=== PATIENT | female | born 1945 | race Caucasian/White ===

== ENCOUNTER 2024-07-25 21:36 | Inpatient (IN) | payer MEDICARE, OTHER, SELFPAY ==
[2024-07-25] VITALS (8 sets, daily range): BP systolic 101–126; BP diastolic 27–71
[2024-07-25 18:15] LABS: Urine Albumin 2+ (Neg - Trace); Urine Bilirubin Negative (Negative); Urine Character Slightly Cloudy (Clear); Urine Color Yellow; Urine Glucose Negative (Negative); Urine Ketone Negative (Negative); Urine Leukocyte 2+ (Negative); Urine Nitrite Positive (Negative); Urine Occult Blood 3+ (Negative); Urine Urobilinogen Negative (Neg - 1+)
[2024-07-25 18:21] LABS: ALT (SGPT) 15 U/L (0-35); AST (SGOT) 21 U/L (14-36); Albumin 3.1 g/dl (3.5-5.0); Alkaline Phosphatase 83 U/L (38-126); Blood Urea Nitrogen 64 mg/dl (7-17); Calcium 8.7 mg/dl (8.4-10.2); Carbon Dioxide 16 mmol/L (22-30); Chloride 97 mmol/L (98-107); Glucose 285 mg/dl (70-99); Hemoglobin 12.3 g/dL (12.0-16.0); Mean Corp Hgb Conc. 35.1 g/dL (33.0-37.0); Mean Corpuscular Volume 88.2 fL (81.0-99.0); Mean Platelet Volume 9.9 fL (7.4-10.4); Platelet Count 253 10^3/uL (130-400); Potassium 3.7 mmol/L (3.5-5.1); Red Blood Cell Count 3.97 10^6/uL (4.20-5.40); Red Cell Dist. Width 12.7 % (11.5-14.5); Sodium 133 mmol/L (135-145); Total Bilirubin 0.4 mg/dl (0.2-1.3); White Blood Cell Count 9.3 10^3/uL (4.8-10.8); eGFR 16.55
[2024-07-25 18:26] LABS: % Basophils 0.9 % (0-2); % Eosinophils 0.1 % (0-6); % Immature Granulocytes 1.2 % (0-0.5); % Lymphocytes 9.5 % (20.5-51.1); % Monocytes 8.5 % (1.7-9.3); % Neutrophils 79.8 % (42.2-75.2); Absolute Basophils 0.1 10^3/uL (0-0.2); Absolute Immature Granulocytes 0.1 10^3/uL (0-0.05); Absolute Lymphocytes 0.9 10^3/uL (1.2-3.4); Absolute Monocytes 0.8 10^3/uL (0.1-0.6); Absolute Neutrophils 7.4 10^3/uL (1.4-6.5); Nucleated Red Blood Cells % 0 %
[2024-07-25 19:08] LABS: Urine Squamous Cell 0-2 /LPF (Few); Urine White Cell 70-80 /HPF (0-5)
[2024-07-25 19:09] LABS: Urine Bacteria Many (Negative)
--- NOTE | 2024-07-25 19:09 | ED.GENMED ---
History of Present Illness
General
Chief Complaint: Weakness
Source: patient, family and prison records
Exam Limitations: altered mental status and dementia
Time Seen by Provider: 07/25/24 18:04
Nursing documentation reviewed up to this point in time: agreed with
History of Present Illness
History of Present Illness:
78-year-old female from [facility] diagnosed with a UTI urine showed gram-negative rods started on Macrobid yesterday the week ago she was able to get up and care for herself she has been in bed most of the day apparently
initially had low blood pressure, treated with fluid by EMS here appears globally weak and confused no fever no vomiting, spouse and transfer note states for intra-abdominal process has no abdominal pain my exam,
Past History
Past History
ED Past Medical History: Hypercholesterolemia and Other (Dementia hypertension left artificial knee hyperlipidemia osteoarthritis anxiety spinal stenosis)
ED Past Surgical History: Orthopedic
Social History
Tobacco: Non-smoker
Alcohol: None
Drug: None
Personal:
Living: prison
Employment: Retired
Review of Systems
Review of Systems
All Other Systems: Not applicable
Constitutional: Denies fever or fatigue
EENT: Reports no symptoms
Respiratory: Reports no symptoms
Cardiac: Reports no symptoms
ABD/GI: Reports no symptoms
: Reports no symptoms
Musculoskeletal: Reports no symptoms
Phy Exam
Physical Exam
Physical Exam:
Physical Exam
General: Chronically ill female initially hypotensive
Neck: Dry lips
Heart: Tachy
Lungs: Faint crackle
Abdomen: Soft nontender
Neuro: Globally weak knows her
Skin: no rash
Psychiatric: Flat affect
Extremities: no edema no calf pain
Course
Orders/Labs/Results
Orders:
Orders
07/25/24 17:47
Electrocardiogram (*1) Urgent
Reason for Study: Other
Other Reason for Exam: Possible Sepsis
Cardiac Monitoring- Treatment ONCE
IV Insert/Care/Rem.- Treatment PRN
Straight cath- Treatment ONCE
Complete Blood Count/With Diff Urgent
Comprehensive Metabolic Panel Urgent
Urinalysis Reflex To Culture Urgent
Date Specimen was Collected: 07/25/24
Time Specimen was Collected: 17:48
Urine Microscopic Reflex Cult Urgent
Urine Culture Urgent
JAYLENE Source: U
Specimen Description:
Date Specimen was Collected: 07/25/24
Time Specimen was Collected: 17:48
O2 Therapy [RESP] Urgent
Titrate/Wean O2 to maintain O2 sat greater than (%): 93
Special Instructions: TO MAINTAIN CONTINUOUS O2 SATS > OR = 93%
Pulse Ox/cont/shift [RESP] Urgent
Quantity: 1
Special Instructions: CONTINUOUS
07/25/24 17:48
EKG- Treatment ONCE
07/25/24 18:08
CR Chest Portable - 1 View Urgent
Comment:
Reason For Exam: sob
Reason Study Needs to be Portable: Patient Unstable
07/25/24 19:03
CT Abd/pel Without Iv Or Oral Urgent
Comment:
Reason For Exam: uti sepsis
Piperacillin/Tazo 2.25 Gram [Zosyn] 2.25 grams in 50 ml IV NOW
Abnormal Lab Results
07/25/24
17:47
RBC 3.97 L 10^6/uL
(4.20-5.40)
Hct 35.0 L %
(37.0-47.0)
Abs Immat Gran (auto) 0.1 H 10^3/uL
(0-0.05)
Absolute Neuts (auto) 7.4 H 10^3/uL
(1.4-6.5)
Absolute Lymphs (auto) 0.9 L 10^3/uL
(1.2-3.4)
Absolute Monos (auto) 0.8 H 10^3/uL
(0.1-0.6)
Immature Gran % 1.2 H %
(0-0.5)
Neutrophils % 79.8 H %
(42.2-75.2)
Lymphocytes % 9.5 L %
(20.5-51.1)
Sodium 133 L mmol/L
(135-145)
Chloride 97 L mmol/L
(98-107)
Carbon Dioxide 16 L mmol/L
(22-30)
BUN 64 H mg/dl
(7-17)
Creatinine 2.8 H mg/dL
(0.6-1.0)
Glucose 285 H mg/dl
(70-99)
Total Protein 6.0 L g/dl
(6.3-8.2)
Albumin 3.1 L g/dl
(3.5-5.0)
Ur Occult Blood Reflex 3+ A
(Negative)
Urine Nitrite (Reflex) Positive A
(Negative)
Leukocyte Esterase Rfl 2+ A
(Negative)
Urine RBC 3-6 A /HPF
(0-2)
Urine WBC (Reflex) 70-80 A /HPF
(0-5)
Urine Bacteria (Reflex) Many A
(Negative)
Urine Albumin (Reflex) 2+ A
(Neg - Trace)
07/25/24 17:47
07/25/24 17:47
Vital Signs
Initial and Last Documented VS:
Initial Vital Signs
Pulse Resp BP Pulse Ox
72 28 101/47 93
07/25/24 17:46 07/25/24 17:46 07/25/24 17:46 07/25/24 17:46
Last Documented Vital Signs
Temp Pulse Resp BP Pulse Ox
97.5 F 72 21 111/62 98
07/25/24 18:52 07/25/24 18:30 07/25/24 18:30 07/25/24 18:00 07/25/24 18:30
MDM/Problems Addressed
Differential Diagnosis Includes:
Sepsis dehydration UTI urinary obstruction
MDM/Problems Addressed:
Low blood pressure confusion renal insufficiency
Chronic conditions affecting care: Neurological disorder
Acute Exacerbation and/or Progression of Chronic Illness: Neurological disorder
*Radiology
Radiology exam reviewed: preliminary read by ED provider
*Pulse Oximetry
Patient hypoxic: yes
Comment: 91
*EKG
Interpreted by ED Provider?: Yes
Interpretation: abnormal
Comparison EKG: no comparison EKG present
Heart Rate: 78
Rate: normal
Martinez: normal axis
Ischemia: non-specific ST changes
*Radio Intelligence Operator Interpretation
Rate: normal
Interpretation: normal
Heart Rate: 78
Rhythm: sinus
*Critical Care Note
Total Time (30-74mins, 75-104mins- exclusive of procedures): 31
Data Reviewed
Source: patient, records and spouse
Prescriptions/Medications Considered But Not Given:
Stress dose steroid
Further Testing Considered But Not Given:
CT of the head
Update Note
Update Note:
Update labs are noted suspect she is dry transfer note states she has some abdominal pain send her for a CAT scan including other testing will check CT scan without contrast rule out urinary obstruction, started on broad-spectrum antibiotics
following resuscitation will be admitted
CRITICAL CARE STATEMENT: A total of 30 minutes of critical care time was provided for this patient. This includes management of unstable vital signs, evaluation of the patient at bedside, reviewing the patient's pertinent medical records discussion
with EMS providers and patient's family in addition to discussion with consultants, review of old EKGs and review of pertinent medical records. This time with separate from time utilized to perform the aforementioned documented procedures
ED Attending Note
-
Portions of this chart may have been created with voice recognition software.� Occasional wrong word or��sound alike� substitutions may have occurred due to the inherent limitations of voice recognition software.
Discharge Plan
Departure
Patient Disposition: Admit
Date of Disposition: 07/25/24
Time of Disposition: 19:17
Admit to: Telemetry
Presentation/result/management discussed w/ accepting MD/DO: Hospitalist
Patient with high blood pressure during this ER visit?: No
Condition: Fair
Covid-19: Not Applicable
Discharge Problem:
FLORIAN (acute kidney injury), Acute UTI
Interventions
Interventions:
*Risk Screen - Suicide Last Done: 07/25/24 18:29
*General Assessment Last Done: 07/25/24 18:28
*Neglect/Abuse Screening Last Done: 07/25/24 18:28
ED- Fall Risk Assessment Last Done: 07/25/24 18:29
*ED COVID-19 Vaccine History Last Done: 07/25/24 18:28
ED- Cardiac Assessment Last Done: 07/25/24 18:29
ED- Neurological Assessment Last Done: 07/25/24 18:29
ED- Pulmonary Assessment Last Done: 07/25/24 18:29
Discharge Date and Time
Print Language: MALTESE
--- NOTE | 2024-07-25 20:00 | HPS.HSE ---
Family Physician
-
Family Physician:
Chief Complaint
-
Altered mental status and urinary tract infection
History of Present Illness
This is a 78-year-old female with past medical history of dementia who currently resides at a dementia unit also has past medical history significant for hypertension, hyperlipidemia, prediabetes, presenting to ED due to worsening mental status.
Patient was diagnosed with a urinary tract infection at her facility yesterday. She had gram-negative rods. She was started on Macrobid yesterday. Patient usually was able to care for self for the has been more lethargic and mostly in bed all
day. She appears to be globally weak and more confused. Patient is currently unable to provide any additional history. No known history of fevers at home. No history of flank pain or an acute intra-abdominal process.
On arrival in the emergency department the patient was afebrile hemodynamically stable with blood pressure of 160 temp of 98.9 and oxygen saturation of 99% on room air. Chest x-ray was clear. ECG showed normal sinus rhythm at a rate of [address] or T wave changes. CBC was unremarkable. Chemistries notable for a bicarb of 16, BUN of 64 and a creatinine of 2.8. Elevated glucose at 285. UA was markedly positive.
Medical History
Past Medical History
Past Medical History: Reports Dementia and HTN
Past Surgical History: Reports None
Social History
Unable to obtain full social history at this time due to: Dementia
Family History
Family History: Not pertinent
Allergies / Home Medications
Allergies reflects when Allergies were last updated in [facility].
Home Medications with original date entered in [facility]
Allergy/Medication List:
Allergies
Allergy/AdvReac Type Severity Reaction Status Date / Time
No Known Allergies Allergy Unverified 07/25/24 19:47
Review of Systems
-
Unable to obtain full review of systems at this time due to: Dementia
Physical Exam
Vital Signs
Vital Signs
Temp Pulse Resp BP Pulse Ox
98.9 F 78 20 126/30 99
07/25/24 19:40 07/25/24 19:40 07/25/24 19:40 07/25/24 19:40 07/25/24 19:40
Physical Exam
General: Well Developed, Well Nourished, No Apparent Distress and Comfortable
HEENT: NormoCephalic, Anicteric, Moist mucous membranes and PERRLA
Respiratory: Clear
Cardiac: S1/S2 and Regular Rhythm
Breast: Deferred by me
GI: Soft, Non Tender, Non Distended, Normal Bowel Sounds and No Hepatosplenomegaly
Rectal: Deferred by Provider
Genito-urinary: Deferred by me
Musculoskeletal: No Clubbing, No Cyanosis and No Edema
Skin: Warm and Dry
Neuro: Awake, Oriented (oriented to person only) and Nonfocal/grossly intact
Hematologic/Lymphatic: No Lymphadenopathy
Psych: Calm
Laboratory Results
-
07/25/24 17:47
07/25/24 17:47
Laboratory Results
Total Bilirubin 0.4 mg/dl (0.2-1.3) 07/25/24 17:47
AST 21 U/L (14-36) 07/25/24 17:47
ALT 15 U/L (0-35) 07/25/24 17:47
Alkaline Phosphatase 83 U/L (38-126) 07/25/24 17:47
Data Reviewed
-
Diagnostic Radiology: Image Personally Visualized and interpreted
Medical Tests (Nuc Med, Echo, EKG etc): Image Personally Visualized and interpreted
Lab Data: Labs Reviewed by me
Old Records: Reviewed
Impression/Plan
-
IMPRESSION:
PLAN:
1. Toxic metabolic encephalopathy - (UTI w/ failure of outpatient abx). patient with history of dementia and was at dementia unit presents with worsening altered mental status typified by more lethargy and decreased interactiveness. At baseline
she is alert and oriented to person and can perform some activities of daily living. However she has been unable to do so for the last few days. She is currently alert but oriented to person only. She has no acute distress. Neurological exam was
nonfocal. She has a marked urinary tract infection which appears to be failing outpatient antibiotic treatment. Complicated by FLORIAN with some metabolic acidosis.
- admit to [facility]
- urine cultures sent
- continue ceftriaxone for now
2. FLORIAN - BUN 64, Cr 2.8. Unknown baseline creatinine. Non-oliguric. Suspect pre-renal flroian
- IV fluids overnight
- bladder scan to rule out obstruction
- obtain records in am
- avoid nephrotoxins
3. HTN - stable
- continue diltiazem
4. mild hyperglycemia. H/O prediabetes
- IV fluids, check a1c and bedside glucose (h/o prediabetes)
5. Intra-abdominal process - Notes from ans choice raise concern for intraabdominal process. However exam completely benign. Labs also not markedly alarming. No concern on my evaluation. CT abd w/o contrast pending.
- zosyn given in ED, continue ceftriaxone with metronidazole pending CT
DVT PPX - heparin sq
Code Status - DNR
--- NOTE | 2024-07-25 20:19 | PHANOTE ---
[employer] tech(07/25/24)-Called [facility] for medication list, they told me to call back in the morning to get it. Created list solely through [facility], due to lack of [facility] records. Unable to confirm any medications.
[2024-07-25] MEDS: ZOSYN 50 IV (20:39)
[2024-07-25] MEDS: LR 1000 IV (22:59)
[2024-07-25 23:08] LABS: Glucose - Point of Care 198 mg/dl (70-99)
[2024-07-25] MEDS: FLAGYL 500 MG 100 IV (23:57)
[2024-07-26] MEDS: HEPARIN 5000 UNITS SC ×3 (00:04→16:38)
[2024-07-26] MEDS: SEROQUEL PO (00:04)
[2024-07-26] MEDS: STERILE WATER FOR INJECTION 10 ML IV (02:11)
[2024-07-26] MEDS: ROCEPHIN 1000 MG IV (02:12)
[2024-07-26] MEDS: FLUSH (NSS) 1 FLUSH IV ×2 (02:13→02:14)
--- NOTE | 2024-07-26 04:05 | TRANSFER ---
Pt admitted to the unit from ED. Pt pulled over into bed from stretcher by nursing staff. Pt drowsy. AAXO1. Pt unable to answer admission questions. Bed alarm in place. Pt reoriented to room with call vega in reach. Plan of care ongoing.
[2024-07-26 06:15] LABS: Glucose - Point of Care 225 mg/dl (70-99)
[2024-07-26] MEDS: NOVOLOG FLEXPEN-LOW RESISTANCE 2 UNITS SC ×2 (06:42→18:07)
[2024-07-26] MEDS: TYLENOL/FEVERALL 650 MG RECTAL ×3 (07:23→23:51)
[2024-07-26 07:45] VITALS: BP 142/67
[2024-07-26 08:03] LABS: Glucose - Point of Care 199 mg/dl (70-99)
--- NOTE | 2024-07-26 08:19 | W.PN.HOSP.TC ---
Today's Communication/Plan
-
Abx pending Cx
Urology and GI eval
place dean
Assessment / Plan
Assessment / Plan
78yo F with PMHx of dementia, HLD, GERD brought from facility with worsening confyusion, recently foudn UTI and started on nitrofurantoin. C/O abd discomfort and CT abd showed signs of bladder outlet obstruction and cystitis. Also mild rectal wall
thickening with constipation
A/P:
#UTI
#Urinary retention with bladder outlet obstruction
#Non-obstructive nephrolithiasis
#FLORIAN with unknown Cr baseline and HAGMA
Follow Cr, if 2/2 obstruction - should improve with Dean, otherwise - nephrology
Ceftriaxone, pending UCx
Dean
#Rectal wall thickening with constipation
Laxatives and GI consult
#Dementia, unspecified
#GERD
cont homemmeds
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
#DJD
#L hemidiaphragm elevation
PCP follow up and monitoring
#Prediabetes
check HgbA1c
DVT ppx hep
DNR/DNI
I have spent at least 58min reviewing chart, test results, communication with consultants and direct patient care
Anticipated Discharge: > 48 hours
Subjective/Interval History
-
Date of Service: July 26, 2024
Objective Data
-
Labs:
Laboratory Results
07/26/24
07:31
WBC Pending
Hgb Pending
Hct Pending
Plt Count Pending
Sodium Pending
Potassium Pending
Chloride Pending
Carbon Dioxide Pending
BUN Pending
Creatinine Pending
Glucose Pending
Calcium Pending
Vital Signs:
Vital Signs
Temp Pulse Resp BP Pulse Ox
98.8 F 82 18 125/71 98
07/25/24 22:44 07/25/24 22:44 07/25/24 22:44 07/25/24 22:44 07/25/24 23:30
I&O
07/25/24 07/26/24 07/27/24
06:59 06:59 06:59
Intake Total 1050 / 1050 730 / 730
Balance 1050 / 1050 730 / 730
Review of Systems
-
History Source: Patient
All other systems: Reviewed and negative
Physical Exam
-
General: No Apparent Distress
HEENT: Normocephalic
Respiratory: Clear to Auscultation
Cardiac: Regular Rhythm
GI: Soft
Musculoskeletal: No Clubbing, No Cyanosis and No Edema
Skin: Warm
Neuro: Awake, Alert and Oriented (to herself only)
Psych: Calm
[2024-07-26 08:21] LABS: Hemoglobin 12.2 g/dL (12.0-16.0); Mean Corp Hgb Conc. 34.9 g/dL (33.0-37.0); Mean Corpuscular Volume 88.8 fL (81.0-99.0); Mean Platelet Volume 10.3 fL (7.4-10.4); Platelet Count 228 10^3/uL (130-400); Red Blood Cell Count 3.94 10^6/uL (4.20-5.40); Red Cell Dist. Width 12.5 % (11.5-14.5); White Blood Cell Count 8.1 10^3/uL (4.8-10.8)
[2024-07-26 08:42] LABS: Blood Urea Nitrogen 51 mg/dl (7-17); Calcium 8.7 mg/dl (8.4-10.2); Carbon Dioxide 17 mmol/L (22-30); Chloride 104 mmol/L (98-107); Glucose 204 mg/dl (70-99); Magnesium 2.4 mg/dl (1.6-2.3); Potassium 3.7 mmol/L (3.5-5.1); Sodium 137 mmol/L (135-145); eGFR 28.13
[2024-07-26 09:18] LABS: Glycohemoglobin (HgbA1c) 8.3 % (4.0-5.6)
--- NOTE | 2024-07-26 11:18 | PTOTSP ---
Dysphagia Evaluation
Patient presents with signs concerning for moderate oral and unspecified pharyngeal dysphagia at this time secondary to UTI with TME and baseline dementia.
Recommend:
1. IDDSI Level 4 Puree, IDDSI Level 0 Thin
2. Medications - crushed in puree if medically cleared
3. Strategies: 1:1 supervision/assist, upright to 90 degrees, PO only when awake/alert, small single sips/bites, slow rate, alternate sips/bites, ensure patient swallows (verbal cue/liquid wash as needed), remain upright for 30 minutes after PO as a
reflux precaution
4. Oral care 3x daily
5. Dysphagia tx at the acute care level.
[2024-07-26] MEDS: LR 1000 IV ×2 (11:28→21:41)
[2024-07-26] MEDS: ZEBETA 5 MG PO (12:19)
[2024-07-26] MEDS: SEROQUEL 25 MG PO ×3 (12:19→23:53)
[2024-07-26] MEDS: CARDIZEM CD 240 MG PO (12:19)
[2024-07-26 12:38] LABS: Glucose - Point of Care 178 mg/dl (70-99)
[2024-07-26] MEDS: NOVOLOG FLEXPEN-LOW RESISTANCE 1 UNITS SC (12:50)
--- NOTE | 2024-07-26 15:11 | CON.GI ---
Addendum entered and electronically signed by Foreign Bear MD 07/26/24 17:32:
I saw and examined the patient.
The PA's note was reviewed and I agree with the note.
Comment:
78 year old female h/o dementia residing in [place] who p/w UTI. CT on admission showed mild rectal wall thickening among other more relevant findings. In reviewing with spouse patient doesn't have rectal bleeding/diarrhea/melena as far as he is aware.
Attempted to contact [place] but nursing not available. Rectal exam with increased stool burden. Agree with enema. Pt's does not wish any aggressive evaluation. GI will s/o.
Original Note:
Consultation
-
Date/Time Consultation Requested: 07/26/24814
Date/Time Consultation Performed: 07/26/24 1510
Requesting Provider: Jose Cruz Sprague MD
Performing Provider: COLIN Mueller
Reason for Consultation: rectal wall thickening
Medical History
Chief Complaint / HPI
Chief Complaint: weakness
History of Present Illness:
Pt is an 78yo with hx dementia, HTN, hypercholesterolemia, anxiety presents from [facility] with UTI. She was placed on Macrobid and noted urinary retention, incontinence and FLORIAN. CT on admission with 3 mm non obstructing renal stone with
bladder distention and distention along ureter with intraanal collecting system distention possible back pressure and mild fecal burden with mild rectal wall thickening. In reviewing with spouse patient noted with mental decline last fall then
placed in Memory care in November. After several month adjustment she was doing ok but over then weekend increased weakness and change in mentation with increased incontinence and concern for UTI. She was placed on Macrobid but worsening symptoms
leading to admission. Per spouse noted with confusion but minimal verbal since admission. Some hx GERD but no nausea, vomiting, dysphagia, diarrhea, constipation, or rectal bleeding. hx prior cologuard neg 4 years ago and has declined
colonoscopies in past. Pt also noted with fever after admission.
Past Medical History
Past Medical History: Hypercholesterolemia, Psychiatric (anxiety) and Other (dementia, HTN, arthritis, spinal stenosis )
Past Surgical History: Orthopedic (TKR)
Social History
Tobacco: Non-Smoker
Alcohol: None
Drug: None
Personal:
Living: [facility]
Employment: Retired
Family History
Family History: Other
Allergies / Home Medications
Allergy/AdvReac Type Severity Reaction Status Date / Time
No Known Allergies Allergy Unverified 07/25/24 19:47
�Medication �Instructions �Recorded
atorvastatin 20 mg tablet 20 mg PO DAILY 07/25/24
bisoprolol 5 1 tab PO DAILY 07/25/24
mg-hydrochlorothiazide 6.25 mg
tablet
diltiazem HCl 240 mg 240 mg PO DAILY 07/25/24
capsule,extended release 24 hr
famotidine 40 mg tablet 40 mg PO DAILY 07/25/24
nitrofurantoin macrocrystal 100 mg 100 mg PO BID 07/25/24
capsule
quetiapine 25 mg tablet 25 mg PO BID 07/25/24
Review of Systems
-
History Source: Patient
Constitutional: Reports Weight Loss (few lbs with move to memory care )
EENT: Reports No Symptoms
Respiratory: Reports No Symptoms
Cardiac: Reports No Symptoms
Abdomen/GI: Reports Constipated
: Reports Incontinence
Musculoskeletal: Reports No Symptoms
Skin: Reports No Symptoms
Neurological: Reports Other (worsening mental status last few days )
Endocrine: Reports No Symptoms
Hematologic/Lymphatic: Reports No Symptoms
Vital Signs
Temp Pulse Resp BP Pulse Ox
97.7 F 106 17 138/76 94
07/26/24 07:45 07/26/24 12:19 07/26/24 07:45 07/26/24 12:19 07/26/24 07:45
Physical Exam
Exam
General: Well Developed, Well Nourished and No Apparent Distress
HEENT: Normocephalic and Anicteric
Respiratory: Clear
Cardiac: Regular Rhythm
GI: Soft, Non Tender and Non Distended
Rectal: Other (brown stool with increased stool burden on exam, disimpacted for small amount )
Musculoskeletal: No Clubbing and No Cyanosis
Skin: Warm and Dry
Neuro: Other (sleepy but opens eyes to stimulation, non verbal )
Psych: Calm
Results
WBC 8.1 10^3/uL (4.8-10.8) 07/26/24 07:31
Hgb 12.2 g/dL (12.0-16.0) 07/26/24 07:31
Hct 35.0 % (37.0-47.0) L 07/26/24 07:31
MCV 88.8 fL (81.0-99.0) 07/26/24 07:31
Plt Count 228 10^3/uL (130-400) 07/26/24 07:31
Absolute Neuts (auto) 7.4 10^3/uL (1.4-6.5) H 07/25/24 17:47
Sodium 137 mmol/L (135-145) 07/26/24 07:31
Potassium 3.7 mmol/L (3.5-5.1) 07/26/24 07:31
Chloride 104 mmol/L (98-107) 07/26/24 07:31
Carbon Dioxide 17 mmol/L (22-30) L 07/26/24 07:31
BUN 51 mg/dl (7-17) H 07/26/24 07:31
Creatinine 1.8 mg/dL (0.6-1.0) H 07/26/24 07:31
Calcium 8.7 mg/dl (8.4-10.2) 07/26/24 07:31
Total Bilirubin 0.4 mg/dl (0.2-1.3) 07/25/24 17:47
AST 21 U/L (14-36) 07/25/24 17:47
ALT 15 U/L (0-35) 07/25/24 17:47
Alkaline Phosphatase 83 U/L (38-126) 07/25/24 17:47
Diagnostic Image Results:
07/25/24 CT Abd/pel Without Iv Or Oral
3 mm nonobstructing left renal calculus. No right renal calculus. No ureteral calculus, bilaterally.
Moderate distention of the urinary bladder, and mild diffuse distention along the entire course of the ureters with minimal intrarenal collecting system and distention. Possibly reflecting back pressure from bladder distention. Cannot entirely
exclude reflux.
Mild soft tissue stranding adjacent to the bladder wall, raising possibility of cystitis.
Prior GI Procedures:
Colonoscopy: none
neg cologuard 4 years ago
Assessment / Plan
-
Pt is an 78yo with hx dementia, HTN, hypercholesterolemia, anxiety presents from [facility] with UTI. She was placed on Macrobid and noted urinary retention, incontinence and FLORIAN. CT on admission with 3 mm non obstructing renal stone with
bladder distention and distention along ureter with intraanal collecting system distention possible back pressure and mild fecal burden with mild rectal wall thickening. In reviewing with spouse patient noted with mental decline last fall then
placed in Memory care in November. After several month adjustment she was doing ok but over then weekend increased weakness and change in mentation with increased incontinence and concern for UTI. She was placed on Macrobid but worsening symptoms
leading to admission. Rectal exam with increased stool burden
-fever
-UTI
-fecal impaction with rectal thickening
-FLORIAN on admission
-decreased appetite
-dementia
other med problems:
-HTN
-hypercholesterolemia
-anxiety
-DNR
PLAN:
PT with soft impaction on rectal exam
s/p disimpacted for small amount of stool
will given enema to clear stool
add miralax daily
cont abx for UTI
IVF with FLORIAN
pureed diet as tolerated
long discussion with spouse. Pt would want conservative measure ok for enema but no aggressive measures with colonoscopy or GI testing with dementia
discussed palliative care options - he will consider pending hospital course
-
-
Thank you for consultation and allowing me to participate in the patient's care. Please call the entertainment production professional GI physician during the after hours with any questions or concerns.
--- NOTE | 2024-07-26 15:38 | CON.GI ---
Consultation
-
Date/Time Consultation Requested: 07/26/2024
Date/Time Consultation Performed: 07/26/2024
Performing Provider: Foreign Bear
Reason for Consultation: rectal wall thickening
Medical History
Chief Complaint / HPI
Chief Complaint: rectal wall thickening
History of Present Illness:
The patient is a 78 year old female with h/o dementia in NH, HLD, GERD sent in for worsening confusion. Found to have UTI and started on nitrofurantoin. Pt had CT abd on admission which showed bladder outlet obstruction and cystitis, as well as
mild rectal wall thickening. Attempted to contact ME but no answer. Spoke with , who states he is not aware of any diarrhea/blood in stool for the pt.
Past Medical History
Past Medical History: HTN and Other
Past Surgical History: Other
Social History
Tobacco: Non-Smoker
Alcohol: None
Allergies / Home Medications
Allergy/AdvReac Type Severity Reaction Status Date / Time
No Known Allergies Allergy Unverified 07/25/24 19:47
�Medication �Instructions �Recorded
atorvastatin 20 mg tablet 20 mg PO DAILY 07/25/24
bisoprolol 5 1 tab PO DAILY 07/25/24
mg-hydrochlorothiazide 6.25 mg
tablet
diltiazem HCl 240 mg 240 mg PO DAILY 07/25/24
capsule,extended release 24 hr
famotidine 40 mg tablet 40 mg PO DAILY 07/25/24
nitrofurantoin macrocrystal 100 mg 100 mg PO BID 07/25/24
capsule
quetiapine 25 mg tablet 25 mg PO BID 07/25/24
Review of Systems
Vital Signs
Temp Pulse Resp BP Pulse Ox
97.7 F 106 17 138/76 94
07/26/24 07:45 07/26/24 12:19 07/26/24 07:45 07/26/24 12:19 07/26/24 07:45
Physical Exam
Exam
General: Well Developed and Well Nourished
HEENT: Normocephalic
Respiratory: Clear
Cardiac: S1/S2
GI: Soft, Non Tender, Non Distended and Normal Bowel Sounds
Results
WBC 8.1 10^3/uL (4.8-10.8) 07/26/24 07:31
Hgb 12.2 g/dL (12.0-16.0) 07/26/24 07:31
Hct 35.0 % (37.0-47.0) L 07/26/24 07:31
MCV 88.8 fL (81.0-99.0) 07/26/24 07:31
Plt Count 228 10^3/uL (130-400) 07/26/24 07:31
Absolute Neuts (auto) 7.4 10^3/uL (1.4-6.5) H 07/25/24 17:47
Sodium 137 mmol/L (135-145) 07/26/24 07:31
Potassium 3.7 mmol/L (3.5-5.1) 07/26/24 07:31
Chloride 104 mmol/L (98-107) 07/26/24 07:31
Carbon Dioxide 17 mmol/L (22-30) L 07/26/24 07:31
BUN 51 mg/dl (7-17) H 07/26/24 07:31
Creatinine 1.8 mg/dL (0.6-1.0) H 07/26/24 07:31
Calcium 8.7 mg/dl (8.4-10.2) 07/26/24 07:31
Total Bilirubin 0.4 mg/dl (0.2-1.3) 07/25/24 17:47
AST 21 U/L (14-36) 07/25/24 17:47
ALT 15 U/L (0-35) 07/25/24 17:47
Alkaline Phosphatase 83 U/L (38-126) 07/25/24 17:47
Diagnostic Image Results:
Prior GI Procedures:
EGD:
Colonoscopy:
-
-
Thank you for consultation and allowing me to participate in the patient's care. Please call the electronic page makeup system operator GI physician during the after hours with any questions or concerns.
[2024-07-26 16:00] VITALS: BP 136/78
[2024-07-26 17:28] LABS: Glucose - Point of Care 201 mg/dl (70-99)
--- NOTE | 2024-07-26 20:35 | CONS.URO ---
Consultation
-
Date/Time Consultation Requested: 07/26/24
Date/Time Consultation Performed: 07/26/24
Requesting Provider: Darcie
Performing Provider: Andrew
Reason for Consultation: urinary retention, FLORIAN
Medical History
History of Present Illness
78F w/ dementia in memory care unit @[facility] presenting to ED w/ increased weakness, mental status changes, and increasing confusion.
Previously placed on Macrobid but continued to have worsening symptoms despite antibiotic therapy.
No prior urologic history noted per spouse.
Past Medical History
Past Medical History: Dementia, HTN, Hypercholesterolemia, Psychiatric (anxiety) and Other (arthritis, spinal stenosis)
Past Surgical History: Orthopedic (TKR)
Social History
Tobacco: Non-smoker
Alcohol: None
Drug: None
Personal:
Living: [place]way
Employment: Retired
Family History
Family History: Reviewed & Not Pertinent
Allergies/Home Medications
Allergies
Allergy/AdvReac Type Severity Reaction Status Date / Time
No Known Allergies Allergy Unverified 07/25/24 19:47
Home Medications
�Medication �Instructions �Recorded �Confirmed �Type
atorvastatin 20 mg tablet 20 mg PO DAILY 07/25/24 History
bisoprolol 5 1 tab PO DAILY 07/25/24 History
mg-hydrochlorothiazide 6.25 mg
tablet
diltiazem HCl 240 mg 240 mg PO DAILY 07/25/24 History
capsule,extended release 24 hr
famotidine 40 mg tablet 40 mg PO DAILY 07/25/24 History
nitrofurantoin macrocrystal 100 mg 100 mg PO BID 07/25/24 History
capsule
quetiapine 25 mg tablet 25 mg PO BID 07/25/24 History
Review of Systems
-
Unable to obtain full review of systems at this time due to: Dementia
History Source: Patient and Family
A 12 point Review of Systems was completed except as noted: No
Physical Exam
Vital Signs
Vital Signs
Temp Pulse Resp BP Pulse Ox
100.8 F H 115 17 136/78 91
07/26/24 17:00 07/26/24 16:00 07/26/24 07:45 07/26/24 16:00 07/26/24 16:00
Lab / Testing Results
Laboratory Results
07/26/24 07:31
07/26/24 07:31
Physical Exam
General: No Apparent Distress and Other (sleeping)
HEENT: Normocephalic and Anicteric
Respiratory: Non Labored Respirations
Breast: Deferred by me
GI: Soft, Non Tender and Non Distended
Rectal: Deferred by Provider
Genito-urinary: Clear Urine and Giles Catheter
Musculoskeletal: No Edema
Skin: Warm and Dry
Neuro: Nonfocal/Grossly Intact
Hematologic/Lymphatic: No Lymphadenopathy
Psych: Confused and Apparent Dementia
Assessment / Plan
-
cUTI
Acute urinary retention
FLORIAN
WBC WNL
Cr 2.8 => 1.8
UA +nitrites, +WBCs, many bacteria
UCx pending
CTAP w/o IV =>
3 mm non-obstructing left renal stone
Mild bilateral ureteral distention w/o hydronephrosis - suspected secondary to reflux or urinary retention
Distention of bladder w/ soft tissue stranding suspicious for cystitis
History obtained from spouse given patient's dementia.
- Maintain Giles catheter to drainage
- Bowel regimen to resolve impaction per GI
- IV Ceftriaxone pending UCx S/S
- Trend Cr w/ Giles catheter decompression
- Pending GOC determination by patient and spouse, consider indwelling Giles catheter long-term given rUTIs and poor mental status
D/w spouse.
D/w Hospitalist.
Data Reviewed
-
Total Time Spent with Patient (in minutes): 45
CT Scan: Image personally visualized and interpreted, Report Reviewed by Me, Discussed with Physician and Discussed with Family
Lab Data: Labs Reviewed, Discussed with Physician and Discussed with Family
Old Records: Reviewed
[2024-07-26 21:26] LABS: Glucose - Point of Care 247 mg/dl (70-99)
[2024-07-26 23:30] VITALS: BP 125/80
[2024-07-27] MEDS: FLUSH (NSS) 1 FLUSH IV ×3 (00:57→23:39)
[2024-07-27] MEDS: HEPARIN 5000 UNITS SC ×3 (00:59→15:47)
[2024-07-27] MEDS: STERILE WATER FOR INJECTION 10 ML IV ×2 (01:00→23:38)
[2024-07-27] MEDS: ROCEPHIN 1000 MG IV ×2 (01:01→23:38)
--- NOTE | 2024-07-27 06:54 | CM ---
met with patient who was sleeping most of day and tiana at bedside.patient lives at [facility] in memory care unit .she was able to ambulate with a rw and needs A with her adl.she has had a vn through [facility] at times.she has no hx
of ip rehab.
PCP is dr robert boyd and [facility] supplies meds.
PMH: dementia,htn,arthritis,uti's,spinal stenosis.
patient is adm with inc weakness,ms changes,inc confusion.she has uti on iv rocephin,urinary retention and dean catheter placed. she has a non obstructing renal calculus.Plan:dc back to memory care unit at [facility].
[2024-07-27] MEDS: LR 1000 IV (07:37)
[2024-07-27 07:40] VITALS: BP 142/68
[2024-07-27 07:57] LABS: Glucose - Point of Care 209 mg/dl (70-99)
[2024-07-27 08:29] LABS: Hematocrit 35.7 % (37.0-47.0); Hemoglobin 12.2 g/dL (12.0-16.0); Mean Corp Hgb Conc. 34.2 g/dL (33.0-37.0); Mean Corpuscular Hgb 30.9 pg (27.0-31.0); Mean Corpuscular Volume 90.4 fL (81.0-99.0); Mean Platelet Volume 10.6 fL (7.4-10.4); Platelet Count 184 10^3/uL (130-400); Red Blood Cell Count 3.95 10^6/uL (4.20-5.40); Red Cell Dist. Width 12.9 % (11.5-14.5); White Blood Cell Count 10.8 10^3/uL (4.8-10.8)
[2024-07-27 08:52] LABS: ALT (SGPT) 18 U/L (0-35); AST (SGOT) 45 U/L (14-36); Albumin 2.6 g/dl (3.5-5.0); Alkaline Phosphatase 95 U/L (38-126); Blood Urea Nitrogen 32 mg/dl (7-17); Calcium 8.6 mg/dl (8.4-10.2); Carbon Dioxide 25 mmol/L (22-30); Chloride 104 mmol/L (98-107); Glucose 208 mg/dl (70-99); Potassium 3.7 mmol/L (3.5-5.1); Sodium 142 mmol/L (135-145); Total Bilirubin 0.4 mg/dl (0.2-1.3); Total Protein 5.4 g/dl (6.3-8.2); eGFR 56.95
[2024-07-27] MEDS: NOVOLOG FLEXPEN-LOW RESISTANCE 2 UNITS SC ×2 (09:07→12:37)
[2024-07-27] MEDS: ZEBETA 5 MG PO (09:08)
[2024-07-27] MEDS: SEROQUEL 25 MG PO ×3 (09:08→21:10)
[2024-07-27] MEDS: CARDIZEM CD 240 MG PO (09:08)
[2024-07-27] MEDS: MIRALAX 17 GRAMS PO (09:08)
[2024-07-27 09:22] LABS: Absolute Neutrophils -Man Diff 8.3 10^3/uL (1.4-6.5); Band Neutrophils 11 % (0-3); Lymphocytes 16 % (20-51); Metamyelocytes 2 % (-); Monocytes 5 % (2-9); Normal RBC Morphology No; Nucleated Red Blood Cells 1 (-); Platelets Checked Yes; Segmented Neutrophils 66 % (42-75)
[2024-07-27 09:23] LABS: Anisocytosis 1+; Hypochromasia Slight; Polychromasia 1+
[2024-07-27 09:24] LABS: Total Cells Counted 100
--- NOTE | 2024-07-27 10:12 | W.PN.HOSP.TC ---
Today's Communication/Plan
-
EKG
telemetry
cont Ceftriaxone pending Ucx
Assessment / Plan
Assessment / Plan
78yo F with PMHx of dementia, HLD, GERD brought from facility with worsening confusion, recently found UTI and started on nitrofurantoin. C/O abd discomfort and CT abd showed signs of bladder outlet obstruction and cystitis. Also mild rectal wall
thickening with constipation
As per - for the past 3 weeks patient became more lethargic, stopped going for a food, became incontinent of the urine.
A/P:
#Acute metabolic encephalopathy most likely 2/2 UTI
#Urinary retention with bladder outlet obstruction
#Non-obstructive nephrolithiasis
#FLORIAN with unknown Cr baseline and HAGMA
Follow Cr, if 2/2 obstruction - should improve with Dean, otherwise - nephrology
Ceftriaxone, pending UCx
Daen
Urology: cont with dean, TOV before d/c if mentation improves
IVF
#Rectal wall thickening with constipation
Laxatives and GI consult
As per patient - currently hesitant for colonoscopy
cont with enema and laxatives
#Irregular HR
telemetry
EKG
#Dementia, unspecified
#GERD
cont home meds
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
#DJD
#L hemidiaphragm elevation
PCP follow up and monitoring
#DM type 2
HgbA1c 8.3%
DVT ppx hep
DNR/DNI
I have spent at least 58min reviewing chart, test results, communication with consultants and direct patient care
Anticipated Discharge: > 48 hours
Subjective/Interval History
-
Date of Service: July 27, 2024
Objective Data
-
Labs:
Laboratory Results
07/27/24
07:26
WBC 10.8
Hgb 12.2
Hct 35.7 L
Plt Count 184
Sodium 142
Potassium 3.7
Chloride 104
Carbon Dioxide 25
BUN 32 H
Creatinine 1.0
Glucose 208 H
Calcium 8.6
Total Bilirubin 0.4
AST 45 H
ALT 18
Alkaline Phosphatase 95
Vital Signs:
Vital Signs
Temp Pulse Resp BP Pulse Ox
98.5 F 105 18 142/68 95
07/27/24 07:40 07/27/24 07:40 07/27/24 07:40 07/27/24 07:40 07/27/24 07:40
I&O
07/26/24 07/27/24 07/28/24
06:59 06:59 06:59
Intake Total 1050 / 1050 1930 / 1930
Output Total 2175 / 2175
Balance 1050 / 1050 -245 / -245
Review of Systems
-
Unable to obtain full review of systems at this time due to: Acuity
Physical Exam
-
HEENT: Moist Mucous Membranes
Respiratory: Clear to Auscultation
Cardiac: Irregular Rhythm
GI: Soft, Nontender and Nondistended
Genito-urinary: Dean
Musculoskeletal: No Clubbing, No Cyanosis and No Edema
Skin: Warm
Neuro: Awake, Alert, Oriented and AO x 3
Psych: Calm
--- NOTE | 2024-07-27 10:34 | W.PN.UPDATE ---
Update Note
Progress Note Update
since patient still lethargic and now with new onset Afib - Head CT, MRI brain. if signs of stroke - will need neuro. STart ASA, statin, however due to longevity of the symptoms - not candidate for agressive treatment with tPa or thrombectomy
[2024-07-27] MEDS: LOPRESSOR 25 MG PO ×2 (10:56→21:10)
--- NOTE | 2024-07-27 11:09 | CM ---
Addendum entered by Ana Marie 07/27/24 15:32:
Referral sent in [facility].
Original Note:
competitive intelligence manager reviewed patient's chart and met with patient and patient was admitted from [facility] Memory Care unit, patient required assistance with dressing, used a walker with walking for short distances and uses w/c for longer distances,
patient is able to propel w/c per Camelia in admissions at [facility]. Patient needs PT/OT to assist with discharge planning for patient.
Plan; Message left with patient's spouse to review plan for patient.
[2024-07-27] MEDS: NSS 1000 IV (11:40)
[2024-07-27 11:52] LABS: Glucose - Point of Care 230 mg/dl (70-99)
[2024-07-27 12:00] VITALS: BP 128/61; PULSE 86; O2SAT 97
[2024-07-27 12:10] VITALS: BP 128/61; PULSE 74; O2SAT 97
--- NOTE | 2024-07-27 12:14 | CON.CAR ---
Addendum entered and electronically signed by Olman Angel MD 07/27/24 17:03:
I saw and examined the patient.
The [employer]'s note was reviewed and I agree with the note.
78-year-old woman with a history of dementia, hypertension hypercholesterolemia and diabetes who was admitted to the hospital service with a mental status change initial ECG with sinus rhythm. Patient now has atrial fibrillation. Heart rates
appear to be reasonably well-controlled on current dosing of Cardizem.. Appears that patient was on both Cardizem and bisoprolol as an outpatient. Unclear if prior history of atrial fibrillation. Unclear if she was found to have any
contraindication to anticoagulation in the past. Unclear with patient's fall risk or if she has had additional bleeding.
-Continue assessment of mental status as directed by primary team.
-Continue rate control with current medical therapy
-Will try to obtain additional information regarding atrial fibrillation and will continue to assess risk versus benefit of anticoagulation.
Original Note:
Consultation
Consultation Request
Date/Time Consultation Requested: 07/27/2024 10:30
Date/Time Consultation Performed: 07/27/2024 12:10
Requesting Provider: Dr. Nicolas
Performing Provider: COLIN Osorio for Dr. Angel
Reason for Consultation: Atrial fibrillation with rapid ventricular response
Medical History
-
Chief Complaint: Change in mental status
History of Present Illness:
Maggie Wilson is an 78-year-old female with hypertension, dyslipidemia, type 2 diabetes mellitus, hemangioma T9 and T11, and dementia who presented to the emergency department 07/25/2024 with a chief complaint and change in mental status. She
currently resides at [facility] in the memory care unit. The day prior to arrival she was started on Macrobid. She presented with an FLORIAN. Cardiology was consulted for atrial fibrillation with rapid ventricular response. She arrived to the
emergency department in sinus rhythm. Unfortunately, due to her mental status she is unable to contribute to this consultation.
Past Medical History
Past Medical History: HTN, Hypercholesterolemia and NIDDM
Social History
Tobacco: Non-Smoker
Alcohol: None
Drug: None
Personal:
Living: [facility]
Employment: Retired
Family History
Family History: Unable to Obtain
Allergies / Home Medications
Allergy/AdvReac Type Severity Reaction Status Date / Time
No Known Allergies Allergy Unverified 07/25/24 19:47
�Medication �Instructions �Recorded �Confirmed �Type
atorvastatin 20 mg tablet 20 mg PO DAILY 07/25/24 History
bisoprolol 5 1 tab PO DAILY 07/25/24 History
mg-hydrochlorothiazide 6.25 mg
tablet
diltiazem HCl 240 mg 240 mg PO DAILY 07/25/24 History
capsule,extended release 24 hr
famotidine 40 mg tablet 40 mg PO DAILY 07/25/24 History
nitrofurantoin macrocrystal 100 mg 100 mg PO BID 07/25/24 History
capsule
quetiapine 25 mg tablet 25 mg PO BID 07/25/24 History
Review of Systems
-
Unable to obtain full review of systems at this time due to: Dementia
History Source: Patient
Physical Exam
Vital Signs
Temp Pulse Resp BP Pulse Ox
98.5 F 105 18 142/68 95
07/27/24 07:40 07/27/24 07:40 07/27/24 07:40 07/27/24 07:40 07/27/24 07:40
Lab Results
07/27/24 07:26
07/27/24 07:26
Physical Exam
General: Well Developed, Well Nourished, No Apparent Distress and Comfortable
HEENT: Normocephalic, Anicteric and Moist Mucous Membranes
Respiratory: Clear and Non Labored Respirations
Cardiac: S1/S2 and Irregular Rhythm
Breast: Deferred by me
GI: Soft, Non Tender, Non Distended and Normal Bowel Sounds
Rectal: Deferred by Provider
Genito-urinary: No Costovertebral Tender
Musculoskeletal: No Clubbing, No Cyanosis and No Edema
Skin: Warm and Dry
Neuro: Awake
Hematologic/Lymphatic: No Lymphadenopathy
Psych: Calm
Impression / Plan
-
Atrial fibrillation with ventricular response
-Rate controlled on diltiazem (her home dose of 240 mg)
-Oral Anticoagulation: Non prior to arrival, no oral anticoagulation prior to MRI
-[id number]: score at least 5 (HTN, age 75 or more, Diabetes Mellitus, female gender)
HTN, bisoprolol�HCTZ on hold
Acute metabolic encephalopathy, in the setting of UTI, per primary and neurology, MRI pending
FLORIAN, resolved, Giles catheter in place, urology following as she has left renal calculus
Type 2 diabetes mellitus, HgbA1c 8.3%
Thoracic hemangioma T9 and T11
Data Reviewed
-
EKG: Report Reviewed by me (Atrial fibrillation with RVR, non specific T wave abnormality, rate 103)
Radiology: Report Reviewed by me (CXR: Diminished degree of inspiration. Minor asymmetric elevation of left diaphragm compared to the right. No evidence of pneumonia or congestive heart failure. No pneumothorax. No apparent pleural effusion.)
CT Scan: Report Reviewed by me (Head: No acute intracranial abnormality identified.) and Other (Abd/Pel: 3 mm non-obstructing left renal calculus)
Labs: Labs Reviewed by me
Old Records: Reviewed
[2024-07-27] MEDS: ASPIRIN 325 MG PO (12:37)
[2024-07-27 15:56] VITALS: BP 104/60
--- NOTE | 2024-07-27 16:15 | CON.NEURO4 ---
Consultation - Neurology 4
-
CONSULTING PHYSICIAN: Walter Og MD (Neurology)
REFERRING PHYSICIAN: Hospitalist
DICTATED BY: Walter Menard MD
DATE/TIME OF REQUEST: July 27, 2024
DATE/TIME OF CONSULTATION: 07/27/2024 1615
Reason for Consultation: Altered mental status
History of Present Illness:
This is a 78year old (right) handed (male) who has presented to the hospital with (chief complaint) altered mental status. He gives a history of hypertension osteoarthritis spinal stenosis mild dementia new onset atrial fibrillation who had been
in usual state of health till July 22 when she became more confused, lethargic and unable to interact with her who assist with her daily needs. She is bedbound and needs care [id number]. Initially urine had shown gram-negative
rods and was placed on Macrobid
EKG showed atrial fibrillation
Past Medical History: Dementia atrial fibrillation
Surgical History: Noncontributory
Family History: Noncontributory
Social History: Retired lives at assisted living facility with her
Allergies: No known allergies
Home Medications: Addendum
Review of Symptoms:
Patient denies any fever, headache, chest pain, shortness of breath, GI or symptoms.
�Per the HPI.�All systems are reviewed negative except above.
�-
Vital Signs:
The patient has a .
Physical Exam:
The patient is afebrile, heart sounds S1 and S2 are (regular / irregular), and chest is clear to auscultation bilaterally.
- If not clear, describe.
Neurologic Examination:
The patient is awake, alert and oriented x none. She is able to follow commands and answer questions appropriately. Speech is limited there is expressive aphasia or dysarthria.
On cranial nerve assessment, pupils are 3 mm bilateral, round and reactive to light and accommodation. Visual pineda are full. Extraocular movements are intact. Facial sensations are intact and bilaterally symmetrical, there is no facial asymmetry.
Hearing is intact bilaterally to normal conversation volume. Tongue palate and uvula are midline. Sternocleidomastoid strengths are full bilaterally.
Motor strengths are 4/5 bilateral upper and lower extremities on medical research [place] scale. There is no drift or involuntary movement noted.
Deep tendon reflexes are + bilateral upper and lower extremities and Babinski is absent bilaterally. Sensations of pain, touch, temperature and vibration are intact and bilaterally symmetrical. There was no extinction noted on double simultaneous
stimulation. Coordination is intact by finger to nose bilaterally.
Lab Results: See addendum
Neuro Imaging: CT head shows atrophy. Small vessel disease. Dilated ventricles
Impression:
Ms.) SHELLI DIAZ is a 78 year old F who has presented to the hospital with (symptoms/chief complaint). Of altered mental status secondary to dementia with new onset UTI and atrial fibrillation with
[id number]: score of 5 (HTN, age 75 or more, Diabetes Mellitus, female gender)
Differentials for the patient's presentation include:
1. Encephalopathy secondary to urosepsis
2. Dementia
3. Atrial fibrillation
Recommendations:
1. IV antibiotics
2. IV fluids
3. Nutritional support
4. Consider Eliquis given new onset atrial fibrillation
5. Keep MAP at 100
Discussed patient care with: Hospitalist
[2024-07-27 16:56] LABS: Glucose - Point of Care 192 mg/dl (70-99)
[2024-07-27] MEDS: NOVOLOG FLEXPEN-LOW RESISTANCE 1 UNITS SC (17:34)
[2024-07-27 20:06] VITALS: BP 125/67
[2024-07-27] MEDS: ELIQUIS 5 MG PO (21:10)
[2024-07-27 22:11] LABS: Glucose - Point of Care 178 mg/dl (70-99)
[2024-07-27 23:48] VITALS: BP 121/66
[2024-07-28] MEDS: FLUSH (NSS) 1 FLUSH IV ×2 (02:19→23:33)
[2024-07-28 03:53] VITALS: BP 110/70
[2024-07-28 07:48] LABS: Hematocrit 36.5 % (37.0-47.0); Hemoglobin 12.3 g/dL (12.0-16.0); Mean Corp Hgb Conc. 33.7 g/dL (33.0-37.0); Mean Corpuscular Hgb 29.9 pg (27.0-31.0); Mean Corpuscular Volume 88.8 fL (81.0-99.0); Mean Platelet Volume 10.8 fL (7.4-10.4); Platelet Count 163 10^3/uL (130-400); Red Blood Cell Count 4.11 10^6/uL (4.20-5.40); Red Cell Dist. Width 13.4 % (11.5-14.5)
[2024-07-28 07:50] VITALS: BP 135/69
[2024-07-28 07:59] LABS: ALT (SGPT) 25 U/L (0-35); AST (SGOT) 61 U/L (14-36); Albumin 2.6 g/dl (3.5-5.0); Alkaline Phosphatase 101 U/L (38-126); Blood Urea Nitrogen 26 mg/dl (7-17); Calcium 8.4 mg/dl (8.4-10.2); Carbon Dioxide 23 mmol/L (22-30); Chloride 109 mmol/L (98-107); HDL Cholesterol 16 mg/dl; LDL Cholesterol, Calculated 18 mg/dl; Potassium 3.8 mmol/L (3.5-5.1); Sodium 144 mmol/L (135-145); Total Bilirubin 0.5 mg/dl (0.2-1.3); Total Cholesterol 73 mg/dl (50-199); Total Protein 5.3 g/dl (6.3-8.2); Triglyceride 196 mg/dl (10-149); Very Low Density Lipoprotein 39 mg/dl (0-30); eGFR > 60.00
[2024-07-28 08:02] LABS: Glucose - Point of Care 193 mg/dl (70-99)
[2024-07-28] MEDS: NOVOLOG FLEXPEN-LOW RESISTANCE 1 UNITS SC ×2 (08:10→18:08)
[2024-07-28] MEDS: ELIQUIS 5 MG PO (08:10)
[2024-07-28] MEDS: LOPRESSOR 25 MG PO ×2 (08:10→20:36)
[2024-07-28] MEDS: MIRALAX 17 GRAMS PO (08:11)
[2024-07-28] MEDS: SEROQUEL 25 MG PO ×2 (08:11→15:29)
[2024-07-28] MEDS: CARDIZEM CD 240 MG PO (08:11)
[2024-07-28 08:13] LABS: Glucose 188 mg/dl (70-99)
[2024-07-28 08:21] LABS: TSH Reflex To Free T4 0.46 uIU/ml (0.47-4.68)
[2024-07-28 08:47] LABS: % Basophils 0.1 % (0-2); % Eosinophils 0.1 % (0-6); % Immature Granulocytes 5.2 % (0-0.5); % Lymphocytes 9.2 % (20.5-51.1); % Monocytes 6.9 % (1.7-9.3); % Neutrophils 78.5 % (42.2-75.2); Absolute Immature Granulocytes 0.8 10^3/uL (0-0.05); Absolute Lymphocytes 1.4 10^3/uL (1.2-3.4); Absolute Neutrophils 11.7 10^3/uL (1.4-6.5); Nucleated Red Blood Cells % 0 %
[2024-07-28 08:48] LABS: Free T4 1.25 ng/dl (0.78-2.19)
--- NOTE | 2024-07-28 10:00 | W.PN.HOSP.TC ---
Today's Communication/Plan
-
cont ABx
Assessment / Plan
Assessment / Plan
78yo F with PMHx of dementia, HLD, GERD brought from facility with worsening confusion, recently found UTI and started on nitrofurantoin. C/O abd discomfort and CT abd showed signs of bladder outlet obstruction and cystitis. Also mild rectal wall
thickening with constipation
As per - for the past 3 weeks patient became more lethargic, stopped going for a food, became incontinent of the urine.
A/P:
#Acute metabolic encephalopathy most likely 2/2 UTI
#Urinary retention with bladder outlet obstruction
#Non-obstructive nephrolithiasis
#FLORIAN with unknown Cr baseline and HAGMA
Follow Cr, if 2/2 obstruction - should improve with Dean, otherwise - nephrology
Ceftriaxone, UCx ceftriaxone sensitive K.pneumonia
Dean
Urology: cont with dean, TOV before d/c if mentation improves
IVF
MRI brain neg for stroke, MRA neg for carotid stenosis
Neurology eval: most likely dementia with episodes of delirium as patients mentation fluctuating from very lethargic to wide awake
#Rectal wall thickening with constipation
Laxatives and GI consult
As per patient - currently hesitant for colonoscopy
cont with enema and laxatives
#Irregular HR
telemetry
EKG
#Dementia, unspecified
#GERD
cont home meds
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
#DJD
#L hemidiaphragm elevation
PCP follow up and monitoring
#DM type 2
HgbA1c 8.3%
DVT ppx hep
DNR/DNI
I have spent at least 38min reviewing chart, test results, communication with consultants and direct patient care
Anticipated Discharge: > 48 hours
Subjective/Interval History
-
Date of Service: July 28, 2024
Objective Data
-
Labs:
Laboratory Results
07/28/24
06:44
WBC 15.0 H
Hgb 12.3
Hct 36.5 L
Plt Count 163
Sodium 144
Potassium 3.8
Chloride 109 H
Carbon Dioxide 23
BUN 26 H
Creatinine 0.9
Glucose 188 H
Calcium 8.4
Total Bilirubin 0.5
AST 61 H
ALT 25
Alkaline Phosphatase 101
Vital Signs:
Vital Signs
Temp Pulse Resp BP Pulse Ox
97.7 F 74 20 135/69 94
07/28/24 07:50 07/28/24 07:50 07/28/24 07:50 07/28/24 07:50 07/28/24 07:50
I&O
07/27/24 07/28/24 07/29/24
06:59 06:59 06:59
Intake Total 0 / 1929 1020 / 1020
Output Total 2175 / 2175 950 / 950
Balance -245 / -245 70 / 70
Review of Systems
-
Unable to obtain full review of systems at this time due to: Dementia
Physical Exam
-
General: Other (lethargic)
HEENT: Moist Mucous Membranes
Respiratory: Clear to Auscultation
Cardiac: Regular Rhythm
GI: Soft, Nontender and Nondistended
Genito-urinary: Dean
Neuro: Awake, Alert, Oriented and AO x 3
Psych: Calm
--- NOTE | 2024-07-28 10:58 | W.PN.CD ---
Today's Communication / Plan
-
Add Eliquis
Check Co-pay to assure she can go home on that med
update of risks/benefits/alternatives of anticoagulation
Plan elective echo
EKG in AM
Impression / Plan
-
78 yo presents with altered mental status attributed to infection and found to be in afib with RVR
New atrial fibrillation with ventricular response
- Spoke to , he does not believe that his has had AFib before
- Rate: improved on meds
- Oral Anticoagulation: None prior, spoke to and he agrees to begin
- [id number]: score at least 5 (HTN, age 75 or more, Diabetes Mellitus, female gender)
HTN, usually on dilt 240 and bisoprolol-HCTZ dose uncertain
Acute metabolic encephalopathy, in the setting of UTI, per primary and neurology, MRI pending
FLORIAN, resolved, Giles catheter in place, urology following as she has left renal calculus
Type 2 diabetes mellitus, HgbA1c 8.3%
Thoracic hemangioma T9 and T11
Dementia, memory care [facility]
Subjective:
She is not responsive
Physical Exam
Vital Signs/Labs
Vital Signs
Temp Pulse Resp BP Pulse Ox
97.7 F 74 20 135/69 94
07/28/24 07:50 07/28/24 07:50 07/28/24 07:50 07/28/24 07:50 07/28/24 07:50
07/27/24 07/28/24 07/29/24
06:59 06:59 06:59
Actual Weight 75.206 kg 75.778 kg
07/28/24 06:44
07/28/24 06:44
Magnesium 2.4 mg/dl (1.6-2.3) H 07/26/24 07:31
Triglycerides 196 mg/dl (10-149) H 07/28/24 06:44
LDL Cholesterol, Calc 18 mg/dl 07/28/24 06:44
VLDL Cholesterol, Calc 39 mg/dl (0-30) H 07/28/24 06:44
HDL Cholesterol 16 mg/dl 07/28/24 06:44
Free T4 1.25 ng/dl (0.78-2.19) 07/28/24 06:44
Physical Exam
Constitutional: No acute distress
EENT: Anicteric
Cardiovascular: Rhythm/rate is irregular and S1S2 is normal
Respiratory: Respiratory effort normal and Lungs clear to auscul.
GI: Soft and Distention absent
Neuro/Psych: Alert
Data Reviewed
-
Date of Service: July 28, 2024
[2024-07-28 11:25] VITALS: BP 140/73
[2024-07-28] MEDS: TYLENOL/FEVERALL 650 MG RECTAL (11:25)
--- NOTE | 2024-07-28 11:55 | W.PN.UPDATE ---
Update Note
Progress Note Update
Hematuria -will transition to Heparin tonight at 8pm and watch Hgb
--- NOTE | 2024-07-28 12:05 | CM ---
Addendum entered by Mildred Hester 07/28/24 12:29:
Contacted supplemental insurance available, does not cover prescriptions.
Left VM for spouse re insurance cards.
Addendum entered by Mildred Hester 07/28/24 12:11:
Will attempt to contact insurance for medication costs.
No cards provided on admission.
left VM for [facility].
Original Note:
Medication costs requested.
No insurance cards provided.
TC to [facility], patient uses [facility] [place]
[facility]: [phone]
Eliquis 5 mg BID $615.42, Xarelto 20 mg qd $589.81, Pradaxa 150 mg BID $450.39
TT to MD.
[2024-07-28 12:18] LABS: Glucose - Point of Care 223 mg/dl (70-99)
[2024-07-28] MEDS: NOVOLOG FLEXPEN-LOW RESISTANCE 2 UNITS SC (12:24)
[2024-07-28] MEDS: NSS 1000 IV ×2 (12:24)
[2024-07-28 15:30] VITALS: BP 126/67
--- NOTE | 2024-07-28 16:39 | W.PN.UPDATE ---
Addendum entered and electronically signed by Jose Cruz Sprague MD 07/28/24 17:02:
Stop quetiapine as patient too lethargic, observer with goal to restart as needed
Original Note:
Update Note
Progress Note Update
persistent fever after 72h of Abx - repeat chest R, COVID-19, do Bcx, upgrade Abx to Zosyn
[2024-07-28 16:54] LABS: Glucose - Point of Care 185 mg/dl (70-99)
[2024-07-28 17:40] LABS: Creatine Phosphokinase 238 U/L (30-135)
[2024-07-28 17:56] LABS: COVID-19 Antigen Negative (Negative)
[2024-07-28] MEDS: ZOSYN 50 IV ×2 (18:07→23:32)
[2024-07-28] MEDS: FLEET MINERAL OIL ENEMA 133 ML RECTAL (18:08)
[2024-07-28 19:52] VITALS: BP 158/83
[2024-07-28] MEDS: HEPARIN 25000 UNITS/250 ML IV (20:38)
[2024-07-28 20:42] LABS: APTT 38.5 Sec (23.4-35.0)
[2024-07-28] MEDS: TYLENOL 650 MG PO (20:58)
[2024-07-28 21:35] LABS: Glucose - Point of Care 191 mg/dl (70-99)
[2024-07-28 23:37] VITALS: BP 121/57
[2024-07-29] MEDS: NSS 1000 IV (02:47)
[2024-07-29] MEDS: FLUSH (NSS) 1 FLUSH IV ×2 (02:48→02:56)
[2024-07-29 03:03] LABS: APTT 81.2 Sec (23.4-35.0)
[2024-07-29 03:53] VITALS: BP 150/85
[2024-07-29] MEDS: LOPRESSOR 5 MG IV (04:33)
--- NOTE | 2024-07-29 04:44 | PTCARENOTE ---
hr 115's-130's consistently. kennel attendant notified. 5mg Lopressor ordered and admin. will monitor.
[2024-07-29] MEDS: ZOSYN 50 IV ×4 (05:03→23:28)
[2024-07-29] MEDS: TYLENOL/FEVERALL 650 MG RECTAL ×2 (05:25→19:35)
[2024-07-29 07:35] LABS: Glucose - Point of Care 231 mg/dl (70-99)
[2024-07-29 07:57] VITALS: BP 169/81
[2024-07-29 08:46] LABS: Hematocrit 32.7 % (37.0-47.0); Mean Corp Hgb Conc. 33.6 g/dL (33.0-37.0); Mean Corpuscular Hgb 30.6 pg (27.0-31.0); Mean Corpuscular Volume 91.1 fL (81.0-99.0); Mean Platelet Volume 10.9 fL (7.4-10.4); Platelet Count 135 10^3/uL (130-400); Red Blood Cell Count 3.59 10^6/uL (4.20-5.40); Red Cell Dist. Width 13.7 % (11.5-14.5); White Blood Cell Count 17.8 10^3/uL (4.8-10.8)
[2024-07-29] MEDS: CARDIZEM CD 240 MG PO (08:48)
[2024-07-29] MEDS: MIRALAX 17 GRAMS PO (08:48)
[2024-07-29 08:49] LABS: APTT 81.1 Sec (23.4-35.0)
[2024-07-29] MEDS: NOVOLOG FLEXPEN-LOW RESISTANCE 2 UNITS SC (08:49)
[2024-07-29] MEDS: LOPRESSOR 25 MG PO (08:49)
[2024-07-29 09:03] LABS: ALT (SGPT) 39 U/L (0-35); AST (SGOT) 96 U/L (14-36); Albumin 2.5 g/dl (3.5-5.0); Alkaline Phosphatase 110 U/L (38-126); Blood Urea Nitrogen 27 mg/dl (7-17); Calcium 8.2 mg/dl (8.4-10.2); Carbon Dioxide 25 mmol/L (22-30); Chloride 114 mmol/L (98-107); Glucose 235 mg/dl (70-99); Potassium 3.8 mmol/L (3.5-5.1); Sodium 148 mmol/L (135-145); Total Bilirubin 0.7 mg/dl (0.2-1.3); Total Protein 5.6 g/dl (6.3-8.2); eGFR 56.95
[2024-07-29 09:25] LABS: % Basophils 0.5 % (0-2); % Eosinophils 0.1 % (0-6); % Immature Granulocytes 8.7 % (0-0.5); % Lymphocytes 7.2 % (20.5-51.1); % Monocytes 3.8 % (1.7-9.3); % Neutrophils 79.7 % (42.2-75.2); Absolute Basophils 0.1 10^3/uL (0-0.2); Absolute Immature Granulocytes 1.6 10^3/uL (0-0.05); Absolute Lymphocytes 1.3 10^3/uL (1.2-3.4); Absolute Monocytes 0.7 10^3/uL (0.1-0.6); Absolute Neutrophils 14.2 10^3/uL (1.4-6.5); Nucleated Red Blood Cells % 0 %
--- NOTE | 2024-07-29 10:00 | W.PN.HOSP.TC ---
Today's Communication/Plan
-
BMP in AM
cont Heparin drip for one more day, if Hgb remains stable and no more hematuria- switch to Eliquis
cont Zosyn following fever curve (improving) and WBC - if worsening leukocytosis in the next 24h, will plan to involve ID
Assessment / Plan
Assessment / Plan
78yo F with PMHx of dementia, HLD, GERD brought from facility with worsening confusion, recently found UTI and started on nitrofurantoin. C/O abd discomfort and CT abd showed signs of bladder outlet obstruction and cystitis. Also mild rectal wall
thickening with constipation. Later developed afib with RVR. DUe to persistent fevers and leukocytosis - switched to Zosyn on 07/28/24
As per - for the past 3 weeks patient became more lethargic, stopped going for a food, became incontinent of the urine.
A/P:
#Acute metabolic encephalopathy most likely 2/2 UTI
#Urinary retention with bladder outlet obstruction
#Non-obstructive nephrolithiasis
#FLORIAN with unknown Cr baseline and HAGMA
Follow Cr, if 2/2 obstruction - should improve with Dean, otherwise - nephrology
Ceftriaxone, UCx ceftriaxone sensitive K.pneumonia
Dean
Urology: cont with dean, TOV before d/c if mentation improves
IVF
MRI brain neg for stroke, MRA neg for carotid stenosis
Neurology eval: most likely dementia with episodes of delirium as patients mentation fluctuating from very lethargic to wide awake
#Rectal wall thickening with constipation
Laxatives and GI consult
As per patient - currently hesitant for colonoscopy
cont with enema and laxatives
#COnstipation
s/p enema
XR abd on 07/29/24 - no significant stool burden
#Hypernatremia
needs supervised oral fluid intake
start 0.45% saline and follow
#NEw onset Afib
Due to episode of hematuria - on heparin drip pending stable Hgb
#Dementia, unspecified
#GERD
cont home meds
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
#DJD
#L hemidiaphragm elevation
PCP follow up and monitoring
#DM type 2
HgbA1c 8.3%
DVT ppx hep
DNR/DNI
I have spent at least 38min reviewing chart, test results, communication with consultants and direct patient care
Anticipated Discharge: > 48 hours
Subjective/Interval History
-
Date of Service: July 29, 2024
Objective Data
-
Labs:
Laboratory Results
07/29/24 07/29/24
02:41 08:25
WBC 17.8 H
Hgb 11.0 L
Hct 32.7 L
Plt Count 135
APTT 81.2 H 81.1 H
Sodium 148 H
Potassium 3.8
Chloride 114 H
Carbon Dioxide 25
BUN 27 H
Creatinine 1.0
Glucose 235 H
Calcium 8.2 L
Total Bilirubin 0.7
AST 96 H
ALT 39 H
Alkaline Phosphatase 110
Vital Signs:
Vital Signs
Temp Pulse Resp BP Pulse Ox
98.7 F 98 20 169/81 93
07/29/24 07:57 07/29/24 07:57 07/29/24 07:57 07/29/24 07:57 07/29/24 07:57
I&O
07/28/24 07/29/24 07/30/24
06:59 06:59 06:59
Intake Total 1020 / 1020 958 / 958
Output Total 950 / 950 900 / 900
Balance 70 / 70 58 / 58
Review of Systems
-
Unable to obtain full review of systems at this time due to: Dementia
Physical Exam
-
General: No Apparent Distress
HEENT: Normocephalic
Respiratory: Clear to Auscultation
Cardiac: Irregular Rhythm
GI: Soft, Nondistended and Tender
Musculoskeletal: No Clubbing, No Cyanosis and No Edema
Neuro: Awake and Alert
Psych: Calm and Apparent Dementia
[2024-07-29] MEDS: 0.45%NACL 1000 IV ×2 (10:07→23:28)
[2024-07-29 11:25] VITALS: BP 130/70
[2024-07-29 11:37] LABS: Glucose - Point of Care 308 mg/dl (70-99)
[2024-07-29] MEDS: NOVOLOG FLEXPEN-LOW RESISTANCE 4 UNITS SC (12:06)
--- NOTE | 2024-07-29 14:39 | W.PN.CD ---
Today's Communication / Plan
-
Continue Dilt ER 240 daily
Increase metoprolol ER 25 bid => 50 BID for more rate control
Anticoagulation
- On IV heparin
- When OK then Eliquis 5 BID
- I spoke too and he believes his insurance plan is a good plan and he will see what the [facility] finds his real cost for ELiquis will be.
- If Eliquis is too expensive the generic Pradaxa with a GoodRx coupon today is now $57.77 for a 30 day supply or $164.31 for a 90 tday supply at [facility] or [facility].
Impression / Plan
-
78 yo presents with altered mental status attributed to infection and found to be in afib with RVR
Suspected UTI
- On ATBs
- Giles in place
New atrial fibrillation with ventricular response
- Spoke to , he does not believe that his has had AFib before
- Rate: improved on meds, but need more rate control
- Oral Anticoagulation: None prior, spoke to and he agrees to begin. See today's communication
- [id number]: score at least 5 (HTN, age 75 or more, Diabetes Mellitus, female gender)
HTN, usually on dilt 240 and bisoprolol-HCTZ dose uncertain
Acute metabolic encephalopathy, in the setting of UTI, per primary and neurology, MRI pending
FLORIAN, resolved, Giles catheter in place, urology following as she has left renal calculus
Type 2 diabetes mellitus, HgbA1c 8.3%
Thoracic hemangioma T9 and T11
Dementia, memory care [facility]
Subjective:
She is not responsive
Physical Exam
Vital Signs/Labs
Vital Signs
Temp Pulse Resp BP Pulse Ox
98.2 F 117 20 130/70 97
07/29/24 11:25 07/29/24 11:25 07/29/24 11:25 07/29/24 11:25 07/29/24 11:25
07/28/24 07/29/24 07/30/24
06:59 06:59 06:59
Actual Weight 75.778 kg 75.977 kg
07/29/24 08:25
07/29/24 08:25
APTT 81.1 Sec (23.4-35.0) H 07/29/24 08:25
Magnesium 2.4 mg/dl (1.6-2.3) H 07/26/24 07:31
Triglycerides 196 mg/dl (10-149) H 07/28/24 06:44
LDL Cholesterol, Calc 18 mg/dl 07/28/24 06:44
VLDL Cholesterol, Calc 39 mg/dl (0-30) H 07/28/24 06:44
HDL Cholesterol 16 mg/dl 07/28/24 06:44
Free T4 1.25 ng/dl (0.78-2.19) 07/28/24 06:44
Physical Exam
Constitutional: No acute distress
Cardiovascular: Rhythm/rate is irregular and S1S2 is normal
Respiratory: Respiratory effort normal and Lungs clear to auscul.
GI: Soft
Data Reviewed
-
Date of Service: July 29, 2024
[2024-07-29] MEDS: LOPRESSOR 50 MG PO ×2 (15:09→19:29)
[2024-07-29 15:37] VITALS: BP 134/74
[2024-07-29 16:42] LABS: Glucose - Point of Care 247 mg/dl (70-99)
[2024-07-29] MEDS: NOVOLOG FLEXPEN-LOW RESISTANCE 3 UNITS SC (16:59)
[2024-07-29 19:30] VITALS: BP 150/86
[2024-07-29 21:54] LABS: Glucose - Point of Care 221 mg/dl (70-99)
[2024-07-29] MEDS: HEPARIN 25000 UNITS/250 ML IV (23:26)
[2024-07-29 23:49] VITALS: BP 110/58
[2024-07-30] VITALS (8 sets, daily range): BP systolic 93–145; BP diastolic 62–100; PULSE 110–145
[2024-07-30] MEDS: FLUSH (NSS) IV ×2 (02:01)
[2024-07-30] MEDS: ZOSYN 50 IV ×2 (05:35→12:20)
[2024-07-30 06:17] LABS: Hematocrit 31.8 % (37.0-47.0); Hemoglobin 10.5 g/dL (12.0-16.0); Mean Corpuscular Hgb 29.9 pg (27.0-31.0); Mean Corpuscular Volume 90.6 fL (81.0-99.0); Mean Platelet Volume 11.4 fL (7.4-10.4); Platelet Count 132 10^3/uL (130-400); Red Blood Cell Count 3.51 10^6/uL (4.20-5.40); Red Cell Dist. Width 14.1 % (11.5-14.5); White Blood Cell Count 22.4 10^3/uL (4.8-10.8)
[2024-07-30 06:25] LABS: APTT 63.3 Sec (23.4-35.0)
[2024-07-30] MEDS: CARDIZEM CD 240 MG PO (06:30)
[2024-07-30] MEDS: LOPRESSOR 50 MG PO (06:30)
[2024-07-30 06:41] LABS: ALT (SGPT) 52 U/L (0-35); AST (SGOT) 114 U/L (14-36); Albumin 2.4 g/dl (3.5-5.0); Alkaline Phosphatase 135 U/L (38-126); Blood Urea Nitrogen 22 mg/dl (7-17); Calcium 7.8 mg/dl (8.4-10.2); Carbon Dioxide 24 mmol/L (22-30); Chloride 111 mmol/L (98-107); Glucose 227 mg/dl (70-99); Potassium 3.4 mmol/L (3.5-5.1); Sodium 148 mmol/L (135-145); Total Bilirubin 0.7 mg/dl (0.2-1.3); Total Protein 5.2 g/dl (6.3-8.2); eGFR > 60.00
[2024-07-30 07:15] LABS: Absolute Neutrophils -Man Diff 16.8 10^3/uL (1.4-6.5); Band Neutrophils 10 % (0-3); Lymphocytes 11 % (20-51); Metamyelocytes 7 % (-); Monocytes 6 % (2-9); Myelocytes 1 % (-); Platelets Checked Yes; Segmented Neutrophils 65 % (42-75)
[2024-07-30 07:16] LABS: Normal RBC Morphology Yes; Total Cells Counted 100
[2024-07-30 07:41] LABS: Glucose - Point of Care 238 mg/dl (70-99)
--- NOTE | 2024-07-30 08:43 | W.PN.HOSP.TC ---
Today's Communication/Plan
-
see bold
Assessment / Plan
Assessment / Plan
78yo F with PMHx of dementia, HLD, GERD brought from facility with worsening confusion, recently found UTI and started on nitrofurantoin. C/O abd discomfort and CT abd showed signs of bladder outlet obstruction and cystitis. Also mild rectal wall
thickening with constipation. Later developed afib with RVR. DUe to persistent fevers and leukocytosis - switched to Zosyn on 07/28/24
As per - for the past 3 weeks patient became more lethargic, stopped going for a food, became incontinent of the urine.
A/P:
#Acute metabolic encephalopathy most likely 2/2 UTI
#Urinary retention with bladder outlet obstruction
#Non-obstructive nephrolithiasis
#FLORIAN with unknown Cr baseline and HAGMA
Urology: cont with dean, TOV before d/c if mentation improves
MRI brain neg for stroke, MRA neg for carotid stenosis
Neurology eval: most likely dementia with episodes of delirium as patients mentation fluctuating from very lethargic to wide awake
Urine culture with Klebsiella, leukocytosis worsening despite IV zosyn, c/s ID
#Rectal wall thickening with constipation
As per patient - currently hesitant for colonoscopy
Status post enema
Appreciate GI input, continue laxatives
XR abd on 07/29/24 - no significant stool burden
#Hypernatremia
Needs supervised oral fluid intake
No improvement on half-normal, change to D5W
#New onset Afib
Due to episode of hematuria - on heparin drip pending stable Hgb
Appreciate cardiology input, continue Lopressor for rate control
#Hematuria
Resolved
#Dementia, unspecified
#GERD
Continue Pepcid, Seroquel
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
#DJD
#L hemidiaphragm elevation
PCP follow up and monitoring
#DM type 2
HgbA1c 8.3%
Continue SST, carb controlled diet
DVT prophylaxis�heparin drip
DNR
Total time spent to see the patient on the floor, examine the patient, review data and lab results, discuss treatment plan with patient, nursing staff around 53 minutes.
Physical Exam
General: No acute distress
HEENT: Normocephalic, Atraumatic, EOMI, MMM
Respiratory: Clear to Auscultation bilaterally
Cardiac: Normal S1/S2, irregularly irregular
GI: Soft, Nontender, Nondistended, Normal Bowel Sounds
Extremities: No Clubbing, Cyanosis, or Edema
Neuro: Pleasantly confused
Psych: Calm, Cooperative
Anticipated Discharge: 24 - 48 hours
Subjective/Interval History
-
Date of Service: July 30, 2024
Fever resolved. Denies chest pain, denies shortness of breath. No vomiting.
Objective Data
-
Labs:
Laboratory Results
07/30/24 07/30/24
05:54 13:00
WBC 22.4 H
Hgb 10.5 L
Hct 31.8 L
Plt Count 132
APTT 63.3 H Pending
Sodium 148 H
Potassium 3.4 L
Chloride 111 H
Carbon Dioxide 24
BUN 22 H
Creatinine 0.9
Glucose 227 H
Calcium 7.8 L
Total Bilirubin 0.7
AST 114 H
ALT 52 H
Alkaline Phosphatase 135 H
Vital Signs:
Vital Signs
Temp Pulse Resp BP Pulse Ox
99.7 F 99 16 109/63 92
07/30/24 03:32 07/30/24 03:32 07/30/24 03:32 07/30/24 06:30 07/30/24 03:32
I&O
07/29/24 07/30/24 07/31/24
06:59 06:59 06:59
Intake Total 958 / 958 2258 / 2258
Output Total 900 / 900 1000 / 1000
Balance 58 / 58 1258 / 1258
[2024-07-30] MEDS: NOVOLOG FLEXPEN-LOW RESISTANCE 2 UNITS SC (09:50)
[2024-07-30] MEDS: MIRALAX PO ×2 (09:50→09:54)
--- NOTE | 2024-07-30 10:33 | W.PN.CD ---
Addendum entered and electronically signed by Horace Nayak MD 07/30/24 11:30:
78 yo female with PMH of dementia (memory care unit) admitted UTI and new diagnosis A fib with RVR. She is asymptomatic. Exam with irregular rhythm, no murmurs, no edema. Tele: A fib 100-110s.
Increase metoprolol tartrate to 100mg bid for rate control. Continue diltiazem 240mg daily. Check echo.
Currently on heparin drip. With plans to transition to eliquis once Hgb stable.
Original Note:
Today's Communication / Plan
-
continue Diltiazem and Lopressor.
continue IV Heparin, switch to Eliquis 5mg BID when safe.
Impression / Plan
-
78 yo female presents with altered mental status attributed to infection and found to be in Afib with RVR.
New atrial fibrillation with ventricular response
- per , he does not believe that his has had AFib before.
- Rate: improved on meds as Lopressor was increased yesterday.
- Oral Anticoagulation: None prior, agrees to begin, she is now on IV Heparin.
- plan for Eliquis 5mg BID when hgb is stable.
- [id number]: score at least 5 (HTN, age 75 or more, Diabetes Mellitus, female gender).
Suspected UTI - per hospitalist.
- on antibiotics.
- Giles in place.
HTN - stable on Diltiazem and Lopressor.
- continue and monitor.
- usually on bisoprolol-HCTZ dose uncertain
Acute metabolic encephalopathy - in the setting of UTI.
- per primary and neurology.
- chronic dementia, lives in memory care at [facility].
FLORIAN - resolved.
- Giles catheter in place.
- urology following as she has left renal calculus and mild hematuria.
Type 2 diabetes mellitus - HgbA1c 8.3%.
- per hospitalist.
Dementia - chronic.
- lives in memory care [facility].
Subjective:
pleasantly demented.
Physical Exam
Vital Signs/Labs
Vital Signs
Temp Pulse Resp BP Pulse Ox
98.4 F 125 20 125/100 96
07/30/24 07:21 07/30/24 07:21 07/30/24 07:21 07/30/24 07:21 07/30/24 07:21
07/29/24 07/30/24 07/31/24
06:59 06:59 06:59
Actual Weight 167 lb 8 oz 172 lb 6.424 oz
07/30/24 05:54
07/30/24 05:54
APTT 63.3 Sec (23.4-35.0) H 07/30/24 05:54
Magnesium 2.4 mg/dl (1.6-2.3) H 07/26/24 07:31
Triglycerides 196 mg/dl (10-149) H 07/28/24 06:44
LDL Cholesterol, Calc 18 mg/dl 07/28/24 06:44
VLDL Cholesterol, Calc 39 mg/dl (0-30) H 07/28/24 06:44
HDL Cholesterol 16 mg/dl 07/28/24 06:44
Free T4 1.25 ng/dl (0.78-2.19) 07/28/24 06:44
Physical Exam
Constitutional: No acute distress and Comfortable
EENT: Anicteric
Cardiovascular: Rhythm/rate is irregular
Respiratory: Respiratory effort normal
GI: Soft, Non tender and Normal bowel sounds
Neuro/Psych: Alert (not oriented)
Other: Skin (warm, dry)
Data Reviewed
-
Date of Service: July 30, 2024
Medical Decision Making: Reviewed Test Results
EKG: Tracing Personally Visualized and interpreted
Echo: Report Reviewed by me
X-Ray/CT/US/MRI/NUC/PET: Report Reviewed by me
Labs: Labs Reviewed by me
Old Records: Reviewed
--- NOTE | 2024-07-30 10:49 | CON.ID ---
Addendum entered and electronically signed by Mariana Corona MD 07/30/24 14:54:
I personally performed a history and physical exam of the patient and discussed management with the resident. I reviewed the resident's note and agree with the documented findings and plan of care HPI/CC.
78 year old female with dementia HTN presented from memory care with change in mental status, new onset Afib, Klebsiella UTI, constipation with rectal thickening.
Pt on appropriate abx for the Klebsiella recovered from urine cx. However, pt remains febrile and leukocytosis trending up.
Repeat bcx neg to date. CXR + atelectasis. AXR minimal stool.
Exam today: Chest coarse BS right base. Abd: + diffuse tenderness abdomen, worse in upper abd.
A/P
# Fever
# Leukocytosis with bandemia, worse
# Diffuse abd pain
# New elevated LFT's
# Klebsiella UTI
- Ordered CT a/p with IV and oral contrast
- Replace Zosyn with cefepime and metronidazole for now.
- Trend temps/wbc
Discussed with Dr. Blackman.
Original Note:
Consultation
-
Date/Time Consultation Requested: 07-30-24
Date/Time Consultation Performed: 07-30-24
Requesting Provider: Dr. Blackman
Performing Provider: Dr. Corona
Reason for Consultation: up-trending leukocytosis on Zosyn for cUTI
Chief Complaint / Past History
Chief Complaint
Altered mental status and fevers
History of Present Illness
Maggie Wilson, age 78, came to the emergency on 07-25-24 with a change in her metal status. She came from [facility], in their memory care unit. She was diagnosed outpatient with a UTI (cultures grew gram-negative rods, per ED documentation) a
day before her admission, and she was started on nitrofurantoin on 07-24-24. On arrival in the ED, she was found to be globally weak and confused, and her blood work was notable for an FLORIAN with creatinine of 2.8. Vitals and blood count were
unremarkable in the ED. CT AP noted 'distention along the entire course of the ureters with minimal intrarenal collecting system, possibly reflecting back pressure from bladder'. She was given 1 dose of piperacillin-tazobactam in the ED, before
being switched to ceftriaxone by the admitting team. Giles was placed, the next day in the morning, on 07-26-24; she spiked a fever with a T-max of 102.5 F on that day. Urine culture came back positive for Klebsiella pneumoniae, and blood cultures
*2 had no growth.
On 07-27-24, she developed new-onset atrial fibrillation. Head CT, brain MR, head and neck MRA were unremarkable. The next day, on 07-28-24, she spiked a fever again, while still on ceftriaxone, and blood count showed new leukocytosis. Ceftriaxone
was switched up to piperacillin-tazobactam on 07-28-24. She was found to be febrile once more, on 07-29-24 with a temperature of 101.5 F, and her white blood cell count continued to up-trend. 22.4 today with a left shift. She continues to have a
Giles, and her creatinine has down-trended to 0.9 today.
Past History
Past Medical History: Other (Essential hypertension; Dementia; Gastroesophageal reflux disease; Thoracic hemangioma; Degenerative disc disease; Type II diabetes mellitus; Atrial fibrillation; Hyperlipidemia)
Past Surgical History: None
Allergy History:
No Known Allergies Allergy (Unverified 07/25/24 19:47)
Medications Reviewed: Yes
Social History
Tobacco: Other (unable to obtain at this time due to dementia)
Family History
Family History: Not Pertinent
Review of Systems
Review of Systems
General: Negative Fever or Chills
Cardiovascular: Negative Chest Pain or Palpitations
Respiratory: Negative Dyspnea or Cough
Genital / Urological: Negative Dysuria or Hematuria
Neurological: Negative Headache or Dizziness
Vital Signs
Temp Pulse Resp BP Pulse Ox
98.4 F 125 20 125/100 96
07/30/24 07:21 07/30/24 07:21 07/30/24 07:21 07/30/24 07:21 07/30/24 07:21
Physical Exam
Physical Exam
Constitutional: No Acute Distress and Comfortable
Head: Normocephalic
Eyes: Pupils Equal, Pupils Round and Sclera Anicteric
Pharynx: Benign
Oral: Poor Dentition
Cardiovascular: Regular Rate and S1/S2
Pulmonary: Clear and Non Labored
Gastrointestinal: Soft, Tender (diffusely), Non Distended, Decreased Bowel Sounds, No Rebound and No Guarding
Genito-Urinary: Giles
Extremities: Negative Edema, Clubbing or Cyanosis
Wound: None
Neurological: Awake; Negative Alert or Oriented
Psychological: Confused
Lab / Diagnostic Study Results
07/30/24 05:54
07/30/24 05:54
Abs Immat Gran (auto) 1.6 10^3/uL (0-0.05) H 07/29/24 08:25
Absolute Neuts (auto) 14.2 10^3/uL (1.4-6.5) H 07/29/24 08:25
Absolute Lymphs (auto) 1.3 10^3/uL (1.2-3.4) 07/29/24 08:25
Absolute Monos (auto) 0.7 10^3/uL (0.1-0.6) H 07/29/24 08:25
Absolute Basos (auto) 0.1 10^3/uL (0-0.2) 07/29/24 08:25
Total Counted 100 07/30/24 05:54
Immature Gran % 8.7 % (0-0.5) H 07/29/24 08:25
Neutrophils % 79.7 % (42.2-75.2) H 07/29/24 08:25
Lymphocytes % 7.2 % (20.5-51.1) L 07/29/24 08:25
Monocytes % 3.8 % (1.7-9.3) 07/29/24 08:25
Eosinophils % 0.1 % (0-6) 07/29/24 08:25
Basophils % 0.5 % (0-2) 07/29/24 08:25
Abs Neuts (Manual) 16.8 10^3/uL (1.4-6.5) H 07/30/24 05:54
Segmented Neutrophils 65 % (42-75) 07/30/24 05:54
Band Neutrophils 10 % (0-3) H 07/30/24 05:54
Lymphocytes (Manual) 11 % (20-51) L 07/30/24 05:54
Ur Squamous Epith Cells 0-2 /LPF (Few) 07/25/24 17:47
Microbiology Results
Micro:
07/28/24 20:23 Blood Culture - Preliminary
Blood/Venous No Growth in 24 hours- Final report to follow
07/28/24 20:23 Blood Culture - Preliminary
Blood/Venous No Growth in 24 hours- Final report to follow
07/25/24 17:47 Urine Culture - Final
Urine Klebsiella pneumoniae
07/26/24 06:31 MRSA Screen - Final
Nose No Methicillin Resistant Staphylococcus aureus isolated.
Assessment / Plan
Acute complicated urinary tract infection
Persistent fevers
- Afebrile, normal blood cell count and an FLORIAN on 07-25-24.
- CT AP showed urinary retention; Giles placed on 07-26-24.
- Spiked a fever T-max of 102.5 F on 07-26-24.
- Status-post 1 dose of piperacillin-tazobactam in the ED
- Was switched to ceftriaxone on admission, which was switched (after 4 days) back to piperacillin-tazobactam on 07-28-24 after she developed leukocytosis and spiked a fever again.
- Also noted to have atrial fibrillation on 07-28-24; neuro and neurovascular imaging unremarkable.
- Etiology of fevers while on ceftriaxone and then again once when on piperacillin-tazobactam unclear at this time.
- Unclear why the leukocytosis have progressed.
- She did have generalized abdominal tenderness on palpation; will check a CT AP with IV and oral contrast.
- Switch piperacillin-tazobactam (3 days) to cefepime and metronidazole.
Acute kidney injury, resolved
Acute urinary retention, Giles status since 07-26-24
Acute metabolic encephalopathy likely secondary to UTI, resolved
Conditions known prior to admission
Dementia
Atrial fibrillation
Essential hypertension
Gastroesophageal reflux disease
Thoracic hemangioma
Degenerative disc disease
Type II diabetes mellitus
Hyperlipidemia
--- NOTE | 2024-07-30 11:32 | CM ---
Chart reviewed and per updated physical therapy notes recommendation is for skilled placement, options reviewed and patient's spouse has selected [facility] referral sent to the [facility] and machine adjuster leader case trim will need to update progress notes.
Plan; Skilled placement at the [facility] when stable.
--- NOTE | 2024-07-30 11:33 | EEG.RPT ---
Electroencephalogram Report
Recording
Date of EE07/30/24
Type of EEG: Routine
Length of EEG recordin-minute
Done with Video Recording: Yes
Patient Status: Inpatient
Recording Conditions: Awake and Drowsy
Hyperventilation Performed: No
Photic Stimulation Performed: Yes
Report
LESS THAN 1 HOUR EEG REPORT
LESS THAN 1 HOUR EEG INTERPRETATION:
Mildly abnormal EEG for age due to episodic diffuse bihemispheric slowing
CLINICAL CORRELATION:
This study was suggestive of diffuse cortical dysfunction without focal abnormality. No seizures were recorded.
Clinical correlation is advised.
METHODS:
A 21 channel digitized electroencephalogram (EEG) was performed in the clinical neurophysiology laboratory. The 10/20 international system of electrode placement was used with ECG and lateral/vertical eye movements recorded. Persyst QEEG monitoring
was performed.
QUALITY OF STUDY:
Fair due to muscle artifact
ELECTROENCEPHALOGRAPHER IMPRESSION(S):
Background
There was a medium amplitude fairly organized anterior-posterior voltage gradient of alpha maximum frequency. Bursts of generalized slowing lasting 1 to 2 seconds anteriorly dominant were noted intermittently
There were no significant asymmetries of background activity noted.
Sleep
Drowsiness present
Photic Stimulation
Failed to activate the record.
ECG
Mildly irregular
[2024-07-30 12:13] LABS: Glucose - Point of Care 263 mg/dl (70-99)
[2024-07-30] MEDS: NOVOLOG FLEXPEN-LOW RESISTANCE 3 UNITS SC (12:21)
[2024-07-30] MEDS: OMNIPAQUE 50 ML PO (12:51)
[2024-07-30] MEDS: MAXIPIME 1000 MG IV ×2 (13:30→20:47)
[2024-07-30] MEDS: STERILE WATER FOR INJECTION 10 ML IV ×2 (13:30→20:47)
[2024-07-30 13:45] LABS: APTT 88.5 Sec (23.4-35.0)
[2024-07-30] MEDS: KCL 10 MEQ PO (15:48)
[2024-07-30] MEDS: D5W 1000 IV (15:48)
[2024-07-30] MEDS: FLAGYL 500 MG PO ×2 (15:48→20:47)
[2024-07-30] MEDS: 0.45%NACL IV (16:55)
[2024-07-30 17:53] LABS: Glucose - Point of Care 197 mg/dl (70-99)
[2024-07-30] MEDS: NOVOLOG FLEXPEN-LOW RESISTANCE 1 UNITS SC (18:13)
[2024-07-30] MEDS: LOPRESSOR 100 MG PO (20:48)
[2024-07-30] MEDS: TYLENOL/FEVERALL 650 MG RECTAL (20:48)
[2024-07-30 20:50] LABS: APTT 138.2 Sec (23.4-35.0)
[2024-07-30 20:59] LABS: Glucose - Point of Care 252 mg/dl (70-99)
--- NOTE | 2024-07-30 21:26 | W.PN.UPDATE ---
Addendum entered and electronically signed by COLIN Batista 07/31/24 04:05:
Patient had another large bowel movement with black stool, vital signs within normal limits. Will monitor h&h.
Original Note:
Update Note
Progress Note Update
Patient has black color bowel movement, positive heme test. Will place heparin on hold, add IV Protonix daily, and GI consult placed.
[2024-07-30] MEDS: NSS (PRESERVATIVE FREE) 10 ML IV (21:45)
[2024-07-30] MEDS: PROTONIX IV 40 MG IV (21:45)
--- NOTE | 2024-07-30 21:57 | PTCARENOTE ---
bm dark in color. heme positive. [facility] administrator aware. hep gtt on hold. protonix given. will monitor.
[2024-07-31] MEDS: FLUSH (NSS) IV ×4 (00:12→21:53)
[2024-07-31 03:23] VITALS: BP 133/76
--- NOTE | 2024-07-31 04:27 | PTCARENOTE ---
large black bm. vss. iv team attempted am labs. unsuccessful. solid center winder aware. will monitor.
[2024-07-31 04:33] VITALS: BMI 31.4
[2024-07-31] MEDS: MAXIPIME 1000 MG IV (05:59)
[2024-07-31] MEDS: STERILE WATER FOR INJECTION 10 ML IV ×2 (05:59→14:49)
[2024-07-31 07:25] VITALS: BP 102/78
[2024-07-31 07:34] LABS: Glucose - Point of Care 266 mg/dl (70-99)
[2024-07-31] MEDS: CARDIZEM CD 240 MG PO (07:50)
[2024-07-31] MEDS: FLAGYL 500 MG PO (07:51)
[2024-07-31] MEDS: MIRALAX PO (07:51)
[2024-07-31] MEDS: PROTONIX IV 40 MG IV (07:51)
[2024-07-31] MEDS: LOPRESSOR 100 MG PO ×2 (07:51→19:39)
[2024-07-31] MEDS: NSS (PRESERVATIVE FREE) 10 ML IV (07:52)
[2024-07-31 08:16] LABS: Hematocrit 29.9 % (37.0-47.0); Hemoglobin 9.7 g/dL (12.0-16.0); Mean Corp Hgb Conc. 32.4 g/dL (33.0-37.0); Mean Corpuscular Hgb 29.7 pg (27.0-31.0); Mean Corpuscular Volume 91.4 fL (81.0-99.0); Mean Platelet Volume 11.5 fL (7.4-10.4); Platelet Count 127 10^3/uL (130-400); Red Blood Cell Count 3.27 10^6/uL (4.20-5.40); Red Cell Dist. Width 14.2 % (11.5-14.5); White Blood Cell Count 20.3 10^3/uL (4.8-10.8)
[2024-07-31 08:35] LABS: ALT (SGPT) 56 U/L (0-35); AST (SGOT) 83 U/L (14-36); Albumin 2.3 g/dl (3.5-5.0); Alkaline Phosphatase 137 U/L (38-126); Blood Urea Nitrogen 19 mg/dl (7-17); Calcium 7.4 mg/dl (8.4-10.2); Carbon Dioxide 23 mmol/L (22-30); Chloride 106 mmol/L (98-107); Estimated Creatinine Clearance 62 ml/min; Glucose 262 mg/dl (70-99); Potassium 3.6 mmol/L (3.5-5.1); Sodium 144 mmol/L (135-145); Total Bilirubin 0.6 mg/dl (0.2-1.3); Total Protein 5.1 g/dl (6.3-8.2); eGFR > 60.00
--- NOTE | 2024-07-31 08:46 | W.PN.CD ---
Addendum entered and electronically signed by Jet Little MD 07/31/24 17:21:
Given hemoglobin drop on heparin and defer for colonoscopy likely elevated bleeding risk with chronic AC and will need to discuss risk/benefits, with likely deferred AC going fwd.
Original Note:
Today's Communication / Plan
-
Cont dilt 240 and Metoprolol 100 bid
HRs appear to be coming down after being elevated yesterday
If they remain elevated throughout afternoon will consider increasing dilt vs starting digoxin based on BP
Impression / Plan
-
78 yo female presents with altered mental status attributed to infection and found to be in Afib with RVR.
New atrial fibrillation with rapid ventricular response
- per , he does not believe that his has had AFib before.
- Rate controlled: Dilt 240 mg and Metoprolol tartrate 100 mg bid
- Oral Anticoagulation: None prior, agrees to begin, she is now on IV Heparin, concern for possible GI bleed?
- plan for Eliquis 5mg BID when hgb is stable.
- [id number]: score at least 5 (HTN, age 75 or more, Diabetes Mellitus, female gender).
Suspected UTI - per hospitalist.
- on antibiotics.
- Giles in place.
GI bleed
- GI consulted
HTN - stable on Diltiazem and Lopressor.
- continue and monitor.
- usually on bisoprolol-HCTZ dose uncertain
- difficult to increase this AM BP borderline at 102/78
Acute metabolic encephalopathy - in the setting of UTI.
- per primary and neurology.
- chronic dementia, lives in [facility] at [facility].
FLORIAN - resolved.
- Giles catheter in place.
- urology following as she has left renal calculus and mild hematuria.
Type 2 diabetes mellitus - HgbA1c 8.3%.
- per hospitalist.
Dementia - chronic.
- lives in memory care [facility].
Subjective:
pleasantly demented with no new complaints.
Physical Exam
Vital Signs/Labs
Vital Signs
Temp Pulse Resp BP Pulse Ox
98.2 F 128 16 102/78 95
07/31/24 03:23 07/31/24 07:51 07/31/24 03:23 07/31/24 07:51 07/31/24 03:23
07/30/24 07/31/24 08/01/24
06:59 06:59 06:59
Actual Weight 172 lb 6.424 oz 171 lb 6 oz
07/31/24 07:18
APTT 138.2 Sec (23.4-35.0) H 07/30/24 20:28
Magnesium 2.4 mg/dl (1.6-2.3) H 07/26/24 07:31
Triglycerides 196 mg/dl (10-149) H 07/28/24 06:44
LDL Cholesterol, Calc 18 mg/dl 07/28/24 06:44
VLDL Cholesterol, Calc 39 mg/dl (0-30) H 07/28/24 06:44
HDL Cholesterol 16 mg/dl 07/28/24 06:44
Free T4 1.25 ng/dl (0.78-2.19) 07/28/24 06:44
Physical Exam
Constitutional: No acute distress
EENT: Anicteric
Cardiovascular: Rhythm/rate is irregular
Respiratory: Respiratory effort normal and Lungs clear to auscul.
GI: Soft
Neuro/Psych: Alert and Oriented (to person )
Data Reviewed
-
Date of Service: July 31, 2024
EKG: Tracing Personally Visualized and interpreted (AF)
Echo: Report Reviewed by me
Labs: Labs Reviewed by me
--- NOTE | 2024-07-31 08:50 | PTCARENOTE ---
pt incont dark loose stools, heme + GI aware
[2024-07-31 08:59] LABS: % Basophils 0.2 % (0-2); % Eosinophils 0.7 % (0-6); % Lymphocytes 7.6 % (20.5-51.1); % Monocytes 3.2 % (1.7-9.3); % Neutrophils 81.3 % (42.2-75.2); Absolute Basophils 0.1 10^3/uL (0-0.2); Absolute Eosinophils 0.2 10^3/uL (0-0.7); Absolute Immature Granulocytes 1.4 10^3/uL (0-0.05); Absolute Lymphocytes 1.5 10^3/uL (1.2-3.4); Absolute Monocytes 0.7 10^3/uL (0.1-0.6); Absolute Neutrophils 16.5 10^3/uL (1.4-6.5); Nucleated Red Blood Cells % 0 %
--- NOTE | 2024-07-31 09:16 | W.PN.HOSP.TC ---
Today's Communication/Plan
-
see bold
Assessment / Plan
Assessment / Plan
78yo F with PMHx of dementia, HLD, GERD brought from facility with worsening confusion, recently found UTI and started on nitrofurantoin. C/O abd discomfort and CT abd showed signs of bladder outlet obstruction and cystitis. Also mild rectal wall
thickening with constipation. Later developed afib with RVR. DUe to persistent fevers and leukocytosis - switched to Zosyn on 07/28/24
As per - for the past 3 weeks patient became more lethargic, stopped going for a food, became incontinent of the urine.
A/P:
#Acute metabolic encephalopathy most likely 2/2 UTI
#Urinary retention with bladder outlet obstruction
#Non-obstructive nephrolithiasis
#FLORIAN with unknown Cr baseline and HAGMA
Urology: cont with dean, TOV before d/c if mentation improves
MRI brain neg for stroke, MRA neg for carotid stenosis
Neurology eval: most likely dementia with episodes of delirium as patients mentation fluctuating from very lethargic to wide awake
Urine culture with Klebsiella, leukocytosis worsening despite IV zosyn
Appreciate ID input, antibiotics changed to Rocephin
#Black stools
#Acute blood loss anemia
Hold heparin drip
Appreciate GI input, change IV Protonix to drip
Monitor hemoglobin
#Rectal wall thickening with constipation
As per patient - currently hesitant for colonoscopy
Status post enema
Appreciate GI input, continue laxatives
XR abd on 07/29/24 - no significant stool burden
#Hypernatremia
Needs supervised oral fluid intake
Improving on D5W
#New onset Afib
Appreciate cardiology input, continue Lopressor for rate control
Holding heparin drip due to black stools
#Hematuria
Resolved
#Dementia, unspecified
#GERD
Continue Pepcid, Seroquel
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
#DJD
#L hemidiaphragm elevation
PCP follow up and monitoring
#DM type 2
HgbA1c 8.3%
Continue SST, carb controlled diet
Start Lantus 10 units daily, aspart 3 units AC 3 times daily
#Hypokalemia
Replete prn
DVT prophylaxis�SCDs due to black stools
DNR
Left message on phone to give update 07/31
Total time spent to see the patient on the floor, examine the patient, review data and lab results, discuss treatment plan with patient, nursing staff around 51 minutes.
Physical Exam
General: No acute distress
HEENT: Normocephalic, Atraumatic, EOMI, MMM
Respiratory: Clear to Auscultation bilaterally
Cardiac: Normal S1/S2, irregularly irregular
GI: Soft, Nontender, Nondistended, Normal Bowel Sounds
Extremities: No Clubbing, Cyanosis, or Edema
Neuro: Pleasantly confused
Psych: Calm, Cooperative
Anticipated Discharge: > 48 hours
Subjective/Interval History
-
Date of Service: July 31, 2024
Patient had black stools overnight. She denies abdominal pain. No fever, no vomiting.
Objective Data
-
Labs:
Laboratory Results
07/31/24 07/31/24 07/31/24
07:18 10:00 18:00
WBC 20.3 H
Hgb 9.7 L Pending Pending
Hct 29.9 L Pending Pending
Plt Count 127 L
Sodium 144
Potassium 3.6
Chloride 106
Carbon Dioxide 23
BUN 19 H
Creatinine 0.7
Glucose 262 H
Calcium 7.4 L
Total Bilirubin 0.6
AST 83 H
ALT 56 H
Alkaline Phosphatase 137 H
Vital Signs:
Vital Signs
Temp Pulse Resp BP Pulse Ox
99.1 F 128 20 102/78 93
07/31/24 07:25 07/31/24 07:51 07/31/24 07:25 07/31/24 07:51 07/31/24 07:25
I&O
07/30/24 07/31/24 08/01/24
06:59 06:59 06:59
Intake Total 2258 / 2258 1320 / 1320
Output Total 1000 / 1000 1350 / 1350
Balance 1258 / 1258 -30 / -30
--- NOTE | 2024-07-31 09:16 | W.PN.GI.CBS2 ---
Addendum entered and electronically signed by Lyubov Damon DO 07/31/24 10:53:
The patient was seen and examined by me independently in collaboration with the nurse practitioner.
Past medical history/social history/medications/allergies/family history reviewed.
Lab data and imaging data reviewed.
Patient previously seen by GI last week, called back for concerning black stools after she was started on a heparin drip.
BUN 27 --> 22 --> 19; Hgb 12.3 --> 11.0 --> 10.5 --> 9.7. Rectal exam with dark brown, heme positive stool. Previously impacted, no evidence of this on repeat exam today. No prior EGD or colonoscopy in the past, Cologuard 4 years ago was
negative. Last dose of Eliquis was on 07/28. Attempted to reach out to patient's , her power of immigration attorney, to discuss goals of care and wishes to pursue any endoscopic procedures for further evaluation versus conservative measures and
monitoring her hemoglobin and stool pattern. Will determine next steps based on this conversation. She does not demonstrate any evidence of hemodynamically unstable GI bleeding at this time. Will change her once daily Protonix to PPI drip until
further decisions have been made. Continue to trend hemoglobin.
Original Note:
Today's Communication / Plan
-
rectal exam today with large volume liquid dark brown heme + stool no further impaction
likely GI bleeding with start of anticoagulation upper vs lower source -- BUN continued to trend down from admission with FLORIAN noted on admit
no hx EGD in past and pt did not want colonoscopy but had Cologuard neg 4 year sago
trend hbg and stool pattern
Eliquis hold last dose 07/28
hbg 12.3 on admission now slow drop with AC started 11- 10.5--9.7
I left message for spouse as wishes to for conservative measures with last conversation due to dementia-- will need to discuss holding anticoagulation vs GI work up inpatient vs OP when UTI/pyelo improves
currently on miralax daily with recent impaction follow for need to continue
cont abx with UTI/pyelo per medical team
cont abx for UTI
remains on Pureed diet
Assessment / Plan
-
Pt is an 78yo with hx dementia, HTN, hypercholesterolemia, anxiety presents from [facility] with UTI/FLORIAN and noted pyelo on CT 07/30. she was seen earlier admission CT rectal wall thickening and fecal impaction. Family declined invasive testing
with dementia and pt was given enema. She had repeat CT yesterday with concern for right sided pyelonephritis/cystitis follow up to rule out malignancy but also noted with afib RVR with start of heparin then Eliquis. She in now noted with black
stools and today dark brown heme + with large volume. She also had rise in LFT's after admission with UTI/sepsis and pyleo now improving.
07/30 CT Abd/pel W Iv And Oral Contr
1. Findings suspicious for right-sided pyelonephritis and cystitis in the appropriate clinical context. Recommend follow-up imaging after treatment to rule out underlying right renal neoplasm.
2. Trace bilateral pleural effusions.
-heme + dark drown liquid stools
-new afib with RVR during admission with new heparin then Eliquis
-fecal impaction with rectal thickening on admission
-Klebsiella UTI with FLORIAN/pyelo
-persistent leukocytosis
-increased LFT's likely UTI/sepsis/pyelo related
-dementia
other med problems:
-HTN
-hypercholesterolemia
-anxiety
-DNR
PLAN:
rectal exam today with large volume liquid dark brown heme + stool no further impaction
likely GI bleeding with start of anticoagulation upper vs lower source -- BUN continued to trend down from admission with FLORIAN noted on admit
no hx EGD in past and pt did not want colonoscopy but had Cologuard neg 4 year sago
trend hbg and stool pattern
Eliquis hold last dose 07/28
hbg 12.3 on admission now slow drop with AC started 11- 10.5--9.7
I left message for spouse as wishes to for conservative measures with last conversation due to dementia-- will need to discuss holding anticoagulation vs GI work up inpatient vs OP when UTI/pyelo improves
currently on miralax daily with recent impaction follow for need to continue
cont abx with UTI/pyelo per medical team
cont abx for UTI
remains on Pureed diet
Subjective
Subjective
Date of Service: July 31, 2024
brown stool 07/29 then black stool 07/30 now large volume dark brown stool heme + liquid stool on exam on pureed diet
Objective
Data Reviewed
Laboratory Data:
Laboratory Results
07/31/24 07:18
Laboratory Results
APTT 138.2 Sec (23.4-35.0) H 07/30/24 20:28
Magnesium 2.4 mg/dl (1.6-2.3) H 07/26/24 07:31
Total Bilirubin 0.6 mg/dl (0.2-1.3) 07/31/24 07:18
AST 83 U/L (14-36) H 07/31/24 07:18
ALT 56 U/L (0-35) H 07/31/24 07:18
Alkaline Phosphatase 137 U/L (38-126) H 07/31/24 07:18
Vital Signs and I&O:
Vital Signs
Temp Pulse Resp BP Pulse Ox
99.1 F 128 20 102/78 93
07/31/24 07:25 07/31/24 07:51 07/31/24 07:25 07/31/24 07:51 07/31/24 07:25
I&O
07/30/24 07/31/24 08/01/24
06:59 06:59 06:59
Intake Total 2258 / 2258 1320 / 1320
Output Total 1000 / 1000 1350 / 1350
Balance 1258 / 1258 -30 / -30
Physical Exam
Physical Exam
HEENT: Anicteric and Moist mucous membranes
Cardiology: Normal Sinus Rhythm
Pulmonary: Clear
GI: Soft, Non Distended and Non Tender
Rectal: Other (dark brown large volume heme + no impaction)
Extremities: No Edema
Neuro: Other (confused minimal verbal )
[2024-07-31] MEDS: NOVOLOG FLEXPEN-LOW RESISTANCE 3 UNITS SC ×2 (09:31→12:41)
[2024-07-31] MEDS: D5W 1000 IV (10:19)
--- NOTE | 2024-07-31 11:01 | CM ---
Addendum entered by Ana Marie 07/31/24 11:02:
Plan is for skilled placement at the [facility] and then return to [facility].
Original Note:
Chart reviewed and update provided to admissions at the [facility], plan is for skilled placement prior to returning to home with spouse at [facility] independent living.
Plan; Skilled placement at the [facility].
[2024-07-31 11:20] VITALS: BP 116/65
[2024-07-31 11:36] LABS: Glucose - Point of Care 291 mg/dl (70-99)
--- NOTE | 2024-07-31 12:17 | W.PN.ID1 ---
Date of Service
Date of Service: July 31, 2024
Today's Communication
DC cefepime/metronidazole and resume ceftriaxone.
Assessment / Plan
# Recurrence of fever and leukocytosis
- Suspect due to GIB from heparin gtt for new-onset afib
Had large black stool, heme+ last night.
H/H trending down.
-No untreated infectious etiology identified.
- Fever resolving.
- Leukocytosis slightly improved today.
- Continue to trend wbc.
- DC empiric cefepime/metronidazole.
# Klebsiella pneumoniae complicated UTI
# Acute urinary retention, Giles status since 07-26-24
- CT a/p: suspicious for right-sided pyelonephritis
- De-escalate abx back to ceftriaxone (d7 abx).
# New-onset afib
- Heparin gtt on hold due to GIB.
#Acute kidney injury, resolved
#Conditions known prior to admission
Dementia
Atrial fibrillation
Essential hypertension
Gastroesophageal reflux disease
Thoracic hemangioma
Degenerative disc disease
Type II diabetes mellitus
Hyperlipidemia
Chief Complaint
-: Fever, Leukocytosis and UTI
Subjective / Review of Systems
Denies complaint.
Vital Signs / Physical Exam
Vital Signs
Vital Signs
Temp Pulse Resp BP Pulse Ox
99.3 F 88 20 116/65 91
07/31/24 11:20 07/31/24 11:20 07/31/24 11:20 07/31/24 11:20 07/31/24 11:20
Physical Exam
Constitutional: Chronically Ill
Cardiovascular: Irregular Rate and S1/S2
Pulmonary: Clear
Gastrointestinal: Soft, Tender (pt grimaces upon palpation of abdomen), Non Distended and Decreased Bowel Sounds
Genito-Urinary: Negative CVA Tenderness
Neurological: Awake
Objective Data
Lab Data
Lab Results
07/31/24 18:00
07/31/24 07:18
APTT 138.2 Sec (23.4-35.0) H 07/30/24 20:28
Estimated Creat Clear 62 ml/min 07/31/24 07:18
Total Bilirubin 0.6 mg/dl (0.2-1.3) 07/31/24 07:18
AST 83 U/L (14-36) H 07/31/24 07:18
ALT 56 U/L (0-35) H 07/31/24 07:18
Alkaline Phosphatase 137 U/L (38-126) H 07/31/24 07:18
Most recent labs reviewed.
Micro Results:
07/28/24 20:23 Blood Culture - Preliminary
Blood/Venous No Growth in 48 hours- Final report to follow
07/28/24 20:23 Blood Culture - Preliminary
Blood/Venous No Growth in 48 hours- Final report to follow
07/25/24 17:47 Urine Culture - Final
Urine Klebsiella pneumoniae
07/26/24 06:31 MRSA Screen - Final
Nose No Methicillin Resistant Staphylococcus aureus isolated.
07/30/24 CT a/p with IV and po contrast: Findings suspicious for right-sided pyelonephritis and cystitis in the appropriate clinical context. Recommend follow-up imaging after treatment to rule out underlying right renal neoplasm. Trace bilateral
pleural effusions.
[2024-07-31] MEDS: PROTONIX 100 IV ×2 (12:29→21:50)
[2024-07-31] MEDS: LANTUS 0.1 UNITS SC (13:19)
[2024-07-31] MEDS: NOVOLOG FLEXPEN 3 UNITS SC ×2 (13:20→16:56)
[2024-07-31] MEDS: ROCEPHIN 1000 MG IV (14:46)
[2024-07-31] MEDS: KCL 10 MEQ PO (14:49)
--- NOTE | 2024-07-31 15:16 | W.PN.UPDATE ---
Update Note
Progress Note Update
reviewed with spouse with concern for bleeding and worsening anemia with initiation of anticoagulation with afib. Pt has declined colonoscopy for years and he would like to hold. Will have hospitalist/cards review risk of holding anticoagulation
with new Afib. sent TT with Dr. Blackman and dr. Little.
[2024-07-31 15:40] VITALS: BP 115/71
[2024-07-31 16:33] LABS: Glucose - Point of Care 224 mg/dl (70-99)
[2024-07-31] MEDS: NOVOLOG FLEXPEN-LOW RESISTANCE 2 UNITS SC (16:56)
[2024-07-31 18:26] LABS: Hematocrit 28.6 % (37.0-47.0); Hemoglobin 9.8 g/dL (12.0-16.0)
[2024-07-31 19:30] VITALS: BP 133/79
[2024-07-31 21:43] LABS: Glucose - Point of Care 216 mg/dl (70-99)
[2024-07-31 23:30] VITALS: BP 122/71
[2024-08-01] VITALS (8 sets, daily range): BP systolic 105–142; BP diastolic 52–81; PULSE 73; O2SAT 96–98; BMI 33.2
[2024-08-01] MEDS: PROTONIX 100 IV ×2 (05:53→16:24)
--- NOTE | 2024-08-01 07:57 | W.PN.GI.CBS2 ---
Addendum entered and electronically signed by Lyubov Damon DO 08/01/24 09:27:
I saw and examined the patient.
The UPSETTING MACHINE OPERATOR or PA's note was reviewed and I agree with the note.
Comment: Agree with plan as outlined below.
Continue supportive care, trend H&H, transfuse for Hgb <7.0. Agree with continuing PPI for additional 24 hours, then change to BID. Kimberly Cai discussed bleeding at length with patient's , who has declined any endoscopic evaluation at this
time, and after careful review, cardiology recommends holding anticoagulation, given concern for ongoing bleeding.
LFTs improving-- possibly 2/2 sepsis in setting of pyelo/cystitis? Leukocytosis mildly improved.
GI will sign off. Please call with questions.
Addendum entered and electronically signed by COLIN Estevez 08/01/24 08:35:
reviewed with Dr. casper holding AC as not proceed with GI work up
Original Note:
Today's Communication / Plan
-
dark gelatinous stool overnight -- may be multifactorial with GI bleed with AC added, abx related diarrhea, resolving pyelo
AM labs pending
PPI gtt cont 24 more hours if hbg stable change to BID in AM
spouse wishes to hold on scopes
hospitalist/cards input on risk of AC hold
diet as tolerated
trend LFT's- ? sepsis related
Assessment / Plan
-
Pt is an 78yo with hx dementia, HTN, hypercholesterolemia, anxiety presents from [facility] with UTI/FLORIAN and noted pyelo on CT 07/30. she was seen earlier admission CT rectal wall thickening and fecal impaction. Family declined invasive testing
with dementia and pt was given enema. She had repeat CT yesterday with concern for right sided pyelonephritis/cystitis follow up to rule out malignancy but also noted with afib RVR with start of heparin then Eliquis. She in now noted with black
stools and today dark brown heme + with large volume. She also had rise in LFT's after admission with UTI/sepsis and pyleo now improving.
07/30 CT Abd/pel W Iv And Oral Contr
1. Findings suspicious for right-sided pyelonephritis and cystitis in the appropriate clinical context. Recommend follow-up imaging after treatment to rule out underlying right renal neoplasm.
2. Trace bilateral pleural effusions.
-heme + dark drown liquid stools
-new afib with RVR during admission with new heparin then Eliquis
-fecal impaction with rectal thickening on admission
-Klebsiella UTI with FLORIAN/pyelo
-persistent leukocytosis
-increased LFT's likely UTI/sepsis/pyelo related
-dementia
other med problems:
-HTN
-hypercholesterolemia
-anxiety
-DNR
PLAN:
still with liquid gelatinous stool overnight
etiology related to bleeding with adding anticoagulation now off, but also need to consider antibiotic related diarrhea, miralax related but dose held last 2 days, vs some ileus now resolving with pyelo vs other
I discussed at length 07/31 with spouse new anticoagulation and bleeding concern no hx EGD in past and pt did not want colonoscopy but had Cologuard neg 4 years ago -- he wishes to hold on scopes for now
spouse to further review with cards and hospitalist risk of anticoagulation hold
trend hbg(AM labs still pending) and stool pattern
Hgb 12.3 --> 11.0 --> 10.5 --> 9.7-->9.8 --. AM pending
Eliquis hold last dose 07/28
will hold miralax and continue PRN for now
repeat LFT's pending- trending down -- possible pyelo/infection related
cont abx with UTI/pyelo per medical team
remains on Pureed diet advance per speech
Subjective
Subjective
Date of Service: August 01, 2024
still some gelatinous stool this am-- on pureed diet
Objective
Data Reviewed
Laboratory Data:
Laboratory Results
APTT 138.2 Sec (23.4-35.0) H 07/30/24 20:28
Magnesium 2.4 mg/dl (1.6-2.3) H 07/26/24 07:31
Total Bilirubin 0.6 mg/dl (0.2-1.3) 07/31/24 07:18
AST 83 U/L (14-36) H 07/31/24 07:18
ALT 56 U/L (0-35) H 07/31/24 07:18
Alkaline Phosphatase 137 U/L (38-126) H 07/31/24 07:18
Vital Signs and I&O:
Vital Signs
Temp Pulse Resp BP Pulse Ox
98.1 F 104 16 128/58 95
08/01/24 03:30 08/01/24 03:30 08/01/24 03:30 08/01/24 03:30 08/01/24 03:30
I&O
07/31/24 08/01/24 08/02/24
06:59 06:59 06:59
Intake Total 1320 / 1320 720 / 720
Output Total 1350 / 1350 1025 / 1025
Balance -30 / -30 -305 / -305
Physical Exam
Physical Exam
HEENT: Anicteric and Moist mucous membranes
Cardiology: Other (tachy)
Pulmonary: Clear
GI: Soft, Non Distended and Tender (mild mid abdominal tenderness )
Extremities: No Edema
Neuro: Other (awake with some verbal communication confused)
[2024-08-01] MEDS: LOPRESSOR 100 MG PO (08:00)
[2024-08-01 08:01] LABS: Glucose - Point of Care 212 mg/dl (70-99)
[2024-08-01] MEDS: CARDIZEM CD 240 MG PO (08:01)
[2024-08-01] MEDS: MIRALAX PO (08:01)
[2024-08-01] MEDS: LANTUS 0.1 UNITS SC (08:02)
[2024-08-01] MEDS: NOVOLOG FLEXPEN 3 UNITS SC ×2 (08:03→12:25)
[2024-08-01] MEDS: NOVOLOG FLEXPEN-LOW RESISTANCE 2 UNITS SC (08:03)
[2024-08-01] MEDS: NSS (PRESERVATIVE FREE) IV (08:03)
--- NOTE | 2024-08-01 08:39 | W.PN.HOSP.TC ---
Today's Communication/Plan
-
see bold
Assessment / Plan
Assessment / Plan
78yo F with PMHx of dementia, HLD, GERD brought from facility with worsening confusion, recently found UTI and started on nitrofurantoin. C/O abd discomfort and CT abd showed signs of bladder outlet obstruction and cystitis. Also mild rectal wall
thickening with constipation. Later developed afib with RVR. DUe to persistent fevers and leukocytosis - switched to Zosyn on 07/28/24
As per - for the past 3 weeks patient became more lethargic, stopped going for a food, became incontinent of the urine.
A/P:
#Acute metabolic encephalopathy most likely 2/2 UTI
#Urinary retention with bladder outlet obstruction
#Non-obstructive nephrolithiasis
#FLORIAN with unknown Cr baseline and HAGMA
Urology: cont with dean, TOV before d/c if mentation improves
MRI brain neg for stroke, MRA neg for carotid stenosis
Neurology eval: most likely dementia with episodes of delirium as patients mentation fluctuating from very lethargic to wide awake
Urine culture with Klebsiella, leukocytosis worsening despite IV zosyn
Appreciate ID input, antibiotics changed to Rocephin
#Black stools
#Acute blood loss anemia
Hold heparin drip
Appreciate GI input, changed IV Protonix to drip
Hgb 9.3, was 12.3 upon admission
Patient's declines EGD/colonoscopy
Permanently stay off anticoagulation
Monitor hemoglobin
#Rectal wall thickening with constipation
As per patient - currently hesitant for colonoscopy
Status post enema
Appreciate GI input, continue laxatives
XR abd on 07/29/24 - no significant stool burden
#Hypernatremia
Needs supervised oral fluid intake
Resolved status post D5W
#New onset Afib
Appreciate cardiology input, continue Lopressor for rate control
Discussed with , patient will permanently stay off of anticoagulation
#Hematuria
Resolved
#Dementia, unspecified
#GERD
Continue Pepcid, Seroquel
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
#DJD
#L hemidiaphragm elevation
PCP follow up and monitoring
#DM type 2
HgbA1c 8.3%
Continue SST, carb controlled diet
Started Lantus 10 units daily
#Hypokalemia
Replete prn
DVT prophylaxis�SCDs due to black stools
DNR
Updated on phone 08/01
Total time spent to see the patient on the floor, examine the patient, review data and lab results, discuss treatment plan with patient, nursing staff around 50 minutes.
Physical Exam
General: No acute distress
HEENT: Normocephalic, Atraumatic, EOMI, MMM
Respiratory: Clear to Auscultation bilaterally
Cardiac: Normal S1/S2, irregularly irregular
GI: Soft, Nontender, Nondistended, Normal Bowel Sounds
Extremities: No Clubbing, Cyanosis, or Edema
Neuro: Pleasantly confused
Psych: Calm, Cooperative
Anticipated Discharge: 24 - 48 hours
Subjective/Interval History
-
Date of Service: August 01, 2024
No black or bloody stools. No pain. No fever, no vomiting.
Objective Data
-
Labs:
Laboratory Results
08/01/24
08:14
WBC Pending
Hgb Pending
Hct Pending
Plt Count Pending
Sodium Pending
Potassium Pending
Chloride Pending
Carbon Dioxide Pending
BUN Pending
Creatinine Pending
Glucose Pending
Calcium Pending
Total Bilirubin Pending
AST Pending
ALT Pending
Alkaline Phosphatase Pending
Vital Signs:
Vital Signs
Temp Pulse Resp BP Pulse Ox
98.6 F 121 18 142/81 95
08/01/24 07:32 08/01/24 08:01 08/01/24 07:32 08/01/24 08:00 08/01/24 07:32
I&O
07/31/24 08/01/24 08/02/24
06:59 06:59 06:59
Intake Total 1320 / 1320 720 / 720
Output Total 1350 / 1350 1025 / 1025
Balance -30 / -30 -305 / -305
[2024-08-01 08:48] LABS: Hematocrit 27.9 % (37.0-47.0); Hemoglobin 9.3 g/dL (12.0-16.0); Mean Corp Hgb Conc. 33.3 g/dL (33.0-37.0); Mean Platelet Volume 11.8 fL (7.4-10.4); Platelet Count 131 10^3/uL (130-400); White Blood Cell Count 18.9 10^3/uL (4.8-10.8)
--- NOTE | 2024-08-01 08:52 | W.PN.CD ---
Today's Communication / Plan
-
Plan will be rate control: diltiazem 360mg daily, Toprol XL 100mg bid
Oral Anticoagulation: none, due to downtrending Hgb, and family declines endoscopy
-discussed with and inpatient care team
Bisoprolol-HCTZ stopped this admission
Does not need cardiology follow up.
please call us with additional questions
Impression / Plan
-
78 yo female presents with altered mental status attributed to infection and found to be in Afib with RVR.
New atrial fibrillation with rapid ventricular response
- per , he does not believe that his has had AFib before.
- plan will be rate control: diltiazem 360mg daily, Toprol XL 100mg bid
- Oral Anticoagulation: none, due to downtrending Hgb, and family declines endoscopy
-discussed with and inpatient care team
- plan for Eliquis 5mg BID when hgb is stable.
- [id number]: score at least 5 (HTN, age 75 or more, Diabetes Mellitus, female gender).
Suspected UTI - per hospitalist.
- on antibiotics.
- Giles in place.
GI bleed
- GI consulted
HTN - stable on Diltiazem and Lopressor.
- continue and monitor.
- usually on bisoprolol-HCTZ dose uncertain: stopped this admission
- difficult to increase this AM BP borderline at 102/78
FLORIAN - resolved.
- Giles catheter in place.
- urology following as she has left renal calculus and mild hematuria.
Type 2 diabetes mellitus - HgbA1c 8.3%.
- per hospitalist.
Dementia - chronic.
- lives in memory care [facility].
Subjective:
No cardiac complaints
Physical Exam
Vital Signs/Labs
Vital Signs
Temp Pulse Resp BP Pulse Ox
98.6 F 121 18 142/81 95
09/11/24 07:32 08/01/24 08:01 08/01/24 07:32 08/01/24 08:00 08/01/24 07:32
07/31/24 08/01/24 08/02/24
06:59 06:59 06:59
Actual Weight 77.734 kg 82.185 kg
08/01/24 08:14
APTT 138.2 Sec (23.4-35.0) H 07/30/24 20:28
Magnesium 2.4 mg/dl (1.6-2.3) H 07/26/24 07:31
Triglycerides 196 mg/dl (10-149) H 07/28/24 06:44
LDL Cholesterol, Calc 18 mg/dl 07/28/24 06:44
VLDL Cholesterol, Calc 39 mg/dl (0-30) H 07/28/24 06:44
HDL Cholesterol 16 mg/dl 07/28/24 06:44
Free T4 1.25 ng/dl (0.78-2.19) 07/28/24 06:44
Physical Exam
Constitutional: Comfortable
EENT: Moist mucous membranes
Cardiovascular: Pedal edema is absent, JVD pressure is normal, Systolic murmur absent and Rhythm/rate is irregular
Respiratory: Respiratory effort normal and Lungs clear to auscul.
GI: Soft and Distention absent
Neuro/Psych: Alert
Data Reviewed
-
Date of Service: August 01, 2024
EKG: Other (Tele: A fib 90s (avg))
Labs: Labs Reviewed by me
Total Time Spent with Patient (in minutes): 50
[2024-08-01 09:01] LABS: ALT (SGPT) 43 U/L (0-35); AST (SGOT) 56 U/L (14-36); Albumin 2.3 g/dl (3.5-5.0); Alkaline Phosphatase 120 U/L (38-126); Blood Urea Nitrogen 12 mg/dl (7-17); Calcium 7.6 mg/dl (8.4-10.2); Carbon Dioxide 25 mmol/L (22-30); Chloride 107 mmol/L (98-107); Direct Bilirubin 0.3 mg/dl (0.0-0.4); Estimated Creatinine Clearance 74 ml/min; Glucose 210 mg/dl (70-99); Magnesium 1.9 mg/dl (1.6-2.3); Potassium 3.6 mmol/L (3.5-5.1); Sodium 139 mmol/L (135-145); Total Bilirubin 0.6 mg/dl (0.2-1.3); eGFR > 60.00
--- NOTE | 2024-08-01 11:06 | CM ---
energy and sustainability manager reviewed patient's chart and spoke with patient's physician, and plan is for discharge possibly Tuesday depending on progress, case making machine operator spoke with Camelia in admissions at the [facility] and bed is available for patient at the [facility] when stable, case making machine operator left message for patient's spouse regarding update on plan for patient.
Plan; Skilled placement at the [facility] when stable, no Auth required. Updated clinical sent through [facility] today.
[facility]
Report [phone]
[2024-08-01 12:08] LABS: Glucose - Point of Care 180 mg/dl (70-99)
[2024-08-01] MEDS: NOVOLOG FLEXPEN-LOW RESISTANCE 1 UNITS SC (12:25)
--- NOTE | 2024-08-01 13:21 | W.PN.ID1 ---
Addendum entered and electronically signed by Mariana Corona MD 08/01/24 15:20:
I saw and evaluated the patient. I reviewed the resident�s note and agree with most of the findings and plan as documented in the resident�s note.
# Reccurence of fever - resolved
# Recurrence of leukocytosis - improving
- due to GIB from recent heparin gtt for new-onset afib
H/H trending down.
-No untreated infectious etiology identified.
-Trend wbc
# Klebsiella pneumoniae complicated UTI
# Acute urinary retention, Giles status since 07-26-24
- CT a/p: suspicious for right-sided pyelonephritis
- Continue ceftriaxone (d8 abx).
- Anticipate transition to po abx tomorrow.
# New-onset afib
- Off antip-coagulation due to GIB.
- declines endoscope, as per GI.
#Acute kidney injury, resolved
#Conditions known prior to admission
Dementia
Atrial fibrillation
Essential hypertension
Gastroesophageal reflux disease
Thoracic hemangioma
Degenerative disc disease
Type II diabetes mellitus
Hyperlipidemia
Original Note:
Date of Service
Date of Service: August 01, 2024
Today's Communication
Continue ceftriaxone.
Assessment / Plan
Recurrent fevers, stable
Leukocytosis, improving
- Both noted while on broad antibiotic coverage.
- Possibly from bleeding on heparin gtt for new-onset afib
- Had large black stool, heme+ 07-30-24, H/H trending down since at least 07-29-24.
- Unlikely that this is from an infectious source.
- Has remained afebrile and leukocytosis now improving.
- Continue to trend wbc.
Acute complicated urinary tract infection
Acute right-sided pyelonephritis
Acute urinary retention, Giles status since 07-26-24
- Afebrile and down-trending leukocytosis; vitals stable.
- Continue ceftriaxone (day 8 of antibiotics).
Atrial fibrillation
- Heparin gtt on hold due to GIB.
#Acute kidney injury, resolved
#Conditions known prior to admission
Dementia
Atrial fibrillation
Essential hypertension
Gastroesophageal reflux disease
Thoracic hemangioma
Degenerative disc disease
Type II diabetes mellitus
Hyperlipidemia
Chief Complaint
-: Fever, Leukocytosis and UTI
Subjective / Review of Systems
Denies complaint.
Vital Signs / Physical Exam
Vital Signs
Vital Signs
Temp Pulse Resp BP Pulse Ox
97.7 F 94 16 110/53 91
08/01/24 11:52 08/01/24 11:52 08/01/24 11:52 08/01/24 11:52 08/01/24 11:52
Physical Exam
Constitutional: Chronically Ill
Cardiovascular: Irregular Rate and S1/S2
Pulmonary: Clear
Gastrointestinal: Soft, Tender (pt grimaces upon palpation of abdomen), Non Distended and Decreased Bowel Sounds
Genito-Urinary: Negative CVA Tenderness
Neurological: Awake
Objective Data
Lab Data
Lab Results
08/01/24 08:14
08/01/24 08:14
APTT 138.2 Sec (23.4-35.0) H 07/30/24 20:28
Estimated Creat Clear 74 ml/min 08/01/24 08:14
Total Bilirubin 0.6 mg/dl (0.2-1.3) 08/01/24 08:14
AST 56 U/L (14-36) H 08/01/24 08:14
ALT 43 U/L (0-35) H 08/01/24 08:14
Alkaline Phosphatase 120 U/L (38-126) 08/01/24 08:14
Most recent labs reviewed.
Micro Results:
07/28/24 20:23 Blood Culture - Preliminary
Blood/Venous No Growth in 72 hours- Final report to follow
07/28/24 20:23 Blood Culture - Preliminary
Blood/Venous No Growth in 72 hours- Final report to follow
07/25/24 17:47 Urine Culture - Final
Urine Klebsiella pneumoniae
07/26/24 06:31 MRSA Screen - Final
Nose No Methicillin Resistant Staphylococcus aureus isolated.
07/30/24 CT a/p with IV and po contrast: Findings suspicious for right-sided pyelonephritis and cystitis in the appropriate clinical context. Recommend follow-up imaging after treatment to rule out underlying right renal neoplasm. Trace bilateral
pleural effusions.
[2024-08-01] MEDS: STERILE WATER FOR INJECTION 10 ML IV (13:25)
[2024-08-01] MEDS: ROCEPHIN 1000 MG IV (13:26)
--- NOTE | 2024-08-01 14:26 | WOUNDNOTE ---
WOC RN note: Patient admitted with UTI/confusion
See H&P for complete history.
PMH: HTN, arthritis, dementia, A-fib, type 2 DM.
Wound Location and type/assessment: Patient with new ecchymotic area to right buttock. The area is non-blanchable and red/purple. This wound may continue to evolve and is a stage 1 vs DTI. Patient has dean but is incontinent of stool. Heels
intact.
Appetite: Poor
Pressure redistribution devices in place: Air cushion applied to chair and air overlay applied to bed.
Plan: Continue with turning schedule and air surfaces. May use sacral foam dressing or barrier ointment if frequently incontinent. Spoke to DIANE Melchor and reviewed plan to continue off-loading and assessment of evolving buttock wound. Please limit
time in chair to 2 hours. Will confirm orders with hospitalist and update nurse.
Updated care plan and will follow as needed.
Note to case management of equipment requested for discharge: [employer] [facility] for air surface and SNF , LTC
[2024-08-01] MEDS: POTASSIUM PHOSPHATE 259.0909 MEQ IV (16:25)
[2024-08-01 16:37] LABS: Glucose - Point of Care 148 mg/dl (70-99)
[2024-08-01] MEDS: NOVOLOG FLEXPEN-LOW RESISTANCE SC (16:40)
[2024-08-01] MEDS: NEUTRA-PHOS POWDER PACKET 250 MG PO ×2 (17:06→21:00)
[2024-08-01] MEDS: TOPROL XL 100 MG PO (20:35)
[2024-08-01] MEDS: FLUSH (NSS) IV ×2 (21:00)
[2024-08-01 21:21] LABS: Glucose - Point of Care 187 mg/dl (70-99)
[2024-08-02] MEDS: PROTONIX 100 IV (02:28)
[2024-08-02 03:35] VITALS: BP 126/52
[2024-08-02 06:00] VITALS: BMI 32.4
[2024-08-02 07:15] VITALS: BP 122/65
[2024-08-02 07:26] LABS: Glucose - Point of Care 159 mg/dl (70-99)
[2024-08-02] MEDS: TOPROL XL 100 MG PO ×2 (07:43→19:04)
[2024-08-02] MEDS: CARDIZEM CD 360 MG PO (07:44)
[2024-08-02 08:58] LABS: Hematocrit 29.1 % (37.0-47.0); Hemoglobin 9.4 g/dL (12.0-16.0); Mean Corp Hgb Conc. 32.3 g/dL (33.0-37.0); Mean Corpuscular Hgb 29.6 pg (27.0-31.0); Mean Corpuscular Volume 91.5 fL (81.0-99.0); Mean Platelet Volume 11.6 fL (7.4-10.4); Platelet Count 159 10^3/uL (130-400); Red Blood Cell Count 3.18 10^6/uL (4.20-5.40); Red Cell Dist. Width 13.9 % (11.5-14.5); White Blood Cell Count 14.5 10^3/uL (4.8-10.8)
--- NOTE | 2024-08-02 09:15 | W.PN.HOSP.TC ---
Today's Communication/Plan
-
Discharge tomorrow
Assessment / Plan
Assessment / Plan
78yo F with PMHx of dementia, HLD, GERD brought from facility with worsening confusion, recently found UTI and started on nitrofurantoin. C/O abd discomfort and CT abd showed signs of bladder outlet obstruction and cystitis. Also mild rectal wall
thickening with constipation. Later developed afib with RVR. DUe to persistent fevers and leukocytosis - switched to Zosyn on 07/28/24
As per - for the past 3 weeks patient became more lethargic, stopped going for a food, became incontinent of the urine.
A/P:
#Sepsis secondary to UTI
#Acute metabolic encephalopathy most likely 2/2 UTI
#Urinary retention with bladder outlet obstruction
#Non-obstructive nephrolithiasis
#FLORIAN with unknown Cr baseline and HAGMA
Urology: cont with dean, TOV before d/c if mentation improves
MRI brain neg for stroke, MRA neg for carotid stenosis
Neurology eval: most likely dementia with episodes of delirium as patients mentation fluctuating from very lethargic to wide awake
Urine culture with Klebsiella, leukocytosis worsening despite IV zosyn
Appreciate ID input, antibiotics changed to Rocephin
ID rec transitioning ceftriaxone (d9 abx) to cefuroxime 500mg po bid through 08/07/24
Plan for discharge to short-term rehab tomorrow
#Black stools
#Acute blood loss anemia
Hold heparin drip
Appreciate GI input, changed IV Protonix to drip
Hgb 9.4 today, was 9.3, was 12.3 upon admission
Patient's declines EGD/colonoscopy
Permanently stay off anticoagulation
Monitor hemoglobin
#Rectal wall thickening with constipation
As per patient - currently hesitant for colonoscopy
Status post enema
Appreciate GI input, continue laxatives
XR abd on 07/29/24 - no significant stool burden
#Hypophosphatemia
Replete prn
#Hypernatremia
Needs supervised oral fluid intake
Resolved status post D5W
#New onset Afib
Appreciate cardiology input, continue Lopressor for rate control
Discussed with , patient will permanently stay off of anticoagulation
#Hematuria
Resolved
#Dementia, unspecified
#GERD
Continue Pepcid, Seroquel
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
#DJD
#L hemidiaphragm elevation
PCP follow up and monitoring
#DM type 2
HgbA1c 8.3%
Continue SST, carb controlled diet
Started Lantus 10 units daily
#Hypokalemia
Replete prn
DVT prophylaxis�SCDs due to black stools
DNR
Updated on phone 08/01
Total time spent to see the patient on the floor, examine the patient, review data and lab results, discuss treatment plan with patient, nursing staff around 40 minutes.
Physical Exam
General: No acute distress
HEENT: Normocephalic, Atraumatic, EOMI, MMM
Respiratory: Clear to Auscultation bilaterally
Cardiac: Normal S1/S2, irregularly irregular
GI: Soft, Nontender, Nondistended, Normal Bowel Sounds
Extremities: No Clubbing, Cyanosis, or Edema
Neuro: Pleasantly confused
Psych: Calm, Cooperative
Anticipated Discharge: Within 24 hours
Subjective/Interval History
-
Date of Service: August 01, 2024
Patient pulled out her IV. No fever, no vomiting.
Objective Data
-
Labs:
Laboratory Results
08/01/24
08:14
WBC 18.9 H
Hgb 9.3 L
Hct 27.9 L
Plt Count 131
Sodium 139
Potassium 3.6
Chloride 107
Carbon Dioxide 25
BUN 12
Creatinine 0.6
Glucose 210 H
Calcium 7.6 L
Total Bilirubin 0.6
AST 56 H
ALT 43 H
Alkaline Phosphatase 120
Vital Signs:
Vital Signs
Temp Pulse Resp BP Pulse Ox
97.7 F 90 16 108/52 94
08/01/24 15:21 08/01/24 15:21 08/01/24 15:21 08/01/24 15:21 08/01/24 15:21
I&O
07/31/24 08/01/24 08/02/24
06:59 06:59 06:59
Intake Total 1320 / 1320 720 / 720
Output Total 1350 / 1350 1025 / 1025
Balance -30 / -30 -305 / -305
[2024-08-02 09:17] LABS: Blood Urea Nitrogen 11 mg/dl (7-17); Calcium 7.3 mg/dl (8.4-10.2); Carbon Dioxide 29 mmol/L (22-30); Chloride 107 mmol/L (98-107); Estimated Creatinine Clearance 63 ml/min; Glucose 158 mg/dl (70-99); Magnesium 1.9 mg/dl (1.6-2.3); Phosphorus 3.1 mg/dl (2.5-4.5); Potassium 3.9 mmol/L (3.5-5.1); Sodium 142 mmol/L (135-145); eGFR > 60.00
[2024-08-02] MEDS: NOVOLOG FLEXPEN-LOW RESISTANCE SC ×3 (09:19→16:45)
[2024-08-02] MEDS: NEUTRA-PHOS POWDER PACKET 250 MG PO ×2 (09:29→13:53)
[2024-08-02] MEDS: LANTUS 0.1 UNITS SC (09:41)
--- NOTE | 2024-08-02 10:59 | W.PN.ID1 ---
Addendum entered and electronically signed by Mariana Corona MD 08/02/24 12:14:
I saw and evaluated the patient. I reviewed the resident�s note and agree with findings and plan as documented in the resident�s note.
# Klebsiella pneumoniae complicated UTI
# Acute urinary retention, Giles status since 07-26-24
- CT a/p: suspicious for right-sided pyelonephritis
- Transition ceftriaxone (d9 abx) to cefuroxime 500mg po bid through 08/07/24.
# S/P GIB from anticoagulation -> dc'd
- Leukocytosis continues to trend down
- Fever resolved
# New-onset afib
- Off antip-coagulation due to GIB.
- declined endoscope, as per GI.
D/W Dr. Sarah Blackman
ID will sign off.
Original Note:
Date of Service
Date of Service: August 02, 2024
Today's Communication
Transition to oral cefuroxime today.
Assessment / Plan
Recurrent fevers, stable
Leukocytosis, improving
- Both noted while on broad antibiotic coverage.
- Possibly from bleeding on heparin gtt for new-onset afib
- Had large black stool, heme+ 07-30-24, H/H trending down since at least 07-29-24.
- Unlikely that this is from an infectious source.
- Has remained afebrile and leukocytosis now improving.
- Continue to trend wbc.
Acute complicated urinary tract infection
Acute right-sided pyelonephritis
Acute urinary retention, Giles status since 07-26-24
- Afebrile and down-trending leukocytosis; vitals stable.
- Switch ceftriaxone to cefuroxime (day 9 of antibiotics).
Atrial fibrillation
- Heparin gtt on hold due to GIB.
#Acute kidney injury, resolved
#Conditions known prior to admission
Dementia
Atrial fibrillation
Essential hypertension
Gastroesophageal reflux disease
Thoracic hemangioma
Degenerative disc disease
Type II diabetes mellitus
Hyperlipidemia
Chief Complaint
-: Fever, Leukocytosis and UTI
Subjective / Review of Systems
Denies complaint.
Vital Signs / Physical Exam
Vital Signs
Vital Signs
Temp Pulse Resp BP Pulse Ox
97.7 F 103 20 122/65 95
08/02/24 07:15 08/02/24 07:44 08/02/24 07:15 08/02/24 07:44 08/02/24 07:15
Physical Exam
Constitutional: Chronically Ill
Cardiovascular: Irregular Rate and S1/S2
Pulmonary: Clear
Gastrointestinal: Soft, Tender (pt grimaces upon palpation of abdomen), Non Distended and Decreased Bowel Sounds
Genito-Urinary: Negative CVA Tenderness
Neurological: Awake
Objective Data
Lab Data
Lab Results
08/02/24 08:17
08/02/24 08:17
APTT 138.2 Sec (23.4-35.0) H 07/30/24 20:28
Estimated Creat Clear 63 ml/min 08/02/24 08:17
Total Bilirubin 0.6 mg/dl (0.2-1.3) 08/01/24 08:14
AST 56 U/L (14-36) H 08/01/24 08:14
ALT 43 U/L (0-35) H 08/01/24 08:14
Alkaline Phosphatase 120 U/L (38-126) 08/01/24 08:14
Most recent labs reviewed.
Micro Results:
07/28/24 20:23 Blood Culture - Preliminary
Blood/Venous No Growth in 4 days- Final report to follow
07/28/24 20:23 Blood Culture - Preliminary
Blood/Venous No Growth in 4 days- Final report to follow
07/25/24 17:47 Urine Culture - Final
Urine Klebsiella pneumoniae
07/26/24 06:31 MRSA Screen - Final
Nose No Methicillin Resistant Staphylococcus aureus isolated.
07/30/24 CT a/p with IV and po contrast: Findings suspicious for right-sided pyelonephritis and cystitis in the appropriate clinical context. Recommend follow-up imaging after treatment to rule out underlying right renal neoplasm. Trace bilateral
pleural effusions.
[2024-08-02 11:20] VITALS: BP 114/62
[2024-08-02] MEDS: PROTONIX 40 MG PO ×2 (11:35→19:04)
[2024-08-02 11:46] LABS: Glucose - Point of Care 157 mg/dl (70-99)
[2024-08-02] MEDS: CEFTIN 500 MG PO ×2 (13:54→19:04)
--- NOTE | 2024-08-02 14:44 | PN.CDI ---
CDI
- -
CDI:
Physician Documentation Request
Admit Date: 07/25/24 21:36
Dear Doctor Do,
Please review the following and provide your response in the progress notes.
Clinical Indicators:
- 07/28 increase in WBC 15.0-22.4
- Intermittent fevers, 07/29 TMax 101.5
- 07/28-08/02 HR 90-100's
- IV abx Cefepime, Ceftriaxone, Flagyl, Zosyn
- 07/28-08/01 7L IVF
- 08/01 PN 'UTI...Urine culture with Klebsiella, leukocytosis worsening despite IV zosyn'
- 08/01 GI 'increased LFT's likely UTI/sepsis/pyelo related'
Please clarify which of the following most accurately describes the status of the patient's infection:
Sepsis due to UTI
Severe Sepsis due to UTI with associated FLORIAN
Localized Infection Only, Without Systemic Illness, UTI
Other
Use of terms such as suspected, likely, concern for, or probable (associated with a specific diagnosis that is being evaluated, monitored, or treated as if it exists) are acceptable and can be coded in the inpatient setting, when documented at the
time of discharge.
Thank you,
Bebe Campos RN
CDI Specialist
Please use your independent medical judgment in providing your response.
[2024-08-02 15:19] VITALS: BP 124/62
--- NOTE | 2024-08-02 16:03 | PTCARENOTE ---
Assumed care of pt from previous nurse. Pt with no noted pain. Pt is on tele running afib. Pt flat, not eating, drinking, taking her meds without issue. Pt call vega is within reach, pt does not ring, rounding in place. will cont to monitor.
[2024-08-02 16:44] LABS: Glucose - Point of Care 135 mg/dl (70-99)
[2024-08-02 21:13] LABS: Glucose - Point of Care 194 mg/dl (70-99)
[2024-08-02 22:43] VITALS: BP 130/62
[2024-08-02] MEDS: FLUSH (NSS) IV ×2 (23:03)
[2024-08-03 06:00] VITALS: BMI 32.0
[2024-08-03 07:19] LABS: Glucose - Point of Care 139 mg/dl (70-99)
[2024-08-03 07:45] VITALS: BP 118/90
[2024-08-03] MEDS: NOVOLOG FLEXPEN-LOW RESISTANCE SC (08:09)
--- NOTE | 2024-08-03 08:30 | PTOTSP ---
Speech Language Pathology
Pt seen for dysphagia tx. Pt accepted liquids. Occasional slight wet vocal quality, but no overt coughing. Trialed yogurt, and pt consumed full cup. Provided regular solid trials, of which pt was accepting. Slightly prolonged mastication noted
with impulsive rate of intake, but was able to clear oral cavity independently. Offered pureed waffle and eggs from breakfast tray, but pt with facial grimacing and refused. Hopeful that upgrade in diet will improve poor appetite. Will monitor
respiratory status.
Recommend:
(1) Upgrade to IDDSI Level 6 (Soft/Bite-Sized) and Thin Liquids
(2) Aspiration precautions: sit upright, full supervision with assist as needed, slow rate, ensure oral cavity clear post P.O. intake
(3) Trial meds whole in puree
(4) ARTIFICIAL STONE SETTER to continue to follow
--- NOTE | 2024-08-03 08:56 | W.PN.HOSP.TC ---
Today's Communication/Plan
-
Discharge to short-term rehab today
Assessment / Plan
Assessment / Plan
78yo F with PMHx of dementia, HLD, GERD brought from facility with worsening confusion, recently found UTI and started on nitrofurantoin. C/O abd discomfort and CT abd showed signs of bladder outlet obstruction and cystitis. Also mild rectal wall
thickening with constipation. Later developed afib with RVR. DUe to persistent fevers and leukocytosis - switched to Zosyn on 07/28/24
As per - for the past 3 weeks patient became more lethargic, stopped going for a food, became incontinent of the urine.
A/P:
#Sepsis secondary to UTI
#Acute metabolic encephalopathy most likely 2/2 UTI
#Urinary retention with bladder outlet obstruction
#Non-obstructive nephrolithiasis
#FLORIAN with unknown Cr baseline and HAGMA
Urology: cont with dean, TOV before d/c if mentation improves
MRI brain neg for stroke, MRA neg for carotid stenosis
Neurology eval: most likely dementia with episodes of delirium as patients mentation fluctuating from very lethargic to wide awake
Urine culture with Klebsiella, leukocytosis worsening despite IV zosyn
Appreciate ID input, antibiotics changed to Rocephin
Status post Rocephin, ID recommends cefuroxime 500mg po bid through 08/07/24
Stable for discharge to short-term rehab today
#Black stools
#Acute blood loss anemia
Hold heparin drip
Appreciate GI input, changed IV Protonix to drip
Hgb 9.4 yesterday, was 9.3, was 12.3 upon admission
Patient's declines EGD/colonoscopy
Permanently stay off anticoagulation
Hemoglobin stable off anticoagulation
#Rectal wall thickening with constipation
As per patient - currently hesitant for colonoscopy
Status post enema
Appreciate GI input, continue laxatives
XR abd on 07/29/24 - no significant stool burden
#Hypophosphatemia
Repleted and resolved
#Hypernatremia
Needs supervised oral fluid intake
Resolved status post D5W
#New onset Afib
Appreciate cardiology input, continue Lopressor and diltiazem for rate control
Discussed with , patient will permanently stay off of anticoagulation
#Hematuria
Resolved
#Dementia, unspecified
#GERD
Continue Pepcid, Seroquel
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
#DJD
#L hemidiaphragm elevation
PCP follow up and monitoring
#DM type 2
HgbA1c 8.3%
Continue SST, carb controlled diet
Started Lantus 10 units daily -continue at the rehab
#Hypokalemia
Repleted and resolved
DVT prophylaxis�SCDs due to black stools
DNR
Updated on phone 08/01
Physical Exam
General: Obese, no acute distress
HEENT: Normocephalic, Atraumatic, EOMI, MMM
Respiratory: Clear to Auscultation bilaterally
Cardiac: Normal S1/S2, irregularly irregular
GI: Soft, Nontender, Nondistended, Normal Bowel Sounds
Extremities: No Clubbing, Cyanosis, or Edema
Neuro: Pleasantly confused
Psych: Calm, Cooperative
Anticipated Discharge: Today
Subjective/Interval History
-
Date of Service: August 03, 2024
No acute changes. No fever, no vomiting.
Objective Data
-
Vital Signs:
Vital Signs
Temp Pulse Resp BP Pulse Ox
98.8 F 113 20 118/90 97
08/03/24 07:45 08/03/24 07:45 08/03/24 07:45 08/03/24 07:45 08/03/24 07:45
I&O
08/02/24 08/03/24 08/04/24
06:59 06:59 06:59
Intake Total 600 / 600 960 / 960
Output Total 750 / 750 300 / 300
Balance -150 / -150 660 / 660
[2024-08-03] MEDS: LANTUS 0.1 UNITS SC (09:21)
[2024-08-03] MEDS: PROTONIX 40 MG PO (09:22)
[2024-08-03] MEDS: CARDIZEM CD 360 MG PO (09:22)
[2024-08-03] MEDS: CEFTIN 500 MG PO (09:22)
[2024-08-03] MEDS: TOPROL XL 100 MG PO (09:22)
--- NOTE | 2024-08-03 11:21 | W.DCSUMMARY ---
Discharge Summary
Discharge Data
Date of Admission: 07/25/24
Date of Discharge: 08/03/24
-
Pending Results: No
Hospital Course
Discharge diagnosis:
Sepsis
Acute urinary tract infection
Acute toxic metabolic encephalopathy
Urinary retention with bladder outlet obstruction
Nonobstructive nephrolithiasis
Acute kidney injury from obstructive uropathy
New onset atrial fibrillation
Black stools
Acute blood loss anemia
Rectal wall thickening with constipation
Hypernatremia
Hypophosphatemia
Hypokalemia
Hematuria
Unspecified dementia
Gastroesophageal reflux disease
Thoracic hemangioma
Type 2 diabetes
Obesity due to excess calories
Consults: Cardiology, GI, urology, ID
Brain MRI:
No acute intracranial abnormality noted.
Global volume loss with sequelae of severe small vessel ischemic disease.
CT abdomen and pelvis:
1. Findings suspicious for right-sided pyelonephritis and cystitis in the appropriate clinical context. Recommend follow-up imaging after treatment to rule out underlying right renal neoplasm.
2. Trace bilateral pleural effusions.
Hospital course:
78-year-old female with a past medical history of dementia, hypertension, hyperlipidemia, diabetes, and obesity was sent from memory care unit for worsening mental status. Patient was admitted for acute toxic metabolic encephalopathy secondary to
sepsis from an urinary tract infection. She was treated with IV Rocephin, then transitioned to Zosyn. Urine cultures grew out Klebsiella, sensitive to Zosyn. Despite being on IV Zosyn, her leukocytosis trended up. Patient was seen in conjunction
with ID. She was then transitioned to cefepime. Repeat CT abdomen and pelvis shows right-sided pyelonephritis and cystitis. ID transitioned her back to Rocephin. Her leukocytosis improved, her fever resolved. ID recommends continuing cefuroxime
500 mg twice a day through 08/07/2024.
Patient had acute kidney injury upon admission, secondary to obstructive uropathy. Her creatinine was 2.8 upon admission. She had urinary retention, requiring a Giles. Her creatinine normalized with Giles insertion. Patient was seen in
conjunction with urology. Since patient has dementia, and is globally weak, her Giles was maintained upon discharge.
Patient's hospital course was complicated by new onset rapid atrial fibrillation. Patient was seen in conjunction with cardiology. She was started on metoprolol, and continued on diltiazem for heart rate control. She was started on IV heparin
drip for anticoagulation. She started to have black stools and acute blood loss anemia. Her IV heparin drip was discontinued.
Patient was seen in conjunction with GI upon admission for constipation. Her constipation resolved with laxatives. GI saw her again for her black stools. Since patient has progressive dementia, does not want endoscopy or colonoscopy.
Risks and benefits of anticoagulation were discussed, and wishes for patient to be off of anticoagulation. Patient's black stools resolved, her hemoglobin remained stable at 9.4 on the day of discharge.
Patient had hypernatremia, this resolved with D5W.
Patient had hypokalemia and hypophosphatemia, this was repleted and resolved.
Patient has dysphagia, and was seen in conjunction with speech therapy. Speech therapy recommends that she be discharged on a soft/bite-size diet.
Patient has type 2 diabetes with hyperglycemia. Her hemoglobin A1c was 8.3. She was started on and will be discharged on Lantus 10 units at bedtime.
Patient's multiple medical conditions have been optimized. She is discharged to short-term rehab. She needs to follow-up with her primary care doctor in 1 week.
Disposition: Short-term rehab
Discharge planning: Required 51 minutes
Discharge Plan
-
Patient Disposition: Group Home/SNF
Discharge Diagnosis/Procedures: Klebsiella complicated urinary tract infection, gastrointestinal bleed from anticoagulation, new onset atrial fibrillation, dementia, hypernatremia, constipation, type 2 diabetes
Condition: Fair
Diet: Diabetic, Carb Controlled and Chop all food
Additional Diets: Soft/bite-size diet
Activity: As tolerated
Blood Work: CBC and BMP on 08/07
Activity Restrictions/Additional Instructions:
Take cefuroxime 500mg po bid through 08/07/24.
Please encourage water intake to prevent high sodium/hypernatremia.
Follow-up with your primary care doctor 1 week after you leave rehab.
Wound Care Instructions Static air overlay or air mattress to bed, air cushion to chair, turning schedule. Limit time in chair to 2 hours with air cushion.
Referrals:
Sobeida Bee MD [Family Provider] - in one week
Prescriptions:
New
polyethylene glycol 3350 [HealthyLax] 17 gram Powder In Packet
17 g PO DAILY Qty: 0 0RF
diltiazem HCl 180 mg Capsule,Extended Release 24hr
360 mg PO DAILY Qty: 0 0RF
metoprolol succinate 100 mg Tablet Extended Release 24 Hr
100 mg PO BID Qty: 0 0RF
pantoprazole 40 mg Tablet,Delayed Release (Dr/Ec)
40 mg PO BID Qty: 0 0RF
cefuroxime axetil 500 mg Tablet
500 mg PO BID 5 Days Qty: 10 0RF
Insulin Glargine Lantus [Lantus] 10 UNITS
Subcutaneous Insulin Syringe [Syringe-Insulin] 0 UNIT
As Directed mls/hr SC DAILY
Ordered By: Markus Blackman MD
Last Taken: 08/03/24 09:21 0.1 mls
Continued
atorvastatin 20 mg tablet
20 mg PO DAILY
famotidine 40 mg tablet
40 mg PO DAILY
Discontinued
quetiapine 25 mg tablet
25 mg PO BID
diltiazem HCl 240 mg capsule,extended release 24hr
240 mg PO DAILY
bisoprolol-hydrochlorothiazide 5-6.25 mg tablet
1 tab PO DAILY
nitrofurantoin macrocrystal 100 mg capsule
100 mg PO BID
Discharge Orders:
Discharge Patient (As Directed); Ordered 08/03/24
Ordered By: Markus Blackman
Discharge Date and Time
Discharge Date/Time: 08/03/24 15:11
Print Language: ALBANIAN
[2024-08-03 11:39] LABS: Glucose - Point of Care 191 mg/dl (70-99)
--- NOTE | 2024-08-03 11:53 | CM ---
senior software engineering manager reviewed patient's chart and spoke with physician and patient has been cleared for discharge today. Daniel will need COVID testing completed, physician is aware. Ambulance picked edge sewing machine operator is 4pm.
Qing López
Report [phone]

Plan; Qing López skilled today.
[2024-08-03] MEDS: NOVOLOG FLEXPEN-LOW RESISTANCE 1 UNITS SC (12:38)
[2024-08-03 13:10] VITALS: BP 126/64
[2024-08-03 14:31] LABS: COVID-19 Antigen Negative (Negative)
== END 2024-08-03 15:11 | DRG 871 ==
LOC: 4 WEST ACU 21:36
PROVIDERS: Internal Medicine; Nurse Practitioner Family; Student in an Organized Health Care Education/Training Program; ADMITTING PHYSICIAN Internal Medicine; ATTENDING PHYSICIAN Family Medicine; CONSULT PHYSICIAN Internal Medicine Cardiovascular Disease; CONSULT PHYSICIAN Internal Medicine Gastroenterology; CONSULT PHYSICIAN Internal Medicine Infectious Disease; CONSULT PHYSICIAN Psychiatry & Neurology Neurology; CONSULT PHYSICIAN Surgery; EMERGENCY PHYSICIAN Emergency Medicine; FAMILY PHYSICIAN Internal Medicine Geriatric Medicine
DX: A41.9 Sepsis, unspecified organism (principal); G93.41 Metabolic encephalopathy; D62 Acute posthemorrhagic anemia; D68.32 Hemorrhagic disorder due to extrinsic circulating anticoagulants; E87.0 Hyperosmolality and hypernatremia; E87.20 Acidosis, unspecified; N12 Tubulo-interstitial nephritis, not specified as acute or chronic; N17.8 Other acute kidney failure; F03.A4 Unspecified dementia, mild, with anxiety; Z66 Do not resuscitate; K92.2 Gastrointestinal hemorrhage, unspecified; E11.65 Type 2 diabetes mellitus with hyperglycemia; I10 Essential (primary) hypertension; E66.09 Other obesity due to excess calories; Z68.32 Body mass index [BMI] 32.0-32.9, adult; E83.39 Other disorders of phosphorus metabolism; B96.1 Klebsiella pneumoniae [K. pneumoniae] as the cause of diseases classified elsewhere; N13.9 Obstructive and reflux uropathy, unspecified; T45.515A Adverse effect of anticoagulants, initial encounter; D18.09 Hemangioma of other sites; E78.00 Pure hypercholesterolemia, unspecified; E87.6 Hypokalemia; I48.91 Unspecified atrial fibrillation; K21.9 Gastro-esophageal reflux disease without esophagitis; K56.41 Fecal impaction; M19.90 Unspecified osteoarthritis, unspecified site; M48.00 Spinal stenosis, site unspecified; N30.90 Cystitis, unspecified without hematuria; N20.0 Calculus of kidney; N32.0 Bladder-neck obstruction; N32.89 Other specified disorders of bladder; R13.10 Dysphagia, unspecified; Z74.01 Bed confinement status; Z79.899 Other long term (current) drug therapy
CPT/HCPCS: 51701; 70450; 70544; 70548; 70553; 71045; 74018; 74176; 74177; 80048; 80053; 80061; 81003; 81015; 82248; 82550; 82962; 83036; 83735; 84100; 84439; 84443; 85014; 85018; 85025; 85027; 85730; 87040; 87070; 87077; 87086; 87186; 87811; 92526; 92610; 93005; 93306; 95816; 96365; 97163; 97167; 97530; 97535; 99291; A9585; Q9967

== ENCOUNTER 2024-08-18 15:20 | Inpatient (IN) | payer MEDICARE, OTHER, SELFPAY ==
[2024-08-18 09:48] VITALS: BP 115/61
--- NOTE | 2024-08-18 10:20 | ED.GENMED ---
History of Present Illness
General
Chief Complaint: Urinary Symptoms
Source: ambulance crew and halfway
Exam Limitations: dementia
Time Seen by Provider: 08/18/24 10:03
Nursing documentation reviewed up to this point in time: agreed with
History of Present Illness
History of Present Illness:
78 yr old female sent by [facility] for eval. Pt had dean removed on 08/15 and staff was not able to insert dean today. RN in ER reports bladder scan for 444ml of urine.
Pt arrives awake alert pleasantly confused able to state her first name only.
Past History
Past History
ED Past Medical History: Hypercholesterolemia and Other (Dementia hypertension left artificial knee hyperlipidemia osteoarthritis anxiety spinal stenosis)
ED Past Surgical History: Orthopedic
Social History
Tobacco: Non-smoker
Alcohol: None
Drug: None
Personal:
Living: halfway
Employment: Retired
Review of Systems
Review of Systems
Allergies reviewed?: Yes
Unable to obtain full review of systems at this time due to: dementia
Other source history: family and halfway
All Other Systems: ROS reviewed and negative except as documented in HPI and ROS
Neurological: Reports other (Family reports more confused than normal)
Phy Exam
General Physical Exam
General Presentation: no apparent distress
General age: appears stated age
General Skin: warm and dry
General Habitus: elderly
General Mental: confused
General Hydration: dry mucous membranes
Cardiovascular Exam
Cardiovascular Exam: regular rate/rhythm, no murmur and normal peripheral pulses
Pulmonary Exam
Pulmonary Exam: lungs clear and no respiratory distress
Genitourinary Exam Female
Exam Female: other (Dean catheter in place draining cloudy yellow urine)
Neurological Exam
Neurological Exam: other (eyes open able to state name )
Musculoskeletal Exam
Musculoskeletal Exam: full ROM
Skin Exam
Skin Exam: normal color and warm/dry
Course
Orders/Labs/Results
Orders:
Orders
08/18/24 Breakfast
1800 calorie (15 carb) Diabetic
08/18/24 10:31
Dean Placement- Treatment ONCE
Reason for insertion: Acute Retention
IV Insert/Care/Rem.- Treatment PRN
08/18/24 11:33
Urinalysis Reflex To Culture Urgent
Date Specimen was Collected: 08/18/24
Time Specimen was Collected: 10:32
Urine Microscopic Reflex Cult Urgent
Urine Culture Urgent
JAYLENE Source: U
Specimen Description:
Date Specimen was Collected: 08/18/24
Time Specimen was Collected: 10:32
08/18/24 11:43
Basic Metabolic Panel Urgent
Complete Blood Count/With Diff Urgent
08/18/24 14:31
Lactic Acid Urgent
Potassium Urgent
08/18/24 14:34
EKG [Electrocardiogram (*1)] Stat
Reason for Study: Atrial Fibrillation
08/18/24 14:54
Admit/Transfer Patient As Directed
Co-Sign Provider:
Level of Care: Inpatient admission
Assign to:: Telemetry
Physician / Group: lorena
Diagnosis: UTi
Reason for Telemetry: Arrhythmia
Date to Stop Telemetry: 08/21/24
Time to Stop Telemetry: 11:00
Reason for Hospitalization: UTI
Expected length of stay greater than two midnights?: Yes
ELOS- Estimated Length of Stay in days: 3
I certify the patient meets the requirements for IP care: Yes
08/18/24 14:55
PRN Pain Medication Management As Directed
May give lesser potent ordered pain med per pt: Yes
preference::
Protocol:: Medication orders for pain may be administered in a
manner that supports deferring to patient preference
when the pt is:
- Requesting an ordered lesser potent pain medication.
Least to most potent pain medications are defined
as: acetaminophen < NSAID < tramadol < opioids
(morphine, oxycodone, hydromorphone).
- Requesting a lesser dose of the same medication IF
ORDERED.
- Requesting a less intrusive route of administration
if both routes are prescribed by the provider (PO <
IV).
08/18/24 14:56
Code Status As Directed
Resuscitation Status: Do not resuscitate
Reached after discussion with pt or family/Healthcare POA: Yes
DNR Bracelet Application ONCE
08/18/24 14:58
CefTRIAXone [Rocephin] 1,000 mg IV NOW STA
08/18/24 15:01
Sterile Water [Sterile Water For Injection] 10 ml IV NOW STA
08/18/24 15:06
UROLOGY CONSULT Routine
Consulting Provider: Greg Chahal Jr.
Was physician already notified: Yes
08/21/24 11:00
DC Protocol for Telemetry ONCE
Abnormal Lab Results
08/18/24 08/18/24
11:33 11:43
WBC 11.7 H 10^3/uL
(4.8-10.8)
RBC 3.74 L 10^6/uL
(4.20-5.40)
Hgb 11.0 L g/dL
(12.0-16.0)
Hct 34.0 L %
(37.0-47.0)
MCHC 32.4 L g/dL
(33.0-37.0)
Abs Immat Gran (auto) 0.1 H 10^3/uL
(0-0.05)
Absolute Neuts (auto) 8.0 H 10^3/uL
(1.4-6.5)
Absolute Monos (auto) 0.7 H 10^3/uL
(0.1-0.6)
Glucose 132 H mg/dl
(70-99)
Ur Occult Blood Reflex 3+ A
(Negative)
Leukocyte Esterase Rfl 2+ A
(Negative)
Urine RBC 7-10 A /HPF
(0-2)
Urine WBC (Reflex) >100 A /HPF
(0-5)
Urine Bacteria (Reflex) Moderate A
(Negative)
Urine Albumin (Reflex) 2+ A
(Neg - Trace)
08/18/24 11:43
08/18/24 14:31
Vital Signs
Initial and Last Documented VS:
Initial Vital Signs
Temp Pulse Resp BP Pulse Ox
97.8 F 99 18 115/61 97
08/18/24 09:48 08/18/24 09:48 08/18/24 09:48 08/18/24 09:48 08/18/24 09:48
Last Documented Vital Signs
Temp Pulse Resp BP Pulse Ox
97.8 F 66 18 115/61 94
08/18/24 09:48 08/18/24 12:00 08/18/24 09:48 08/18/24 09:48 08/18/24 10:00
MDM/Problems Addressed
Differential Diagnosis Includes:
Not limited to retention UTI
MDM/Problems Addressed:
Patient is an 6-year-old female sent from [facility] for evaluation. Staff was trying to insert Dean and had difficulty. Upon presentation RN in the ER BladderScan patient for 444 mL of urine Dean catheter was inserted with cloudy
thick urine return. Urinalysis does show obvious infection. Patient will tell me her name but nothing else. now at bedside reports he saw patient last night she was eating and more alert than she has now and he reports she is definitely
more confused. Will admit for IV antibiotics.
Review medical records patient was just admitted July 25 and discharged August 03 for UTI with acute toxic metabolic encephalopathy. She did have acute kidney injury from obstructive uropathy at that time. CAT scan was done at that time
which showed suspicious findings of right-sided pyelonephritis and cystitis. Today patient's creatinine is normal at 0.8 with a BUN of 10 potassium is clotted will recheck sodium normal; patient is afebrile however white count elevated 11.7
*Pulse Oximetry
Patient hypoxic: no
*Critical Care Note
Total Time (30-74mins, 75-104mins- exclusive of procedures): Not Applicable
Data Reviewed
Review of Other/Old Records Reveals: Other (prior labd/ct and discharge summary reviewed )
ED Attending Note
-
Portions of this chart may have been created with voice recognition software.� Occasional wrong word or��sound alike� substitutions may have occurred due to the inherent limitations of voice recognition software.
Discharge Plan
Departure
Patient Disposition: Admit
Date of Disposition: 08/18/24
Time of Disposition: 14:15
Admit to: Med/Surg
Admit to doctor: hospitalist
Presentation/result/management discussed w/ accepting MD/DO: Hospitalist
Patient with high blood pressure during this ER visit?: No
Condition: Fair
Covid-19: Not Applicable
Discharge Problem:
Acute UTI
Interventions
Interventions:
*Risk Screen - Suicide Last Done: 08/18/24 10:23
*General Assessment Last Done: 08/18/24 10:23
*Neglect/Abuse Screening Last Done: 08/18/24 10:23
*ED COVID-19 Vaccine History Last Done: 08/18/24 10:23
ED-Female Genitourinary Assessment Last Done: 08/18/24 10:26
[2024-08-18 11:52] LABS: % Basophils 0.7 % (0-2); % Eosinophils 1.8 % (0-6); % Immature Granulocytes 0.5 % (0-0.5); % Lymphocytes 22.8 % (20.5-51.1); % Monocytes 6.2 % (1.7-9.3); Absolute Basophils 0.1 10^3/uL (0-0.2); Absolute Eosinophils 0.2 10^3/uL (0-0.7); Absolute Immature Granulocytes 0.1 10^3/uL (0-0.05); Absolute Lymphocytes 2.7 10^3/uL (1.2-3.4); Absolute Monocytes 0.7 10^3/uL (0.1-0.6); Mean Corp Hgb Conc. 32.4 g/dL (33.0-37.0); Mean Corpuscular Hgb 29.4 pg (27.0-31.0); Mean Corpuscular Volume 90.9 fL (81.0-99.0); Mean Platelet Volume 9.8 fL (7.4-10.4); Nucleated Red Blood Cells % 0 %; Platelet Count 323 10^3/uL (130-400); Red Blood Cell Count 3.74 10^6/uL (4.20-5.40); Red Cell Dist. Width 13.2 % (11.5-14.5); White Blood Cell Count 11.7 10^3/uL (4.8-10.8)
[2024-08-18 11:55] LABS: Urine Albumin 2+ (Neg - Trace); Urine Bilirubin Negative (Negative); Urine Character Clear (Clear); Urine Color Yellow; Urine Glucose Negative (Negative); Urine Ketone Negative (Negative); Urine Leukocyte 2+ (Negative); Urine Nitrite Negative (Negative); Urine Occult Blood 3+ (Negative); Urine Urobilinogen Negative (Neg - 1+)
[2024-08-18 12:08] LABS: Urine Squamous Cell 0-2 /LPF (Few)
[2024-08-18 12:09] LABS: Urine Bacteria Moderate (Negative); Urine White Cell >100 /HPF (0-5)
[2024-08-18 12:22] LABS: Blood Urea Nitrogen 10 mg/dl (7-17); Calcium 8.9 mg/dl (8.4-10.2); Carbon Dioxide 25 mmol/L (22-30); Chloride 103 mmol/L (98-107); Glucose 132 mg/dl (70-99); Sodium 136 mmol/L (135-145); eGFR > 60.00
--- NOTE | 2024-08-18 14:31 | HPS.HSE ---
Addendum entered and electronically signed by Marcellus Slater DO 08/18/24 15:12:
Patient seen and examined independently. Agree with findings and plan as set forth by COLIN Goetz.
Patient is an 78y F with PMH significant for hypertension, A-Fib, dementia and recent hospitalization for urinary retention and UTI. Patient left with Giles and PO abx on 08/03. Abx completed on 08/08. Giles was removed on 08/15 for voiding trial
and patient has not been able to void well since. NH attempted to replace Giles today without success so patient sent to the ED. In the ED, Giles placed for grossly purulent urine.
Ass:
Urinary Retention - Recurrent
UTI secondary to the above
Paroxysmal Atrial Fibrillation
Senile Dementia
GERD
DM-II
Plan:
Admit for further evaluation and treatment.
Maintain Giles.
IV abx for UTI pending repeat culture data.
Trial of tamsulosin for now.
Urology evaluation for additional recommendations.
Continue other usual OP medications.
Original Note:
Family Physician
-
Family Physician: Sobeida Bee
Chief Complaint
-
patient unable to void
History of Present Illness
78 year old with PMH for hyperlipidemia, dementia, hypertension, A-fib, urinary tract infection presented to us as patient feels void trial at [facility]. Giles was removed on 08/15. Patient was not making enough urine output. Today had bladder
scan showed greater than 400. Staff at [facility] were not able to place Giles in. Patient has a history for dementia. She is awake alert oriented to herself only patient denied any headache, dizziness.. Patient denied any fever, chills,
chest pain, short of breath. Patient denied any abdominal pain, nausea, vomiting or diarrhea.
Positive urinalysis. Giles placed in ER. Admitting for further management
Medical History
Past Medical History
Past Medical History: Reports None and Other
Additional Past Medical History:
atrial fib
GERD
Dementia
Past Surgical History: Reports None
Social History
Tobacco: Non-smoker
Alcohol: None
Drug: None
Personal:
Living: Assisted Living
Family History
Family History: Not pertinent
Allergies / Home Medications
Allergies reflects when Allergies were last updated in [employer].
Home Medications with original date entered in [employer]
Allergy/Medication List:
Allergies
Allergy/AdvReac Type Severity Reaction Status Date / Time
No Known Allergies Allergy Unverified 07/25/24 19:47
Home Medications
metoprolol succinate 100 mg tablet,extended release 24 hr 100 mg PO BID #0 tabs 08/03/24
pantoprazole 40 mg tablet,delayed release 40 mg PO BID #0 tabs 08/03/24
polyethylene glycol 3350 17 gram oral powder packet (HealthyLax) 17 g PO DAILY #0 ea 08/03/24
acetaminophen 325 mg tablet (Tylenol) 650 mg PO Q6HPRN PRN mild pain/fever>100 08/18/24
diltiazem HCl 360 mg capsule,24 hr,extended release 360 mg PO DAILY 08/18/24
dimethicone 1 %-zinc oxide 10 %-vit A and D-aloe vera topical cream (Zinc Oxide Diaper Cream) 1 applic topical BID sacrum 08/18/24
quetiapine 25 mg tablet 25 mg PO TID 08/18/24
sennosides 8.6 mg-docusate sodium 50 mg tablet (Senna-S) 1 tab-cap PO BIDPRN PRN constipation 08/18/24
zinc oxide-vitamin B5-vit E 11.3% topical cream (Balmex Adult Care) 1 applic topical BID buttocks 08/18/24
Review of Systems
-
Constitutional: Reports No Symptoms
EENT: Reports No Symptoms
Respiratory: Reports No Symptoms
Cardiac: Reports No Symptoms
Abdomen/GI: Reports No Symptoms
: Reports No Symptoms
Musculoskeletal: Reports No Symptoms
Skin: Reports No Symptoms
Neurological: Reports No Symptoms
Endocrine: Reports No Symptoms
Hematologic/Lymphatic: Reports No Symptoms
Psych: Reports No Symptoms
Physical Exam
Vital Signs
Vital Signs
Temp Pulse Resp BP Pulse Ox
97.8 F 66 18 115/61 94
08/18/24 09:48 08/18/24 12:00 08/18/24 09:48 08/18/24 09:48 08/18/24 10:00
Physical Exam
General: Well Developed, Well Nourished and No Apparent Distress
HEENT: NormoCephalic, Moist mucous membranes and Atraumatic
Respiratory: Clear
Cardiac: S1/S2 and Regular Rhythm; No Murmur or Rub
GI: Soft, Non Tender, Non Distended and Normal Bowel Sounds; No Organomegaly
Rectal: Deferred by Provider
Musculoskeletal: No Clubbing, No Cyanosis and No Edema
Skin: No Rash
Neuro: Nonfocal/grossly intact
Psych: Calm and Confused
Laboratory Results
-
08/18/24 11:43
Laboratory Results
Total Bilirubin Cancelled 08/18/24 11:43
AST Cancelled 08/18/24 11:43
ALT Cancelled 08/18/24 11:43
Alkaline Phosphatase Cancelled 08/18/24 11:43
Data Reviewed
-
Lab Data: Labs Reviewed by me
Impression/Plan
-
# Urinary tract infection/urinary retention
-WBC 11.7
-Giles inserted in the ER
-IV ceftriaxone continued
-Tylenol as needed for fever
# Paroxysmal A-fib
-Obtain EKG
-Diltiazem and metoprolol continued
#Dementia, unspecified
-Seroquel continued
#GERD
Continue pantoprazole
# DVT prophylaxis
-Lovenox subcu
# CODE STATUS
-DNR
[2024-08-18 14:56] LABS: Potassium 4.4 mmol/L (3.5-5.1)
[2024-08-18 14:59] LABS: Lactic Acid 1.2 mmol/L (0.7-2.0)
[2024-08-18] MEDS: ROCEPHIN 1000 MG IV (15:47)
[2024-08-18] MEDS: STERILE WATER FOR INJECTION 10 ML IV (15:47)
[2024-08-18 16:11] VITALS: BP 106/69
[2024-08-18 17:15] VITALS: BP 104/54
[2024-08-18 17:26] LABS: Glucose - Point of Care 123 mg/dl (70-99)
[2024-08-18 17:42] VITALS: BMI 27.7
[2024-08-18 17:44] VITALS: BP 104/54
--- NOTE | 2024-08-18 17:54 | PTCARENOTE ---
Received pt from ED via stretcher. Pt unable to assist with transfer. Pt max assist float remover to bed. Oriented to self only, baseline as per spouse due to PMH advanced dementia. VSS. bed in low position bed alarm on. call vega within reach. All
orders acknowledged and reviewed with patient and spouse.
[2024-08-18] MEDS: NOVOLOG FLEXPEN-LOW RESISTANCE SC (17:58)
[2024-08-18] MEDS: LOVENOX 40 MG SC (18:00)
[2024-08-18] MEDS: SEROQUEL 25 MG PO ×2 (18:00→21:50)
[2024-08-18 19:09] VITALS: BP 101/54
[2024-08-18 21:28] LABS: Glucose - Point of Care 170 mg/dl (70-99)
[2024-08-18] MEDS: TRIPLE PASTE 1 APPLIC TOPICAL (21:49)
[2024-08-18] MEDS: TOPROL XL 100 MG PO (21:49)
[2024-08-18] MEDS: PROTONIX 40 MG PO (21:49)
[2024-08-18] MEDS: BALMEX CREAM 1 APPLIC TOPICAL (21:49)
[2024-08-18] MEDS: TYLENOL 650 MG PO (21:51)
[2024-08-18 23:15] VITALS: BP 90/56
[2024-08-19] VITALS (7 sets, daily range): BP systolic 109–124; BP diastolic 49–69; PULSE 63; O2SAT 95
--- NOTE | 2024-08-19 08:27 | W.PN.HOSP.TC ---
Today's Communication/Plan
-
Continue Rocephin and Ampicillin
Follow urine cultures
Diltiazem changed to 60 mg QID given tele pauses, appreciate cardiology
Assessment / Plan
Assessment / Plan
Physical Exam
General: Well Developed, Well Nourished and No Apparent Distress
HEENT: Normocephalic, Moist mucous membranes and Atraumatic
Respiratory: Clear
Cardiac: S1/S2 and Irregular Rhythm
GI: Soft, Non Tender, Non Distended and Normal Bowel Sounds
Musculoskeletal: No Cyanosis and No Edema
Skin: No Rash
Neuro: Nonfocal/grossly intact
Psych: Calm and Confused
Assessment/Plan
78 y/o female with past medical history significant for hypertension, A-Fib, dementia and recent hospitalization for urinary retention and UTI. Patient left with Giles and PO abx on 08/03. Abx completed on 08/08. Giles was removed on 08/15 for
voiding trial and patient has not been able to void well since. NH attempted to replace Giles today without success so patient sent to the ED. In the ED, Giles placed for grossly purulent urine.
# Urinary tract infection/urinary retention\\
# History of Klebsiella Pneumoniae in the urine
-Failed Trial of Void of Giles Catheter outpatient
-Bethanechol added and when patient is discharged, she will need to be discharged with Giles catheter as per urology, appreciate urology
-WBC 11.7 on admission
-Giles inserted in the ER
-IV ceftriaxone continued
-Added IV Ampicillin given preliminary urine culture is showing Enterococcus
-Follow urine cultures
-Tylenol as needed for fever
#Pauses on Telemetry on 08/19/24, some greater than 2 seconds long
#Paroxysmal A-fib
-Diltiazem and metoprolol --> although, due to patient's telemetry pauses, Diltiazem has been reduced to 60 mg QID starting on 08/20/24 after discussion with cardiology on 08/19
-Okay to continue beta tk
-Appreciate cardiology evaluation
#Type 2 DM
-Insulin Sliding Scale and monitor blood sugars
#Dementia, unspecified
-Seroquel continued
#GERD
Continue pantoprazole
# DVT prophylaxis
-Lovenox subcu
# CODE STATUS
-DNR
Anticipated Discharge: 24 - 48 hours
Subjective/Interval History
-
Date of Service: August 19, 2024
Patient was seen and examined. She reported feeling a little better than when she came in.
Objective Data
-
Labs:
Laboratory Results
08/19/24
08:02
WBC Pending
Hgb Pending
Hct Pending
Plt Count Pending
Sodium Pending
Potassium Pending
Chloride Pending
Carbon Dioxide Pending
BUN Pending
Creatinine Pending
Glucose Pending
Calcium Pending
Vital Signs:
Vital Signs
Temp Pulse Resp BP Pulse Ox
97.5 F 86 18 112/69 95
08/19/24 03:25 08/19/24 03:25 08/19/24 03:25 08/19/24 03:25 08/19/24 03:25
I&O
08/18/24 08/19/24 08/20/24
06:59 06:59 06:59
Intake Total 300 / 300
Output Total 300 / 300
Balance 0 / 0
[2024-08-19 08:30] LABS: Hematocrit 32.9 % (37.0-47.0); Hemoglobin 10.8 g/dL (12.0-16.0); Mean Corp Hgb Conc. 32.8 g/dL (33.0-37.0); Mean Corpuscular Hgb 30.5 pg (27.0-31.0); Mean Corpuscular Volume 92.9 fL (81.0-99.0); Mean Platelet Volume 10.1 fL (7.4-10.4); Platelet Count 254 10^3/uL (130-400); Red Blood Cell Count 3.54 10^6/uL (4.20-5.40); Red Cell Dist. Width 13.2 % (11.5-14.5); White Blood Cell Count 7.5 10^3/uL (4.8-10.8)
[2024-08-19 08:38] LABS: Glucose - Point of Care 120 mg/dl (70-99)
[2024-08-19 08:47] LABS: Blood Urea Nitrogen 9 mg/dl (7-17); Calcium 8.8 mg/dl (8.4-10.2); Carbon Dioxide 24 mmol/L (22-30); Chloride 105 mmol/L (98-107); Estimated Creatinine Clearance 71 ml/min; Glucose 114 mg/dl (70-99); Potassium 4.2 mmol/L (3.5-5.1); Sodium 139 mmol/L (135-145); eGFR > 60.00
[2024-08-19] MEDS: NOVOLOG FLEXPEN-LOW RESISTANCE SC ×3 (09:03→16:27)
[2024-08-19] MEDS: FLOMAX 0.4 MG PO (09:07)
[2024-08-19] MEDS: MIRALAX 17 GRAMS PO (09:07)
[2024-08-19] MEDS: CARDIZEM CD 360 MG PO (09:07)
[2024-08-19] MEDS: PROTONIX 40 MG PO ×2 (09:07→22:11)
[2024-08-19] MEDS: SEROQUEL 25 MG PO ×3 (09:08→22:11)
[2024-08-19] MEDS: TOPROL XL 100 MG PO ×2 (09:08→22:12)
[2024-08-19] MEDS: TRIPLE PASTE 1 APPLIC TOPICAL ×2 (09:09→22:12)
[2024-08-19] MEDS: BALMEX CREAM 1 APPLIC TOPICAL ×2 (09:09→22:12)
--- NOTE | 2024-08-19 09:54 | CON.MD ---
Consultation - Medical
-
see dictated note
pt admitted beginning of jul with retention and UTI
dean placed- infx treated
ct showed mild findings c/w cystitis and possible pyelo
discharged back to [facility]- at some point dean was removed
low urine output noted- facility unable to replace dean
sent back to ER- dean placed- urine appeared infected- readmitted
pt can not provide any sig hx
old notes and studies reviewed
urine yellow with some sediment
plan
continue dean
treat UTI
start bethanechol
will need to be discharged with dean and scheduling of outpt f/u to discuss next steps/timing of repeat TOV
[2024-08-19 12:22] LABS: Glucose - Point of Care 172 mg/dl (70-99)
[2024-08-19] MEDS: ROCEPHIN 1000 MG IV (15:54)
[2024-08-19] MEDS: STERILE WATER FOR INJECTION 10 ML IV (15:55)
[2024-08-19 16:23] LABS: Glucose - Point of Care 126 mg/dl (70-99)
--- NOTE | 2024-08-19 16:31 | CM ---
Confused dementia patient who lives with her David at [facility].She is assisted all activates of daily living.She uses a walker.LM with David no call back.Spoke with Clare aleksandra she said that their is a meeting at [facility]
on Tuesday to review hospice.
No VN in past . [facility] hx
Pharmacy [facility]
PCP Dr Ngo
PLAN TBD [facility]
[2024-08-19] MEDS: LOVENOX 40 MG SC (16:54)
[2024-08-19] MEDS: AMPICILLIN 108 MG IV ×2 (16:54→22:11)
[2024-08-19 21:20] LABS: Glucose - Point of Care 129 mg/dl (70-99)
[2024-08-20 03:48] VITALS: BP 106/53
[2024-08-20] MEDS: AMPICILLIN 108 MG IV ×4 (04:58→21:18)
--- NOTE | 2024-08-20 06:46 | W.PN.URO.CBU ---
Today's Communication / Plan
-
continue dean and antibiotics
Assessment / Plan
-
enterococcal UTI
urinary retention- recurrent
treat UTI- awaiting sensitivities
continue dean- on bethanechol
will need outpt f/u for assessment of repeat voiding trial
Diagnosis
-
Date of Service: August 20, 2024
-
Patient Diagnosis:
urinary retention
UTI
Subjective
-
pt resting
no complaints
Objective
-
Vital Signs
Temp Pulse Resp BP Pulse Ox
98.1 F 80 18 106/53 95
08/20/24 03:48 08/20/24 03:48 08/20/24 03:48 08/20/24 03:48 08/20/24 03:48
Intake and Output
08/18/24 08/19/24 08/20/24
06:59 06:59 06:59
Intake Total 300 / 300 620 / 620
Output Total 300 / 300 350 / 350
Balance 0 / 0 270 / 270
Intake:
Oral fluids 300 / 300 420 / 420
IV piggybacks 200 / 200
Output:
Urine, Dean 300 / 300 350 / 350
Physical Exam
-
General - no acute distress
Abdomen - soft, non-tender
Genitalia - dean in place- urine clear
[2024-08-20 08:00] VITALS: BP 107/75
[2024-08-20 08:00] LABS: Hematocrit 31.1 % (37.0-47.0); Mean Corp Hgb Conc. 32.2 g/dL (33.0-37.0); Mean Corpuscular Hgb 30.2 pg (27.0-31.0); Mean Platelet Volume 10.1 fL (7.4-10.4); Platelet Count 247 10^3/uL (130-400); Red Blood Cell Count 3.31 10^6/uL (4.20-5.40); Red Cell Dist. Width 13.2 % (11.5-14.5); White Blood Cell Count 8.4 10^3/uL (4.8-10.8)
[2024-08-20 08:07] LABS: Glucose - Point of Care 114 mg/dl (70-99)
[2024-08-20 08:26] LABS: Blood Urea Nitrogen 8 mg/dl (7-17); Calcium 8.7 mg/dl (8.4-10.2); Carbon Dioxide 24 mmol/L (22-30); Chloride 107 mmol/L (98-107); Estimated Creatinine Clearance 61 ml/min; Glucose 117 mg/dl (70-99); Potassium 4.2 mmol/L (3.5-5.1); Sodium 140 mmol/L (135-145); eGFR > 60.00
[2024-08-20] MEDS: NOVOLOG FLEXPEN-LOW RESISTANCE SC ×2 (09:33→17:12)
[2024-08-20] MEDS: TOPROL XL PO (09:34)
[2024-08-20] MEDS: FLUSH (NSS) 1 FLUSH IV (09:35)
[2024-08-20] MEDS: CARDIZEM 60 MG PO (09:37)
[2024-08-20] MEDS: PROTONIX 40 MG PO ×2 (09:38→20:04)
[2024-08-20] MEDS: MIRALAX 17 GRAMS PO (09:38)
[2024-08-20] MEDS: FLOMAX 0.4 MG PO (09:38)
[2024-08-20] MEDS: SEROQUEL 25 MG PO ×3 (09:43→21:18)
[2024-08-20] MEDS: BALMEX CREAM 1 APPLIC TOPICAL ×2 (09:47→20:05)
[2024-08-20] MEDS: TRIPLE PASTE 1 APPLIC TOPICAL ×2 (09:47→20:05)
--- NOTE | 2024-08-20 10:22 | CON.CAR ---
Addendum entered and electronically signed by Jorge Majano MD 08/20/24 12:31:
I saw and examined the patient.
The [employer]'s note was reviewed and I agree with the note.
Comment: AFib can be termed persistent but with no sinus seen (so far) and no plans to restore sinu/pursue rhythm control we can accept permanent AFib. There are no significant pause in chart on paper or on my review of telemetry (none more than 2
sec on my review).
No change in meds. If condition changes and rate slows I would decrease the dose of the Dilt.
Cardiology will sign off.
Original Note:
Consultation
Consultation Request
Date/Time Consultation Requested: 08/19/2024 15:30
Date/Time Consultation Performed: 08/20/2024 09:50
Requesting Provider: Dr. Graves
Performing Provider: COLIN Osorio for Dr. Majano
Reason for Consultation: Pauses on telemetry
Medical History
-
Chief Complaint: Unable to void
History of Present Illness:
Maggie Wilson is an 78-year-old female with hypertension, dyslipidemia, type 2 diabetes mellitus, hemangioma T9 and T11, and dementia who presented to the emergency department 07/25/2024 with a chief complaint of being unable to void. She had a
Giles catheter prior to her last admission. It was discontinued 08/15/2024. Staff at her facility was unable to insert a Giles. Bladder scan in the ER showed greater than 400 mL. A Giles catheter was placed. She was diagnosed with UTI.
Cardiology was consulted for pauses on telemetry. Telemetry reviewed does not show any pauses greater than 3 seconds. She is demented but is oriented to herself. She is currently pleasant.
Past Medical History
Past Medical History: Arrhythmias (persistent atrial fibrillation), GERD, HTN, Hypercholesterolemia and NIDDM
Social History
Tobacco: Non-Smoker
Alcohol: None
Drug: None
Personal:
Living: Detention ([facility] [memory care])
Employment: Retired
Family History
Family History: Unable to Obtain
Allergies / Home Medications
Allergy/AdvReac Type Severity Reaction Status Date / Time
No Known Allergies Allergy Unverified 07/25/24 19:47
�Medication �Instructions �Recorded �Confirmed �Type
metoprolol succinate 100 mg 100 mg PO BID #0 tabs 08/03/24 08/18/24 Rx
tablet,extended release 24 hr
pantoprazole 40 mg tablet,delayed 40 mg PO BID #0 tabs 08/03/24 08/18/24 Rx
release
polyethylene glycol 3350 17 gram 17 g PO DAILY #0 ea 08/03/24 08/18/24 Rx
oral powder packet (HealthyLax)
acetaminophen 325 mg tablet 650 mg PO Q6HPRN PRN mild 08/18/24 08/18/24 History
(Tylenol) pain/fever>100
diltiazem HCl 360 mg capsule,24 360 mg PO DAILY Blood Pressure 08/18/24 08/18/24 History
hr,extended release
dimethicone 1 %-zinc oxide 10 1 applic topical BID sacrum 08/18/24 08/18/24 History
%-vit A and D-aloe vera topical
cream (Zinc Oxide Diaper Cream)
quetiapine 25 mg tablet 25 mg PO TID Mental Health/Anxiety 08/18/24 08/18/24 History
sennosides 8.6 mg-docusate sodium 1 tab-cap PO BIDPRN PRN 08/18/24 08/18/24 History
50 mg tablet (Senna-S) constipation
zinc oxide-vitamin B5-vit E 11.3% 1 applic topical BID buttocks 08/18/24 08/18/24 History
topical cream (Balmex [facility])
Review of Systems
-
Unable to obtain full review of systems at this time due to: Dementia
Physical Exam
Vital Signs
Temp Pulse Resp BP Pulse Ox
98.5 F 90 16 107/75 95
08/20/24 08:00 08/20/24 08:00 08/20/24 08:00 08/20/24 09:34 08/20/24 08:00
Lab Results
08/20/24 06:45
08/20/24 06:45
Physical Exam
General: Well Developed, Well Nourished, No Apparent Distress and Comfortable
HEENT: Normocephalic, Anicteric and Moist Mucous Membranes
Respiratory: Clear and Non Labored Respirations
Cardiac: S1/S2, Irregular Rhythm and Peripheral Edema (Trace)
Breast: Deferred by me
GI: Soft, Non Tender, Non Distended and Normal Bowel Sounds
Rectal: Deferred by Provider
Genito-urinary: No Costovertebral Tender
Musculoskeletal: No Clubbing and No Cyanosis
Skin: Warm and Dry
Neuro: Awake, Alert and Oriented (To herself)
Hematologic/Lymphatic: No Lymphadenopathy
Psych: Calm
Impression / Plan
-
Atrial fibrillation, persistent
-Rate controlled on diltiazem 360 mg daily and metoprolol succinate 100 mg twice daily
-Oral Anticoagulation: None due to prior GI bleed, family declined endoscopic eval
-[id number]: Score at least 5 (HTN, age 75 or more, Diabetes Mellitus, female gender)
-No pauses on telemetry review
UTI, per primary
Hypertension, stable on current medical therapy
Type 2 diabetes mellitus, per primary
Dementia, chronic, lives in memory care
Data Reviewed
-
EKG: Report Reviewed by me (Atrial fibrillation with PACs, rate 84)
Labs: Labs Reviewed by me
Old Records: Reviewed
[2024-08-20 11:00] VITALS: BP 100/44
[2024-08-20 11:32] LABS: Glucose - Point of Care 170 mg/dl (70-99)
[2024-08-20] MEDS: NOVOLOG FLEXPEN-LOW RESISTANCE 1 UNITS SC (13:27)
[2024-08-20] MEDS: CARDIZEM CD 360 MG PO (13:29)
--- NOTE | 2024-08-20 14:22 | CM ---
Chart reviewed and patient was admitted from the [facility] where patient was currently having rehab. Plan will be for patient to return to the [facility] when stable. senior clinical project manager reached out to admissions at the [facility] who is aware of plan.
Plan; Physical therapy are recommending skilled and plan is for skilled placement at the [facility].
[2024-08-20 15:00] VITALS: BP 107/76
--- NOTE | 2024-08-20 15:08 | WOUNDNOTE ---
[facility] RN NOTE: Reviewed chart and met with patient. Reviewed note and picture from past admission. 08/01 picture appears to be a DTI. Today wound appears to have opened and is likely a stage 2 PI. Patient has a dean for moisture management and is on a
[facility] Air bed with turning schedule. Barrier ointments used PRN and are at bedside. Heels off-loaded on pillows and are intact. Will update RN and confirm orders with hospitalist.
--- NOTE | 2024-08-20 15:24 | W.PN.HOSP.TC ---
Today's Communication/Plan
-
DC ceftriaxone
DC in a.m. once sensitivities are available.
Assessment / Plan
Assessment / Plan
Assessment/Plan
78 y/o female with past medical history significant for hypertension, A-Fib, dementia and recent hospitalization for urinary retention and UTI. Patient left with Giles and PO abx on 08/03. Abx completed on 08/08. Giles was removed on 08/15 for
voiding trial and patient has not been able to void well since. NH attempted to replace Giles today without success so patient sent to the ED. In the ED, Giles placed for grossly purulent urine.
# Urinary tract infection/urinary retention\\
# History of Klebsiella Pneumoniae in the urine
-Failed Trial of Void of Giles Catheter outpatient
-Bethanechol added and when patient is discharged, she will need to be discharged with Giles catheter as per urology, appreciate urology
-WBC 11.7 on admission
-Giles inserted in the ER
-IV ceftriaxone continued -DC
-cw IV Ampicillin given preliminary urine culture is showing Enterococcus - [facility] - can release sensitivities info tomorrow
-Follow urine cultures
-Tylenol as needed for fever
#Pauses on Telemetry on 08/19/24, some greater than 2 seconds long
#Paroxysmal A-fib
-Diltiazem and metoprolol
-Okay to continue beta tk
-Appreciate cardiology evaluation
#Type 2 DM
-Insulin Sliding Scale and monitor blood sugars
#Dementia, unspecified
-Seroquel continued
#GERD
Continue pantoprazole
# DVT prophylaxis
-Lovenox subcu
# CODE STATUS
-DNR
Anticipated Discharge: Within 24 hours
Subjective/Interval History
-
Date of Service: August 20, 2024
Voicing no specific complaints
Objective Data
-
Labs:
Laboratory Results
08/20/24
06:45
WBC 8.4
Hgb 10.0 L
Hct 31.1 L
Plt Count 247
Sodium 140
Potassium 4.2
Chloride 107
Carbon Dioxide 24
BUN 8
Creatinine 0.7
Glucose 117 H
Calcium 8.7
Vital Signs:
Vital Signs
Temp Pulse Resp BP Pulse Ox
98.0 F 69 16 100/44 94
08/20/24 11:00 08/20/24 11:00 08/20/24 11:00 08/20/24 11:00 08/20/24 11:00
I&O
08/19/24 08/20/24 08/21/24
06:59 06:59 06:59
Intake Total 300 / 300 620 / 620
Output Total 300 / 300 350 / 350
Balance 0 / 0 270 / 270
Review of Systems
-
Unable to obtain full review of systems at this time due to: Dementia
Physical Exam
-
General: Comfortable
Respiratory: Non Labored Respirations; Negative Accessory Resp Muscle Use
Cardiac: Regular Rhythm and S1/S2
GI: Soft and Nontender
Neuro: Awake and Alert
Psych: Calm
--- NOTE | 2024-08-20 16:25 | WOUNDNOTE ---
LEFT BUTTOCK STAGE 2
[2024-08-20] MEDS: LOVENOX 40 MG SC (17:01)
[2024-08-20 17:02] LABS: Glucose - Point of Care 135 mg/dl (70-99)
[2024-08-20 19:43] VITALS: BP 118/41
[2024-08-20] MEDS: TOPROL XL 100 MG PO (20:04)
[2024-08-20 21:40] LABS: Glucose - Point of Care 146 mg/dl (70-99)
[2024-08-20 23:47] VITALS: BP 120/55
[2024-08-21] VITALS (7 sets, daily range): BP systolic 105–113; BP diastolic 38–85
[2024-08-21] MEDS: AMPICILLIN 108 MG IV ×4 (04:11→22:20)
[2024-08-21 05:49] LABS: Hematocrit 28.9 % (37.0-47.0); Hemoglobin 9.3 g/dL (12.0-16.0); Mean Corp Hgb Conc. 32.2 g/dL (33.0-37.0); Mean Corpuscular Hgb 29.7 pg (27.0-31.0); Mean Corpuscular Volume 92.3 fL (81.0-99.0); Mean Platelet Volume 9.9 fL (7.4-10.4); Platelet Count 251 10^3/uL (130-400); Red Blood Cell Count 3.13 10^6/uL (4.20-5.40); Red Cell Dist. Width 13.2 % (11.5-14.5); White Blood Cell Count 8.1 10^3/uL (4.8-10.8)
[2024-08-21 06:11] LABS: Blood Urea Nitrogen 8 mg/dl (7-17); Calcium 8.6 mg/dl (8.4-10.2); Carbon Dioxide 26 mmol/L (22-30); Chloride 106 mmol/L (98-107); Estimated Creatinine Clearance 61 ml/min; Glucose 113 mg/dl (70-99); Potassium 4.4 mmol/L (3.5-5.1); Sodium 139 mmol/L (135-145); eGFR > 60.00
--- NOTE | 2024-08-21 07:54 | W.PN.URO.CBU ---
Today's Communication / Plan
-
treaet UTI
discharge with dean
outpt follow up
Assessment / Plan
-
enterococcal UTI
urinary retention- recurrent
treat UTI- awaiting sensitivities
continue dean- on bethanechol
will need outpt f/u for assessment of repeat voiding trial
Diagnosis
-
Date of Service: August 21, 2024
-
Patient Diagnosis:
urinary retention
UTI
Subjective
-
pt awake this am
offers no complaints
urine clear
ucx + for enterococcus
Objective
-
Vital Signs
Temp Pulse Resp BP Pulse Ox
98.5 F 87 18 109/85 98
08/21/24 02:58 08/21/24 02:58 08/21/24 02:58 08/21/24 02:58 08/21/24 02:58
Intake and Output
08/20/24 08/21/24 08/22/24
06:59 06:59 06:59
Intake Total 620 / 620 822 / 822
Output Total 350 / 350 350 / 350
Balance 270 / 270 472 / 472
Intake:
Oral fluids 420 / 420 390 / 390
IV fluids (Total) 216 / 216
IV piggybacks 200 / 200 216 / 216
Output:
Urine, Dean 350 / 350 350 / 350
Laboratory Results
08/21/24 05:17
08/21/24 05:17
Review of Systems
-
Unable to obtain full review of systems at this time due to: Other (denies any specific complaints)
Physical Exam
-
General - no acute distress
Abdomen - soft, non-tender
Genitalia - edan in place- urine clear
[2024-08-21] MEDS: TOPROL XL 100 MG PO (08:07)
[2024-08-21] MEDS: MIRALAX 17 GRAMS PO (08:07)
[2024-08-21] MEDS: SEROQUEL 25 MG PO ×3 (08:09→22:20)
[2024-08-21] MEDS: PROTONIX 40 MG PO ×2 (08:09→20:09)
[2024-08-21] MEDS: FLOMAX 0.4 MG PO (08:09)
[2024-08-21] MEDS: CARDIZEM CD 360 MG PO (08:10)
[2024-08-21 08:11] LABS: Glucose - Point of Care 110 mg/dl (70-99)
[2024-08-21] MEDS: NOVOLOG FLEXPEN-LOW RESISTANCE SC ×3 (08:11→16:35)
[2024-08-21] MEDS: TRIPLE PASTE 1 APPLIC TOPICAL ×2 (08:14→20:07)
[2024-08-21] MEDS: BALMEX CREAM 1 APPLIC TOPICAL ×2 (08:14→20:08)
--- NOTE | 2024-08-21 10:11 | PN.CDI ---
CDI
- -
CDI:
Physician Documentation Request
Admit Date: 08/18/24 15:20
Dear Doctor Lucho,
Please review the following and provide your response in the progress notes.
Clinical Indicators:
Pt admitted with UTI and urinary retention.
08/18 RN note stage 2 left buttock pressure injury POA.
Physician documentation of the type and location of wounds is required for compliant documentation. Based on the above clinical findings and your assessment, please provide the following in your progress note:
1. Location of the ulcer/wound, including laterality.
2. Type (etiology) of ulcer/wound:
Stage 2 left buttock pressure injury POA
Non-pressure injury of left buttock POA
Other
Use of terms such as suspected, likely, concern for, or probable (associated with a specific diagnosis that is being evaluated, monitored, or treated as if it exists) are acceptable and can be coded in the inpatient setting, when documented at the
time of discharge.
Thank you,
Caty Julian RN, BSN
CDI Specialist
Available via [facility] [employer]
Please use your independent medical judgment in providing your response.
*Source: National Pressure Ulcer Advisory Panel (NPUAP)
--- NOTE | 2024-08-21 10:17 | PN.CDI ---
CDI
- -
CDI:
Physician Documentation Request
Admit Date: 08/18/24 15:20
Dear Doctor Lucho,
Please review the following and provide your response in the progress notes.
Clinical Indicators:
Pt admitted with UTI and urinary retention.
08/20 Cardiology note: 'Comment: AFib can be termed persistent but with no sinus seen (so far) and no plans to restore sinu/pursue rhythm control we can accept permanent AFib.
08/20 Progress Note: ' #Paroxysmal A-fib.'
If due to potential conflicting documentation, please provide further specificity regarding atrial fibrillation, such as:
Paroxysmal atrial fibrillation - terminates spontaneously or with intervention within 7 days of onset
Persistent atrial fibrillation - episodes of continuous AF that last more than 7 days and do not self-terminate
Permanent atrial fibrillation - when a decision has been made to accept the presence of AF and there is no further attempt to restore or maintain sinus rhythm
Other - please specify
Use of terms such as suspected, likely, concern for, or probable (associated with a specific diagnosis that is being evaluated, monitored, or treated as if it exists) are acceptable and can be coded in the inpatient setting, when documented at the
time of discharge.
Thank you,
Caty Julian RN, BSN
CDI Specialist
Available via [place] [employer]
Please use your independent medical judgment in providing your response.
[2024-08-21 11:39] LABS: Glucose - Point of Care 114 mg/dl (70-99)
--- NOTE | 2024-08-21 11:44 | CM ---
Chart reviewed and physical therapy are recommending skilled placement, per urology paint with Giles will need void trials. Referral sent to [facility]
Plan; Skilled placement at [facility] when stable. No Auth required.
[2024-08-21] MEDS: TYLENOL 650 MG PO (12:45)
--- NOTE | 2024-08-21 15:07 | W.PN.HOSP.TC ---
Addendum entered and electronically signed by Corbin Yepez MD 08/22/24 07:48:
stage 2 left buttock pressure injury POA
Afib is persistent
Original Note:
Today's Communication/Plan
-
ID consult
DC planning
Assessment / Plan
Assessment / Plan
Assessment/Plan
78 y/o female with past medical history significant for hypertension, A-Fib, dementia and recent hospitalization for urinary retention and UTI. Patient left with Giles and PO abx on 08/03. Abx completed on 08/08. Giles was removed on 08/15 for
voiding trial and patient has not been able to void well since. NH attempted to replace Giles today without success so patient sent to the ED. In the ED, Giles placed for grossly purulent urine.
# Urinary tract infection/urinary retention
# History of Klebsiella Pneumoniae in the urine
# UTI -VRE in urine
-Failed Trial of Void of Giles Catheter outpatient
-Bethanechol added and when patient is discharged, she will need to be discharged with Giles catheter as per urology, appreciate urology
-WBC 11.7 on admission
-Giles inserted in the ER
-dc IV Ampicillin given urine culture with VRE.Consult ID
#Pauses on Telemetry on 08/19/24, some greater than 2 seconds long
#Paroxysmal A-fib
-Diltiazem and metoprolol
-Okay to continue beta tk
-Appreciate cardiology evaluation
#Type 2 DM
-Insulin Sliding Scale and monitor blood sugars
#Dementia, unspecified
-Seroquel continued
#GERD
Continue pantoprazole
# DVT prophylaxis
-Lovenox subcu
# CODE STATUS
-DNR
Anticipated Discharge: Within 24 hours
Subjective/Interval History
-
Date of Service: August 21, 2024
pleasantly confused
voices no specific complaints
Objective Data
-
Labs:
Laboratory Results
08/21/24
05:17
WBC 8.1
Hgb 9.3 L
Hct 28.9 L
Plt Count 251
Sodium 139
Potassium 4.4
Chloride 106
Carbon Dioxide 26
BUN 8
Creatinine 0.7
Glucose 113 H
Calcium 8.6
Vital Signs:
Vital Signs
Temp Pulse Resp BP Pulse Ox
98.5 F 78 18 109/38 97
08/21/24 11:13 08/21/24 11:13 08/21/24 11:13 08/21/24 11:13 08/21/24 11:13
I&O
08/20/24 08/21/24 08/22/24
06:59 06:59 06:59
Intake Total 620 / 620 822 / 822
Output Total 350 / 350 350 / 350
Balance 270 / 270 472 / 472
Review of Systems
-
Unable to obtain full review of systems at this time due to: Dementia
Physical Exam
-
General: Comfortable
Respiratory: Non Labored Respirations; Negative Accessory Resp Muscle Use
Cardiac: Regular Rhythm and S1/S2; Negative Tachycardic
GI: Soft and Nontender
Neuro: Awake, Alert and Oriented (self)
Psych: Calm and Confused; Negative Agitated
Data Reviewed
-
Labs: Labs Reviewed by me
--- NOTE | 2024-08-21 15:10 | PTCARENOTE ---
Spoke with Dr. Yepez, that pt will go to facility with Dean in since pt had previously failed with taking out the dean.
--- NOTE | 2024-08-21 15:27 | CON.ID ---
Consultation
-
Date/Time Consultation Requested: 08/21/2024 1358
Date/Time Consultation Performed: 08/21/2024 1520
Requesting Provider: Dr. Yepez
Performing Provider: Dr. Chauhan
Reason for Consultation: VRE UTI
Chief Complaint / Past History
History of Present Illness
Maggie Wilson is an 78-year-old female being evaluated at the request of Dr. Yepez in regards to VRE UTI. History is obtained from chart review, along with patient interview. Patient has an underlying history of HTN and recently was hospitalized
for urinary retention and UTI. Prior cultures grew out Klebsiella pneumoniae, and the patient was treated with a course of ceftriaxone, and transition to cefuroxime through 08/07/2024.
The patient presented back to the ER on 08/18 following inability to void once her Giles catheter was removed on 08/15. When a new Giles was placed, she was found to have grossly purulent urine. Urine cultures are now showing the presence of VRE,
and Infectious Diseases is asked to comment upon further antibiotic therapy. The patient has an underlying history of dementia and little further history could be provided by the patient.
Past History
Additional Past Medical History:
HTN
A-fib
Dementia
GERD
DM type II
Allergy History:
No Known Allergies Allergy (Unverified 07/25/24 19:47)
Medications Reviewed: Yes
Current Antibiotics:
Ampicillin
Social History
Tobacco: Non-Smoker
Alcohol: None
Drug: None
Living: Assisted Living
Employment: Not Employed
Family History
Family History: Unable to Obtain
Review of Systems
Vital Signs
Temp Pulse Resp BP Pulse Ox
98.5 F 78 18 109/38 97
08/21/24 11:13 08/21/24 11:13 08/21/24 11:13 08/21/24 11:13 08/21/24 11:13
Physical Exam
Physical Exam
Constitutional: Comfortable, Chronically Ill, Non-toxic and Obese
Head: Normocephalic
Eyes: Pupils Equal, Pupils Round, No Conjunctival Hemorrhage and Sclera Anicteric
Oral: No Thrush and No Ulcers
Cardiovascular: Regular Rate and S1/S2; Negative S3/S4 or Murmur
Pulmonary: Clear; Negative Wheezes or Rales
Gastrointestinal: Non Tender and Non Distended
Genito-Urinary: Giles and Clear Urine; Negative CVA Tenderness, Turbid Urine or Hematuria
Extremities: Edema (trace); Negative Cyanosis or Erythema
Neurological: Awake and Alert
Psychological: Calm
Lab / Diagnostic Study Results
08/21/24 05:17
08/21/24 05:17
Abs Immat Gran (auto) 0.1 10^3/uL (0-0.05) H 08/18/24 11:43
Absolute Neuts (auto) 8.0 10^3/uL (1.4-6.5) H 08/18/24 11:43
Absolute Lymphs (auto) 2.7 10^3/uL (1.2-3.4) 08/18/24 11:43
Absolute Monos (auto) 0.7 10^3/uL (0.1-0.6) H 08/18/24 11:43
Absolute Basos (auto) 0.1 10^3/uL (0-0.2) 08/18/24 11:43
Immature Gran % 0.5 % (0-0.5) 08/18/24 11:43
Neutrophils % 68.0 % (42.2-75.2) 08/18/24 11:43
Lymphocytes % 22.8 % (20.5-51.1) 08/18/24 11:43
Monocytes % 6.2 % (1.7-9.3) 08/18/24 11:43
Eosinophils % 1.8 % (0-6) 08/18/24 11:43
Basophils % 0.7 % (0-2) 08/18/24 11:43
Lactic Acid 1.2 mmol/L (0.7-2.0) 08/18/24 14:31
Ur Squamous Epith Cells 0-2 /LPF (Few) 08/18/24 11:33
Microbiology Results
Micro:
08/18/24 11:33 Urine Culture - Final
Urine Enterococcus faecium - VRE
Assessment / Plan
Leukocytosis
Complicated urinary tract infection secondary to VRE
HTN
A-fib
Dementia
GERD
DM type II
Recommendations:
Discontinue further ampicillin.
Begin Zyvox 600 mg p.o. twice daily x 10 days.
Monitor white count and temperature curve.
Would also trend platelets during therapy to assure no thrombocytopenia, which can be seen on linezolid therapy.
Following the completion of therapy, patient should have a repeat urine culture to assess clearance of the recovered organism.
[2024-08-21 16:28] LABS: Glucose - Point of Care 180 mg/dl (70-99)
[2024-08-21] MEDS: LOVENOX 40 MG SC (17:21)
[2024-08-21] MEDS: TOPROL XL PO (20:08)
[2024-08-21] MEDS: ZYVOX 600 MG PO (20:09)
[2024-08-21 21:36] LABS: Glucose - Point of Care 124 mg/dl (70-99)
[2024-08-22 03:36] VITALS: BP 104/80
[2024-08-22] MEDS: AMPICILLIN 108 MG IV ×2 (04:14→09:04)
[2024-08-22 07:05] VITALS: BP 132/74
[2024-08-22 07:46] LABS: Glucose - Point of Care 114 mg/dl (70-99)
[2024-08-22] MEDS: NOVOLOG FLEXPEN-LOW RESISTANCE SC ×3 (07:49→16:31)
[2024-08-22 07:52] LABS: Hematocrit 28.5 % (37.0-47.0); Hemoglobin 9.1 g/dL (12.0-16.0); Mean Corp Hgb Conc. 31.9 g/dL (33.0-37.0); Mean Corpuscular Hgb 29.4 pg (27.0-31.0); Mean Corpuscular Volume 91.9 fL (81.0-99.0); Mean Platelet Volume 9.6 fL (7.4-10.4); Platelet Count 249 10^3/uL (130-400); Red Cell Dist. Width 13.3 % (11.5-14.5); White Blood Cell Count 8.5 10^3/uL (4.8-10.8)
[2024-08-22] MEDS: ZYVOX 600 MG PO ×2 (08:38→20:58)
[2024-08-22] MEDS: FLOMAX 0.4 MG PO (08:38)
[2024-08-22] MEDS: SEROQUEL 25 MG PO ×3 (08:38→21:00)
[2024-08-22] MEDS: CARDIZEM CD 360 MG PO (08:39)
[2024-08-22] MEDS: PROTONIX 40 MG PO ×2 (08:39→20:57)
[2024-08-22] MEDS: TOPROL XL 100 MG PO ×2 (08:39→20:58)
[2024-08-22] MEDS: BALMEX CREAM 1 APPLIC TOPICAL ×2 (08:40→20:56)
[2024-08-22] MEDS: TRIPLE PASTE 1 APPLIC TOPICAL ×2 (08:40→20:58)
[2024-08-22] MEDS: DESENEX/MITRAZOL/ZEASORB 1 APPLIC TOPICAL ×2 (08:40→20:57)
[2024-08-22] MEDS: MIRALAX PO (08:41)
[2024-08-22 08:49] LABS: Blood Urea Nitrogen 9 mg/dl (7-17); Calcium 8.4 mg/dl (8.4-10.2); Carbon Dioxide 27 mmol/L (22-30); Chloride 104 mmol/L (98-107); Estimated Creatinine Clearance 53 ml/min; Glucose 111 mg/dl (70-99); Potassium 4.7 mmol/L (3.5-5.1); Sodium 141 mmol/L (135-145); eGFR > 60.00
--- NOTE | 2024-08-22 11:26 | PTCARENOTE ---
spoke with about C.Diff testing, no further orders at this time
[2024-08-22 11:46] VITALS: BP 111/71
[2024-08-22 11:54] LABS: Glucose - Point of Care 168 mg/dl (70-99)
--- NOTE | 2024-08-22 11:54 | CM ---
Addendum entered by Ana Marie 08/22/24 15:46:
Order was placed for discharge and employment case manager reached out to admissions at [facility] and they state that it is too late to accept patient today, they also need COVID test completed which needs to be ordered. Physician made aware.
Original Note:
production line manager reviewed patient's chart and met with patient and spoke with patient's spouse David by phone, , and discharge plan reviewed with patient's spouse, plan is for patient to return to [facility] for skilled care when stable,
when patient completes her skilled therapy plan is to return to Memory care unit.
Plan; Skilled placement at the [facility], no Auth required.
[facility]
Report [phone]
[2024-08-22 15:03] VITALS: BP 164/65
--- NOTE | 2024-08-22 15:34 | W.PN.HOSP.TC ---
Today's Communication/Plan
-
DC
Assessment / Plan
Assessment / Plan
Assessment/Plan
78 y/o female with past medical history significant for hypertension, A-Fib, dementia and recent hospitalization for urinary retention and UTI. Patient left with Giles and PO abx on 08/03. Abx completed on 08/08. Giles was removed on 08/15 for
voiding trial and patient has not been able to void well since. NH attempted to replace Giles today without success so patient sent to the ED. In the ED, Giles placed for grossly purulent urine.
# Urinary tract infection/urinary retention
# History of Klebsiella Pneumoniae in the urine
# UTI -VRE in urine
-Failed Trial of Void of Giles Catheter outpatient
-Bethanechol added and when patient is discharged, she will need to be discharged with Giles catheter as per urology, appreciate urology
-WBC 11.7 on admission -normal now
-Giles inserted in the ER
urine culture with VRE - appt ID input -for Linezolid for 10 days and follow repeat UCX.
#Pauses on Telemetry on 08/19/24, some greater than 2 seconds long
#Paroxysmal A-fib
-Diltiazem and metoprolol
-Okay to continue beta tk
-Appreciate cardiology evaluation
#Type 2 DM
-Insulin Sliding Scale and monitor blood sugars
#Dementia, unspecified
-Seroquel continued
#GERD
Continue pantoprazole
# DVT prophylaxis
-Lovenox subcu
# CODE STATUS
-DNR
Medically stable for DC today
Total time of dc 32 min
Anticipated Discharge: Today
Subjective/Interval History
-
Date of Service: August 22, 2024
pleasantly confused. Keeps smiling but does not say much.
Objective Data
-
Labs:
Laboratory Results
08/22/24
07:36
WBC 8.5
Hgb 9.1 L
Hct 28.5 L
Plt Count 249
Sodium 141
Potassium 4.7
Chloride 104
Carbon Dioxide 27
BUN 9
Creatinine 0.8
Glucose 111 H
Calcium 8.4
Vital Signs:
Vital Signs
Temp Pulse Resp BP Pulse Ox
97.9 F 98 20 164/65 96
08/22/24 15:03 08/22/24 15:03 08/22/24 15:03 08/22/24 15:03 08/22/24 15:03
I&O
08/21/24 08/22/24 08/23/24
06:59 06:59 06:59
Intake Total 822 / 822 336 / 336
Output Total 350 / 350 400 / 400
Balance 472 / 472 -64 / -64
Review of Systems
-
Unable to obtain full review of systems at this time due to: Dementia
Physical Exam
-
General: Comfortable
Respiratory: Non Labored Respirations; Negative Accessory Resp Muscle Use
Cardiac: Regular Rhythm and S1/S2
GI: Soft and Nontender
Neuro: Awake and Alert
Psych: Calm and Confused; Negative Agitated
[2024-08-22 16:27] LABS: Glucose - Point of Care 146 mg/dl (70-99)
[2024-08-22] MEDS: LOVENOX 40 MG SC (17:07)
--- NOTE | 2024-08-22 17:34 | W.PN.ID1 ---
Date of Service
Date of Service: August 22, 2024
Today's Communication
Continue Zyvox.
Assessment / Plan
Leukocytosis
Complicated urinary tract infection secondary to VRE
HTN
A-fib
Dementia
GERD
DM type II
Recommendations:
Continue Zyvox 600 mg p.o. twice daily x 10 days.
Monitor white count and temperature curve.
Would also trend platelets during therapy to assure no thrombocytopenia, which can be seen on linezolid therapy.
Following the completion of therapy, patient should have a repeat urine culture to assess clearance of the recovered organism.
Chief Complaint
-: UTI
Subjective / Review of Systems
Review of Systems: No Fever
Vital Signs / Physical Exam
Vital Signs
Vital Signs
Temp Pulse Resp BP Pulse Ox
97.9 F 98 20 164/65 96
08/22/24 15:03 08/22/24 15:03 08/22/24 15:03 08/22/24 15:03 08/22/24 15:03
Physical Exam
Constitutional: No Acute Distress, Comfortable, Chronically Ill and Non-toxic
Cardiovascular: S1/S2; Negative S3/S4
Pulmonary: Non Labored
Gastrointestinal: Soft and Non Tender
Skin: Negative Rash or Jaundice
Psychological: Calm
Objective Data
Lab Data
Lab Results
08/22/24 07:36
08/22/24 07:36
Estimated Creat Clear 53 ml/min 08/22/24 07:36
Lactic Acid 1.2 mmol/L (0.7-2.0) 08/18/24 14:31
Total Bilirubin Cancelled 08/18/24 11:43
AST Cancelled 08/18/24 11:43
ALT Cancelled 08/18/24 11:43
Alkaline Phosphatase Cancelled 08/18/24 11:43
Most recent labs reviewed.
Micro Results:
08/18/24 11:33 Urine Culture - Final
Urine Enterococcus faecium - VRE
Urine Culture Final 08/21/24-0836
CC: Greater than 100,000 CFU/ML Enterococcus faecium - VRE
Isolation Precautions Required
Called to [id number] on 08/21/24 at 0835 by [place] [id number]
Organism 1 Enterococcus faecium - VRE
1. Enterococcus faecium - VRE
M.I.C. RX
--------- ---
Ampicillin >8 R
Daptomycin 4 SDD
Susceptible Dose Dependent - Optimize Dosing
Gentamicin Synergy Screen <=500 S
Susceptible result indicates synergy is likely with a cell
wall active agent that is also susceptible
(e.g.ampicillin,penicillin,vancomycin)
Linezolid 2 S
Levofloxacin >4 R
Nitrofurantoin-Urine Only <=32 S
Tetracycline <=4 S
Vancomycin >16 R
Care Review
Plan reviewed with: Physician (Hospitalist)
[2024-08-22 21:26] LABS: Glucose - Point of Care 149 mg/dl (70-99)
[2024-08-22 23:00] VITALS: BP 145/59
[2024-08-23 07:00] VITALS: BP 112/61
[2024-08-23 08:14] LABS: Glucose - Point of Care 121 mg/dl (70-99)
[2024-08-23] MEDS: NOVOLOG FLEXPEN-LOW RESISTANCE SC ×2 (08:25→12:05)
[2024-08-23] MEDS: TOPROL XL 100 MG PO (08:31)
[2024-08-23] MEDS: PROTONIX 40 MG PO (08:31)
[2024-08-23] MEDS: SEROQUEL 25 MG PO (08:31)
[2024-08-23] MEDS: ZYVOX 600 MG PO (08:31)
[2024-08-23] MEDS: FLOMAX 0.4 MG PO (08:31)
[2024-08-23] MEDS: MIRALAX 17 GRAMS PO (08:31)
[2024-08-23] MEDS: CARDIZEM CD 360 MG PO (08:31)
[2024-08-23] MEDS: TRIPLE PASTE 1 APPLIC TOPICAL (08:33)
[2024-08-23] MEDS: BALMEX CREAM 1 APPLIC TOPICAL (08:33)
[2024-08-23] MEDS: DESENEX/MITRAZOL/ZEASORB 1 APPLIC TOPICAL (08:34)
[2024-08-23 09:04] LABS: Mean Corp Hgb Conc. 33.3 g/dL (33.0-37.0); Mean Corpuscular Hgb 30.9 pg (27.0-31.0); Mean Corpuscular Volume 92.6 fL (81.0-99.0); Mean Platelet Volume 10.5 fL (7.4-10.4); Platelet Count 236 10^3/uL (130-400); Red Blood Cell Count 3.24 10^6/uL (4.20-5.40); Red Cell Dist. Width 13.3 % (11.5-14.5); White Blood Cell Count 7.8 10^3/uL (4.8-10.8)
[2024-08-23 10:11] LABS: Blood Urea Nitrogen 8 mg/dl (7-17); Calcium 8.5 mg/dl (8.4-10.2); Carbon Dioxide 25 mmol/L (22-30); Chloride 105 mmol/L (98-107); Estimated Creatinine Clearance 71 ml/min; Glucose 103 mg/dl (70-99); Potassium 4.6 mmol/L (3.5-5.1); Sodium 140 mmol/L (135-145); eGFR > 60.00
[2024-08-23 10:55] LABS: COVID-19 Antigen Negative (Negative)
[2024-08-23 11:51] LABS: Glucose - Point of Care 115 mg/dl (70-99)
--- NOTE | 2024-08-23 11:56 | W.PN.HOSP.TC ---
Today's Communication/Plan
-
DC
Assessment / Plan
Assessment / Plan
Assessment/Plan
78 y/o female with past medical history significant for hypertension, A-Fib, dementia and recent hospitalization for urinary retention and UTI. Patient left with Giles and PO abx on 08/03. Abx completed on 08/08. Giles was removed on 08/15 for
voiding trial and patient has not been able to void well since. NH attempted to replace Giles today without success so patient sent to the ED. In the ED, Giles placed for grossly purulent urine.
# Urinary tract infection/urinary retention
# History of Klebsiella Pneumoniae in the urine
# UTI -VRE in urine
-Failed Trial of Void of Giles Catheter outpatient
-Bethanechol added and when patient is discharged, she will need to be discharged with Giles catheter as per urology, appreciate urology
-WBC 11.7 on admission -normal now
-Giles inserted in the ER
urine culture with VRE - appt ID input -for Linezolid for 10 days and follow repeat UCX.
#Pauses on Telemetry on 08/19/24, some greater than 2 seconds long
#Paroxysmal A-fib
-Diltiazem and metoprolol
-Okay to continue beta tk
-Appreciate cardiology evaluation
#Type 2 DM
-Insulin Sliding Scale and monitor blood sugars
#Dementia, unspecified
-Seroquel continued
#GERD
Continue pantoprazole
# DVT prophylaxis
-Lovenox subcu
# CODE STATUS
-DNR
Had left a message to her yesterday for a call back.
Medically stable for DC today
Total time of dc 32 min
Anticipated Discharge: Today
Subjective/Interval History
-
Date of Service: August 23, 2024
No overnight issues.
Objective Data
-
Labs:
Laboratory Results
08/23/24
08:27
WBC 7.8
Hgb 10.0 L
Hct 30.0 L
Plt Count 236
Sodium 140
Potassium 4.6
Chloride 105
Carbon Dioxide 25
BUN 8
Creatinine 0.6
Glucose 103 H
Calcium 8.5
Vital Signs:
Vital Signs
Temp Pulse Resp BP Pulse Ox
98 F 97 18 122/61 98
08/23/24 07:00 08/23/24 07:00 08/23/24 07:00 08/23/24 08:31 08/23/24 07:00
I&O
08/22/24 08/23/24 08/24/24
06:59 06:59 06:59
Intake Total 336 / 336 120 / 120
Output Total 400 / 400 450 / 450
Balance -64 / -64 -330 / -330
Review of Systems
-
Unable to obtain full review of systems at this time due to: Dementia and Other ( Pleasantly smiles but does not converse.)
Physical Exam
-
General: No Apparent Distress
Respiratory: Non Labored Respirations; Negative Accessory Resp Muscle Use
Cardiac: Regular Rhythm and S1/S2
GI: Soft and Nontender
Genito-urinary: Clear Urine and Giles
Neuro: Awake and Alert
Psych: Calm
[2024-08-23 12:12] VITALS: BP 106/76
--- NOTE | 2024-08-23 12:15 | CM ---
Patient is for transfer to the [facility] today, car pick up driver is at 2:30pm, by ambulance, patient with dementia. Spouse David
contacted and updated, COVID test completed.
[facility]
Report [phone]
== END 2024-08-23 12:32 | DRG 690 ==
LOC: 4 WEST ACU 15:20
PROVIDERS: Nurse Practitioner; Registered Nurse; ADMITTING PHYSICIAN Hospitalist; ATTENDING PHYSICIAN Internal Medicine; CONSULT PHYSICIAN Specialist; EMERGENCY PHYSICIAN Emergency Medicine; FAMILY PHYSICIAN Internal Medicine Geriatric Medicine; OTHER PHYSICIAN Internal Medicine Cardiovascular Disease; OTHER PHYSICIAN Internal Medicine Infectious Disease
DX: N39.0 Urinary tract infection, site not specified (principal); F03.94 Unspecified dementia, unspecified severity, with anxiety; I48.19 Other persistent atrial fibrillation; Z16.21 Resistance to vancomycin; E11.9 Type 2 diabetes mellitus without complications; I10 Essential (primary) hypertension; L89.322 Pressure ulcer of left buttock, stage 2; B95.2 Enterococcus as the cause of diseases classified elsewhere; D18.09 Hemangioma of other sites; Z66 Do not resuscitate; E78.00 Pure hypercholesterolemia, unspecified; K21.9 Gastro-esophageal reflux disease without esophagitis; K59.00 Constipation, unspecified; M19.90 Unspecified osteoarthritis, unspecified site; M48.00 Spinal stenosis, site unspecified; Z79.899 Other long term (current) drug therapy; Z86.19 Personal history of other infectious and parasitic diseases; Z87.440 Personal history of urinary (tract) infections
CPT/HCPCS: 51702; 80048; 81003; 81015; 82962; 83605; 84132; 85025; 85027; 87077; 87086; 87186; 87811; 93005; 97163; 97530; 99284